=== PATIENT | female | born 1930 | race Caucasian/White ===

== ENCOUNTER 2017-06-11 12:28 | Outpatient (CLI) | payer MEDICARE, BC ==
--- NOTE | 2017-06-11 15:27 | ULT ---
ULTRSOUND THYROID: Date: 06-11-17 History: Follow up thyroid nodule in 86-year-old female. Comparison: 04-06-14 FINDINGS: Isthmus: 0.5 cm anteroposterior. Right lobe: 3.6 x 1.2 x 1.7 cm. Left lobe: 3.8 x 1.8 x 2.0 cm. The thyroid parenchyma is difficult to visualized for technical reasons. Previously, there was a round mixed solid and cystic well circumscribed non-lobulated lesion in the l eft lower pole. It was previously given a measurement of 1.1 x 0.9 x 1.2 cm. Current measurements are 1.5 x 1.6 x 1.4 cm, slightly larger, very slow growing. The left upper pole is difficult to visualize. The echogenicity is very heterogenous. The previously demonstrated slightly elongated, approximately 1 x 0.9 x 1.4 cm smoothly well circumscribed, cigar-sh aped solid nodule in the left mid pole with fairly homogeneous intermittent/low internal echogenicity , has not significantly changed. It displaces the left upper pole parenchyma. There is diffusely, sli ghtly heterogeneous parenchymal echogenicity bilaterally. No discrete nodule identified in the isthmu s or right lobe. IMPRESSION: 1. Very slow growing mixed solid and cystic benign nodule in left lower pole. 2. Stable solid nodule in left mid pole, unchanged. 3. Difficult to visualize left upper pole. POS: [facility]
[2017-06-11] MEDS ORDERED: Iopamidol 370 76% 100 ML VIAL ONE (17:06)
--- NOTE | 2017-06-11 17:16 | CT ---
HEAD CT WITH AND WITHOUT CONTRAST: Date: 06-11-17 Comparison: None. History: Occlusion of left posterior cerebral artery, confusion. Technique: Serial axial CT imaging is obtained at 5 mm intervals from vertex through skull base with and without contrast. FINDINGS: Imaged paranasal sinuses/mastoid air cells are well aerated. There is no displaced calvarial fracture . Precontrast imaging demonstrates no intracranial hemorrhages, midline shift, or mass effect. There is extensive periventricular deep and subcortical white matter hypodensity, evidence of small vessel di sease. The post contrast imaging is not tailored to evaluate the arterial structures as this study was not p erformed as a CT angiogram. There is a rim enhancing frontal lesion on the right abutting the anterio r aspect of the frontal horn of the right lateral ventricle. This lesion measures 1.7 cm and is new w hen compared to a CT angiogram of the head performed 07-17-16. No discrete additional lesion is noted. IMPRESSION: 1. 1.7 cm rim enhancing lesion within the right frontal region, which may signify a metastatic lesion or primary brain neoplasm. 2. Small vessel disease. 3. No intracranial hemorrhage. Code T-Dr. Torre made aware via phone at the time of interpretation on 06/11/2017. POS: [facility]
== END 2017-06-11 12:29 | disposition home or self-care (01) ==
LOC: ULT 12:28
PROVIDERS: ATTEND Specialist
DX: I66.22 Occlusion and stenosis of left posterior cerebral artery (principal); E04.1 Nontoxic single thyroid nodule; I67.9 Cerebrovascular disease, unspecified; G93.9 Disorder of brain, unspecified
CPT/HCPCS: 70470; 76536

== ENCOUNTER 2017-07-12 07:26 | Day surgery (SDC) | payer MEDICARE, BC ==
[2017-07-11 10:23] VITALS: BMI 31.0
[~2017-07-12 07:26] MED LIST: FLU VACC TS2017-18 (>65YR) 0.5 ML SYRINGE IM ONE
--- NOTE | 2017-07-12 09:12 | CT ---
CT HEAD NONCONTRAST: Date: 07/12/17 INDICATION: Intracranial mass. Preprocedural CT head prior to diagnostic lumbar puncture. FINDINGS: Noncontrast head CT, compared to 06/11/17, reveals grossly stable sized hypodense mass of the right f rontal lobe. There is no midline shift. No evidence of intracranial hemorrhage. Parenchymal volume lo ss and moderate chronic microvascular ischemic disease are present. IMPRESSION: Grossly stable sized hypodense mass of the right frontal lobe. POS: [facility]
[2017-07-12 09:46] VITALS: BP 138/95; TEMP 98.1
--- NOTE | 2017-07-12 10:16 | RAD ---
FLUOROSCOPIC GUIDED LUMBAR PUNCTURE: Clinical history: Intracranial lesion of indeterminate etiology. PROCEDURE: Informed consent was obtained from the patient. Prior to the procedure CT head examination was perfor med to exclude significant intracranial mass effect as a contraindication to the procedure. Review of the head CT does reveal grossly stable sized intracranial lesion without significant mass effect. The patient was escorted to the procedural suite and placed in a prone position. The low back was the n prepped and draped in standard sterile fashion. Topical anesthesia was achieved with buffered 1% Li docaine. A right intralaminar approach at the L3 level was selected. Using a 20 gauge needle, unevent ful access into the thecal sac was performed under fluoroscopic guidance with [facility]. Clear colorless CSF was acquired at the needle hub and subsequently, approximately 10 cc o f CSF was acquired and placed into four separate sealed sterile containers and sent to the laboratory for further analysis. There were no procedural complications. All devices were removed from the patient. Radiation Exposure Data: Fluoroscopy time: 0.2 minutes intermittent fluoroscopy. Dose: 2.8 mGy*cm^2. IMPRESSION: 1. Technically successful fluoroscopic guided lumbar puncture yielding 10 cc clear colorless CSF. 2. Laboratory results are pending. POS: [facility]
[2017-07-12 10:18] LABS: CSF Source CSF; Clarity Clear (Clear); RBC Count - Manual 0 /cumm (None Seen); Tube # 4; WBC/NonHematics Count - Manual 2 /cumm (0-5)
[2017-07-12 10:19] LABS: Color Of CSF Supernatant COLORLESS (Colorless); Tube # CSF 2; Unspun CSF Color COLORLESS (Colorless)
[2017-07-12 10:37] LABS: CSF, Glucose 71 mg/dl (40-70); CSF, Protein 51 mg/dL (15-40)
== END 2017-07-12 10:35 | disposition home or self-care (01) ==
LOC: RAD 07:26
PROVIDERS: ATTEND Surgery
DX: G93.9 Disorder of brain, unspecified (principal); I10 Essential (primary) hypertension; I25.119 Atherosclerotic heart disease of native coronary artery with unspecified angina pectoris; E78.00 Pure hypercholesterolemia, unspecified; Z86.73 Personal history of transient ischemic attack (TIA), and cerebral infarction without residual deficits; Z88.0 Allergy status to penicillin; Z79.82 Long term (current) use of aspirin; Z79.01 Long term (current) use of anticoagulants; Z95.5 Presence of coronary angioplasty implant and graft; Z90.49 Acquired absence of other specified parts of digestive tract; Z98.890 Other specified postprocedural states
CPT/HCPCS: 62270; 70450; 82945; 84157; 87070; 87205; 88112; 89051

== ENCOUNTER 2017-07-25 12:30 | Inpatient (IN) | payer MEDICARE, BC ==
[2017-07-25 13:29] VITALS: BMI 31.6
[2017-08-02] MEDS ORDERED: Levofloxacin 500 mg/D5W 100 ml Premix Bag ONE (09:09)
[2017-08-02] MEDS ORDERED: Clindamycin/D5W 900 mg/50 ml Premix Bag ONE (09:09)
--- NOTE | 2017-08-02 09:40 | CT ---
PRE AND POSTCONTRAST HEAD CT: Date: 08/02/17 HISTORY: Brain Lab protocol. Preoperative exam for brain tumor. COMPARISON: 06/11/17. TECHNIQUE: Pre and postcontrast head CT is performed in the axial plane. FINDINGS: Redemonstration of a predominantly hypodense mass in the right frontal lobe white matter. Postcontras t images demonstrate peripheral enhancement. There is also evidence of vascularity within this lesion . Lesion measures 2.1 x 1.9 cm. There are white matter hypodensities due to chronic small vessel isch emic change. Cortical mcclendon-white matter differentiation is preserved. Adequate aeration of the sinuses and mastoid air cells. There is cavernous carotid atherosclerosis. I ntact calvarium. IMPRESSION: Peripherally enhancing mass in the right frontal lobe, similar in location to the previous examinatio n. When compared to the prior exam, there has been slight interval increase in size. Currently, the m ass measures 2.1 x 1.9 cm (previously measuring 1.6 x 1.6 cm). POS: [facility]
[2017-08-02] MEDS ORDERED: Sodium Chloride 0.9% 10 ML ONE ×2 (10:05→10:06)
[2017-08-02] MEDS ORDERED: Thrombin 5000 UNITS/5 ML VIAL ONE (10:06)
[2017-08-02] MEDS ORDERED: Bacitracin Zinc Ointment 30 gm TUBE ONE (10:06)
[2017-08-02] MEDS ORDERED: Fentanyl 100 MCG/2 ML VIAL ONE ×3 (10:27→15:21)
[2017-08-02] MEDS ORDERED: PHENYLEPHRINE-NS 100 MCG/ML 10 ML SYRINGE ONE ×2 (11:47→12:55)
[2017-08-02] MEDS ORDERED: Labetalol 100 MG/20 ML MDV ONE (11:47)
[2017-08-02] MEDS ORDERED: Ondansetron PF 4 MG/2 ML Vial ONE (11:47)
[2017-08-02] MEDS ORDERED: PROPOFOL 200 MG/20 ML VIAL ONE (11:47)
[2017-08-02] MEDS ORDERED: Dexamethasone 20 MG/5 ML VIAL ONE (11:47)
[2017-08-02] MEDS ORDERED: Lidocaine 1% PF 5 ML VIAL ONE (11:47)
[2017-08-02] MEDS ORDERED: Glycopyrrolate 0.2 MG/ML 5 ML SYRINGE ONE (11:47)
[2017-08-02] MEDS ORDERED: Phenylephrine HCL 10 MG/ML VIAL ONE (12:59)
[2017-08-02] MEDS ORDERED: Iopamidol 370 76% 100 ML VIAL ONE (13:24)
[2017-08-02] MEDS ORDERED: Promethazine HCl 25 MG/ML VIAL IM PRN ×2 (14:34→14:45)
[2017-08-02] MEDS ORDERED: Mag-Al 1200 mg/1200 mg/30 ML UDCUP PO PRN (14:34)
[2017-08-02] MEDS ORDERED: Docusate 100 MG CAP PO PRN (14:34)
[2017-08-02] MEDS ORDERED: Fleet Enema 133 ML BOT PR PRN (14:34)
[2017-08-02] MEDS ORDERED: Alendronate Sodium 70 mg Tablet PO SCH (14:45)
[2017-08-02] MEDS ORDERED: Ondansetron HCl/PF 4 MG/2 ML Vial IVP PRN (14:45)
[2017-08-02] MEDS ORDERED: Promethazine HCl 25 MG/ML VIAL SLOW IVP PRN (14:45)
[2017-08-02] MEDS ORDERED: Nitroglycerin 0.4 MG TAB (25 Tab Bottle) SL PRN (15:24)
[2017-08-02] MEDS: Sodium Chloride 0.9% 1,000 ML IV SCH (16:30)
[2017-08-02] MEDS: hydrALAZINE 10 MG TAB PO SCH (16:30)
[2017-08-02] MEDS: Dofetilide 0.125 MG CAP PO SCH ×2 (16:30→20:49)
[2017-08-02] MEDS: Dexamethasone 4 mg/ml Vial SLOW IVP SCH (18:05)
[2017-08-02] MEDS: HYDROcodone/Acetaminophen 7.5/325 mg Tablet PO PRN ×2 (18:05→22:01)
[2017-08-02] MEDS: Clindamycin/D5W 900 MG in Premix Bag 1 BAG IVPB SCH (18:05)
[2017-08-02] MEDS: hydrALAZINE 20 MG/ML VIAL SLOW IVP PRN (18:09)
--- NOTE | 2017-08-02 20:03 | OP ---
SURGEON: Winston Marie M.D. TONG CARRIER: Servando Alegria PA-C OR: 12. WOUND: Type 1 wound. 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 PROCEDURES: 1. Stereotactic right frontal craniotomy for right frontal tumor resection using stereotactic CT rosie dance. 2. Use of operative microscope for microdissection. DESCRIPTION OF PROCEDURE: After informed consent was obtained from the patient, the patient was brou ght to OR 12. Proper patient pause and identification was carried out. She was placed under excelle nt general endotracheal anesthesia and positioned supine on the operating room table. Her head secur ed to the Donora edie, which was also secured to the Donora sulfide head operator. Hair was clipped in t he right frontal region near Shelbie's point and a linear palmira drawn out following stereotactic regist ration and assessment of anatomic landmarks. This area was sterilely cleansed, prepared, and draped, and proper patient pause and identification was carried out. The wound was then opened with a combi nation of sharp, monopolar, and blunt dissection and retraction occurred. A circular craniotomy was fashioned and craniotomy flap lifted. The dura was opened exposing the underlying brain. Using ster eotactic and anatomic guidance, we then proceeded with excellent accuracy down to the right frontal m ass. It was quite obvious that both on preoperative imaging and intraoperatively it was hemorrhagic, receiving blood supply from the surrounding brain and deeper and medially from ependymal vessels. I felt like we had an excellent resection. Hemostasis was maximized. We did enter the ventricle as t his was the apex of the lesion inferiorly and medially and the hemostasis was again maximized. We th en brought the microscope in for microdissection and further assessed our resection. Again, I was pl eased taken the resection back to edematous white matter that surrounded the bulk of the lesion. Pre liminary pathology was consistent with hypercellular mass. Again, I suspect this is high grade gliom a. More tissue had been sent in bulk following the frozen assessment for permanent analysis. Copiou s irrigation occurred. Hemostasis again was maximized throughout. The wound was then closed in karlene omic layers including affixing the bone flap with titanium plates and screws and closing the scalp in anatomic layers. The patient then emerged from anesthesia.
[2017-08-02] MEDS: Acetaminophen 325 MG TAB PO PRN (20:47)
[2017-08-02] MEDS: Famotidine/PF 20 mg/2ml Vial SLOW IVP SCH (20:49)
[2017-08-02] MEDS: levETIRAcetam In NaCl (Iso-Os) 250 MG in Premix Bag 1 BAG IVPB SCH (20:50)
[2017-08-03] MEDS: Clindamycin/D5W 900 MG in Premix Bag 1 BAG IVPB SCH ×2 (00:03→05:01)
[2017-08-03] MEDS: Losartan 25 MG TAB PO SCH ×3 (00:03→21:14)
[2017-08-03] MEDS: Dexamethasone 4 mg/ml Vial SLOW IVP SCH ×5 (00:03→23:56)
[2017-08-03] MEDS: hydrALAZINE 10 MG TAB PO SCH ×4 (00:03→21:14)
[2017-08-03] MEDS: diphenhydrAMINE 25 MG CAP PO SCH ×2 (00:04→21:17)
[2017-08-03] MEDS: Sodium Chloride 0.9% 1,000 ML IV SCH ×3 (05:01→21:23)
[2017-08-03 07:58] LABS: Mean Corpuscular HGB CONC 31.8 g/dL (32.0-36.0); Mean Corpuscular Hemoglobin 31.8 pg (27.0-31.0); Mean Corpuscular Volume 99.9 fl (81.0-99.0); Mean Platelet Volume 10.5 fL (7.4-10.4); Platelet Count 110 thou/uL (130-400); RBC Distribution Width 12.2 % (11.5-14.5); Red Blood Cell (RBC) Count 3.76 mill/uL (4.20-5.40); White Blood Cell (WBC) Count 20.3 thou/uL (4.8-10.8)
[2017-08-03 08:39] LABS: Band 15 % (5-11); Lymphocytes 10 % (21-51); MDiff Complete? YES; Monocytes 4 % (0-10); Neutrophil 71 % (42-75); RBC Morphology Normal
[2017-08-03] MEDS ORDERED: MAGNESIUM GLUCONATE 500 MG PO SCH (09:00)
[2017-08-03] MEDS: Calcium Carbonate 600 MG TAB PO SCH (09:10)
[2017-08-03] MEDS: Ezetimibe 10 MG TAB PO SCH (09:10)
[2017-08-03] MEDS: Famotidine/PF 20 mg/2ml Vial SLOW IVP SCH ×2 (09:11→21:16)
[2017-08-03] MEDS: Dofetilide 0.125 MG CAP PO SCH ×3 (09:12→21:17)
--- NOTE | 2017-08-03 09:56 | RAD ---
PORTABLE CHEST 1 VIEW: DATE: 08/03/17. TIME: 8:45 a.m. HISTORY: Fever. FINDINGS/IMPRESSION: The heart is enlarged. There is elevation of the right hemidiaphragm. The aorta is tortuous. A lef t-sided pacing device is present. No lobar consolidation, pneumothoraces, dannie pulmonary edema, or large effusions are seen. POS: [facility]
--- NOTE | 2017-08-03 10:06 | PRG ---
DATE OF SERVICE: 08/03/2017 Ms. Borges is postoperative day 1 from right frontal stereotactic craniotomy for tumor resection. I suspect preoperatively this is a high grade glioma and remains so. We had a satisfactory resection a nd the patient is doing well this morning. She is alert, appropriate. There may be very subtle left facial droop and the patient while she is alert does have some confusion and tells me repeatedly abo ut her family. She is in no apparent distress and moves all extremities to command. I think it best to pursue transfer to the floor to start to mobilize her and allow her to be in the company of her f amily to help with reorientation. We will also consult physiatry and continue her on Decadron. We w ill await final pathology.
--- NOTE | 2017-08-03 10:46 | CON ---
DATE OF CONSULTATION: 08/03/2017 HISTORY: This is an 86-year-old female. REASON FOR CONSULTATION: Ongoing ICU stay for 24 hours. She underwent a craniotomy by Dr. Marie for enlarging right frontal mass. I reviewed Dr. Marie's n otes and past medical history. the patient is awake, alert, responsive, but clearly lethargic. It was a 90 mm growing enhancing mass. She is apparently having some memory dysfunction. The patien t presently denies any chest pain or difficulty breathing, coughing or wheezing. She apparently has been seeing a local remediation bioanalytics consultant here. 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 Prior to that, she apparently underwent a spinal tap from what I am told. PAST MEDICAL HISTORY: Otherwise pertinent for a thyroid lesion, history of coronary artery disease, diabetes, history of previous CVA. PAST SURGICAL HISTORY: Include a previous stenting, previous carotid surgery. MEDICATIONS: Her medicine from home prior to this surgery included aspirin, Plavix, calcium, Tikosyn , Estrace, Zetia, fish oil. Losartan 50, glucosamine, Naproxen, nitroglycerin. ALLERGIES: She has allergies to PENICILLIN, HYDROCODONE, . SOCIAL/FAMILY HISTORY: Otherwise unremarkable. FAMILY HISTORY: Family history otherwise unremarkable. REVIEW OF SYSTEMS: Negative. PHYSICAL EXAMINATION: GENERAL: In the ICU, awake, responsive, in no distress. VITAL SIGNS: Sats are 96% on room air, pulse 80, blood pressure 183/86, respirations 14. NEURO: Awake, alert, responsive. CHEST: No wheezing or crackles. CARDIAC: Normal S1, S2. No gallops. ABDOMEN: Soft, no masses. Please note I reviewed all the old medical records, x-rays, imaging studies. IMPRESSION: 1. Status post craniotomy right frontal tumor for a glioblastoma. 2. History of coronary disease with multiple stents. PLAN: I have ordered a chest x-ray because she has got leukocytosis. It does not appear she has any obvious infection. White count 20,000, H&H 12 and 37. Her labs were reviewed all extensively, white count 8000 yesterda y. Chemistry profile otherwise shows normal BUN and creatinine. PTH 117. TSH is normal. The plan is to observe her in the ICU for another 24 hours. She is on Decadron, blood pressure medic ation metoprolol 50 twice a day, Cozaar 50, Keppra 250 twice a day. I will talk with the family as they arrive. Continue supportive care and PT. This is a 70 minute consultation note, 50% of the time was spent in direct patient care at the [facility]
[2017-08-03] MEDS: levETIRAcetam In NaCl (Iso-Os) 250 MG in Premix Bag 1 BAG IVPB SCH (20:01)
[2017-08-03] MEDS: levETIRAcetam 500 MG TAB PO SCH (21:17)
[2017-08-04] MEDS: Dexamethasone 4 mg/ml Vial SLOW IVP SCH ×3 (06:38→18:33)
[2017-08-04 09:08] LABS: Anion Gap 13 mmol/L (10-20); BUN (Urea Nitrogen) 23 mg/dL (9.8-20.1); Calc. Creatinine Clearance 60 mL/min (70-130); Carbon Dioxide 18 mmol/L (23-31); Chloride 115 mmol/L (98-107); Estimated GFR-MDRD 63; Glucose 142 mg/dL (83-110); Potassium 4.4 mmol/L (3.5-5.1); Sodium 142 mmol/L (136-145)
[2017-08-04] MEDS: Losartan 25 MG TAB PO SCH ×2 (09:17→20:56)
[2017-08-04] MEDS: hydrALAZINE 10 MG TAB PO SCH ×3 (09:17→20:57)
[2017-08-04] MEDS: Ezetimibe 10 MG TAB PO SCH (09:17)
[2017-08-04] MEDS: levETIRAcetam 500 MG TAB PO SCH ×2 (09:17→20:55)
[2017-08-04] MEDS: Dofetilide 0.125 MG CAP PO SCH ×3 (09:18→20:56)
[2017-08-04] MEDS: Calcium Carbonate 600 MG TAB PO SCH (09:18)
[2017-08-04] MEDS: Famotidine/PF 20 mg/2ml Vial SLOW IVP SCH (09:18)
[2017-08-04] MEDS: Sodium Chloride 0.9% 1,000 ML IV SCH (09:18)
--- NOTE | 2017-08-04 10:47 | PRG ---
DATE OF SERVICE: 08/04/2017 Ms. Borges is postoperative day 2 from right frontal stereotactic craniotomy for high grade glioma re section. Pathology has been sent to [facility] for further delineation, certainly appeared to be a high grade glioma notably a glioblastoma in my opinion during surgery. Specimen was sent and has bee n consistent with hypercellularity and of high vascular nature. We will await final pathology, but amber lim will treat it as a high grade glioma. She is doing very well. She is alert and oriented to person , year, and tells me she is at "med" and let her know she is at [place]. She moves all extremitie s to command. Her wound is healing well. I would be fine with transfer to rehabilitation. She is a lready up ambulating and voiding on her own and tolerating oral.
[2017-08-04] MEDS: hydrALAZINE 20 MG/ML VIAL SLOW IVP PRN (18:50)
[2017-08-04] MEDS: Acetaminophen 325 MG TAB PO PRN (18:55)
[2017-08-04] MEDS: Famotidine 20 MG TAB PO SCH (20:56)
[2017-08-04] MEDS: diphenhydrAMINE 25 MG CAP PO SCH (20:56)
[2017-08-05] MEDS: Sodium Chloride 0.9% 1,000 ML IV SCH ×2 (00:51→15:05)
[2017-08-05] MEDS: Dexamethasone 4 mg/ml Vial SLOW IVP SCH ×2 (00:53→06:48)
[2017-08-05] MEDS: Dexamethasone 4 MG TAB PO SCH ×2 (06:59→12:06)
[2017-08-05] MEDS: Dofetilide 0.125 MG CAP PO SCH ×3 (08:41→21:51)
[2017-08-05] MEDS: Ezetimibe 10 MG TAB PO SCH (08:41)
[2017-08-05] MEDS: Losartan 25 MG TAB PO SCH ×2 (08:41→21:50)
[2017-08-05] MEDS: Famotidine 20 MG TAB PO SCH ×2 (08:42→21:52)
[2017-08-05] MEDS: Calcium Carbonate 600 MG TAB PO SCH (08:42)
[2017-08-05] MEDS: levETIRAcetam 500 MG TAB PO SCH ×2 (08:42→21:51)
[2017-08-05] MEDS ORDERED: Estradiol 1 MG TAB PO SCH (09:00)
[2017-08-05] MEDS: hydrALAZINE 10 MG TAB PO SCH ×3 (09:48→21:51)
--- NOTE | 2017-08-05 15:16 | PRG ---
DATE OF SERVICE: 08/05/2017 SUBJECTIVE: Ms. Borges is postoperative day 3 following right frontal stereotactic craniotomy for tu mor resection. She is doing well, alert, appropriate with a well healing wound. She has had periods of hallucinations and delirium. No doubt related to her age and her steroids. Undoubtedly, her del irium is related to her age, recent surgery, but also steroid therapy as well. We are tapering this down. She is already mobilizing and I have let the family to know that we will await the pathology, she has been sent to [facility] for further evaluation. My suspicion again is high-grade glioma. T his is my suspicion both preoperatively, intraoperatively, and still postoperatively. My anticipatio n is with rehab.
[2017-08-05] MEDS ORDERED: Dexamethasone 4 mg/ml Vial SLOW IVP SCH (18:00)
[2017-08-05] MEDS: diphenhydrAMINE 25 MG CAP PO SCH (21:50)
[2017-08-06] MEDS: Sodium Chloride 0.9% 1,000 ML IV SCH (07:27)
[2017-08-06 08:03] VITALS: BP 166/94; TEMP 97.8
[2017-08-06] MEDS: Calcium Carbonate 600 MG TAB PO SCH (08:18)
[2017-08-06] MEDS: Ezetimibe 10 MG TAB PO SCH (08:18)
[2017-08-06] MEDS: Losartan 25 MG TAB PO SCH (08:18)
[2017-08-06] MEDS: levETIRAcetam 500 MG TAB PO SCH (08:18)
[2017-08-06] MEDS: hydrALAZINE 10 MG TAB PO SCH (08:19)
[2017-08-06] MEDS: Dofetilide 0.125 MG CAP PO SCH (08:19)
[2017-08-06] MEDS: Famotidine 20 MG TAB PO SCH (08:19)
--- NOTE | 2017-08-06 09:56 | PRG ---
DATE OF SERVICE: 08/06/2017 Ms. Borges is now postoperative day #4, having undergone tumor resection. She continues to improve. She is tolerating a solid diet and ambulating as well as voiding and her pain is under good control with oral medications. She has a good at neurologic baseline, is oriented to person, place and time. She is stable for discharge and she will finish up her Decadron and Protonix prescriptions. I woul d like her to remain on Keppra for the next 5 days. This prescription has been written. She will di scharge to inpatient rehab later today. There was no family at bedside to update this morning. Plea se call with any questions in patient's neurologic status. Otherwise, we will follow up on an outpat ient basis.
== END 2017-08-06 10:44 | DRG 26 ==
LOC: SURG A 08-02 07:21 → CCU 08-02 15:05 → SURG A 08-03 12:09
PROVIDERS: ADMIT Surgery; ATTEND Surgery
PROC: 00B70ZX Excision of Cerebral Hemisphere, Open Approach, Diagnostic (ICD-10-PCS; principal; 2017-08-02)
PROC: 2W30XYZ Immobilization of Head using Other Device (ICD-10-PCS; 2017-08-02)
DX: D49.6 Neoplasm of unspecified behavior of brain (principal); F05 Delirium due to known physiological condition; R44.3 Hallucinations, unspecified; T38.0X5A Adverse effect of glucocorticoids and synthetic analogues, initial encounter; Z79.02 Long term (current) use of antithrombotics/antiplatelets; I25.10 Atherosclerotic heart disease of native coronary artery without angina pectoris; Z95.5 Presence of coronary angioplasty implant and graft; Z86.73 Personal history of transient ischemic attack (TIA), and cerebral infarction without residual deficits; D72.829 Elevated white blood cell count, unspecified
CPT/HCPCS: 36416; 70470; 71045; 80048; 85025; 88307; 88325; 88331; 88334; C1713; G8978-GP-CL; G8979-GP-CJ; G8987-GO-CJ; G8988-GO-CI; J0360; J1100; J1953; J1956; J2001; J2370; J2405; J2550; J2704; J3010; J3490; J7050; J8499; J8540; S0028

== ENCOUNTER 2017-07-25 12:53 | Outpatient (CLI) | payer MEDICARE, BC ==
[2017-07-25 14:37] LABS: Hemoglobin 13.5 g/dL (12.0-16.0); Mean Corpuscular HGB CONC 33.4 g/dL (32.0-36.0); Mean Corpuscular Hemoglobin 32.8 pg (27.0-31.0); Mean Corpuscular Volume 98.3 fl (81.0-99.0); Mean Platelet Volume 9.2 fL (7.4-10.4); Platelet Count 163 thou/uL (130-400); Red Blood Cell (RBC) Count 4.12 mill/uL (4.20-5.40); White Blood Cell (WBC) Count 8.5 thou/uL (4.8-10.8)
[2017-07-25 14:43] LABS: INR-International Normal Ratio 0.9; PTT 24.1 SEC (22.9-36.1); Prothrombin Time 12.5 SEC (12.0-14.7)
[2017-07-25 15:03] LABS: Anion Gap 12 mmol/L (10-20); BUN (Urea Nitrogen) 22 mg/dL (9.8-20.1); Calc. Creatinine Clearance 0 mL/min (70-130); Calcium 10.3 mg/dL (7.8-10.44); Carbon Dioxide 25 mmol/L (23-31); Chloride 106 mmol/L (98-107); Estimated GFR-MDRD 54; Glucose 87 mg/dL (83-110); Potassium 4.3 mmol/L (3.5-5.1); Sodium 139 mmol/L (136-145)
== END 2017-07-25 12:54 | disposition home or self-care (01) ==
LOC: LABBT 12:53
PROVIDERS: ATTEND Surgery
DX: Z01.810 Encounter for preprocedural cardiovascular examination (principal); Z01.812 Encounter for preprocedural laboratory examination; C71.9 Malignant neoplasm of brain, unspecified
CPT/HCPCS: 80048; 85027; 85610; 85730; 93005; 93010

== ENCOUNTER 2017-08-22 11:41 | Inpatient (IN) | payer MEDICARE, BC ==
[2017-08-22] MEDS ORDERED: Heparin 1,000 UNITS/ML VIAL ONE (12:00)
[2017-08-22 12:06] LABS: #Basophils 0.1 thou/uL (0.0-0.2); #Eosinphils 0.1 thou/uL (0.0-0.7); #Lymphocytes 1.5 thou/uL (1.20-3.40); #Neutrophils 11.7 thou/uL (1.40-6.50); %Basophils 0.4 % (0.0-1.0); %Eosinophils 0.4 % (0.0-10.0); %Lymphocytes 10.5 % (21.0-51.0); %Monocytes 7.3 % (0.0-10.0); %Neutrophils 81.4 % (42.0-75.0); Hemoglobin 13.3 g/dL (12.0-16.0); Mean Corpuscular HGB CONC 33.3 g/dL (32.0-36.0); Mean Corpuscular Hemoglobin 32.5 pg (27.0-31.0); Mean Corpuscular Volume 97.5 fl (81.0-99.0); Mean Platelet Volume 8.6 fL (7.4-10.4); Platelet Count 154 thou/uL (130-400); RBC Distribution Width 12.5 % (11.5-14.5); White Blood Cell (WBC) Count 14.3 thou/uL (4.8-10.8)
--- NOTE | 2017-08-22 12:15 | RAD ---
CHEST ONE VIEW: History: Fall. Comparison: 08-03-17 FINDINGS: Dual-lead pacer is similar. Cardiac silhouette and mediastinal contours are similar. No new acute airspace consolidation, pneumothorax, or effusion. No displaced rib fracture is apprecia zaheer. IMPRESSION: No acute intrathoracic abnormality. No significant change. POS: [facility]
[2017-08-22 12:26] LABS: ALT (SGPT) 21 U/L (8-55); AST (SGOT) 19 U/L (5-34); Albumin 4.2 g/dL (3.4-4.8); Alkaline Phosphatase 83 U/L (40-150); Anion Gap 17 mmol/L (10-20); BUN (Urea Nitrogen) 21 mg/dL (9.8-20.1); Bilirubin, Total 0.8 mg/dL (0.2-1.2); CK (CPK) 45 U/L (29-168); Calc. Creatinine Clearance 0 mL/min (70-130); Calcium 9.9 mg/dL (7.8-10.44); Carbon Dioxide 21 mmol/L (23-31); Chloride 102 mmol/L (98-107); Estimated GFR-MDRD 49; Globulin 2.9 g/dL (2.4-3.5); Glucose 161 mg/dL (83-110); Potassium 4.9 mmol/L (3.5-5.1); Protein, Total 7.1 g/dL (6.0-8.3); Sodium 135 mmol/L (136-145)
[2017-08-22 12:28] LABS: CKMB 1.4 ng/mL (0-6.6); Troponin I 0.019 ng/mL (< 0.028)
--- NOTE | 2017-08-22 12:40 | CT ---
CT BRAIN WITHOUT CONTRAST: 08/22/2017 HISTORY: Fall on Plavix. COMPARISON: 07/12/2017 FINDINGS: The patient is status post right frontal craniotomy, new when compared to prior imaging. The visuali zed paranasal sinuses/mastoid air cells are well aerated. There is no displaced calvarial fracture. There is periventricular hypodensity, and there is cerebral volume loss. Deep to the calvarial defect, there is a nonspecific, heterogeneous lesion within the right frontal l obe, measuring in the 3.3 x 3.1 cm range. It demonstrates components that are hypodense, isodense, a nd hyperdense, when compared to the adjacent brain parenchyma. This area of abnormal density is larg er than on the 07/12/2017 examination, but the patient has undergone interval surgery. No midline shift or mass effect. Mild soft tissue swelling is seen lateral to the right orbit. IMPRESSION: 1. A 3.3 x 3.1 cm heterogeneous intraaxial lesion in the right frontal region. This may simply repr esent a postoperative cavity. There is a component of linear hyperdensity, which suggests a degree o f hemorrhage associated with this, which may be posttraumatic and/or postoperative. A brain MRI woul d be required to evaluate the postoperative cavity for a potential underlying residual lesion. 2. Soft tissue swelling in the periorbital region, laterally, on the right. Dr. Jacobs was made aware at 12:25 p.m. on 08/22/2017. CODE CR CODE T POS: [facility]
[2017-08-22 12:59] LABS: Prothrombin Time 13.7 SEC (12.0-14.7)
[2017-08-22 13:00] LABS: PTT 34.9 SEC (22.9-36.1)
--- NOTE | 2017-08-22 13:27 | CT ---
CERVICAL SPINE CT WITHOUT CONTRAST: Date: 08-22-17 Comparison: None. History: Pain, fall. Technique: Serial axial CT imaging at 2.5 mm intervals from skull base through lung apices without co ntrast. Coronal and sagittal reformatted imaging obtained. FINDINGS: Imaged lung apices are unremarkable. Incompletely imaged transvenous pacing device noted. Scattered atherosclerotic calcification of the carotid system noted bilaterally. The thyroid gland is lobulated and heterogenous with numerous associate nodules, incompletely assessed on this exam, miguel uring up to 1.2 cm on the left. The thyroid gland was better assessed on 06-11-17 thyroid ultrasound. The C1 ring is intact. Occipital condyles, dens, and C1-2 articulation appear within normal limits. T here is moderate degenerative changes at the atlantoaxial interspace. The craniocervical and cervicot horacic junction are intact. There is no significant anterolisthesis or retrolisthesis. No prevertebral soft tissue swelling. Disc space narrowing and degenerative endplate changes are noted at C3-4, C4-5, and C5-6. There is multil evel facet hypertrophic change, most prominent on the left at C2-3, C3-4 and C5-6. No displaced fracture or evidence of dislocation is seen. IMPRESSION: 1. Multilevel degenerative change with no displaced fracture or evidence of dislocation. 2. Results called to Dr. Jacobs at approximately 12:40 p.m. 08-22-17. Code CR. POS: [facility]
--- NOTE | 2017-08-22 13:28 | CT ---
CT THORACIC SPINE: 08/22/2017 HISTORY: Fall. Trauma. Pain. COMPARISON: None. TECHNIQUE: Serial axial CT imaging at 3.75 mm intervals through the thoracic spine without contrast. Coronal an d sagittal reformatted imaging obtained. FINDINGS: The imaged lung parenchyma appears grossly unremarkable. A transvenous pacing device is present. Coronary arterial calcification and stent material are parti ally imaged. There is scattered atherosclerotic calcification of the visualized aorta. Evaluation for central canal and/or neural foraminal stenosis is limited on routine CT. There is no evidence for an acute fracture within the thoracic spine. No evidence for thoracic spine dislocation. No anterolisthesis or retrolisthesis is evident. IMPRESSION: No acute fracture or evidence of dislocation seen. The results were called to Dr. Jacobs at approximately 12:35 p.m. on 08/22/2017. CODE CR POS: [facility]
--- NOTE | 2017-08-22 13:31 | CT ---
CT LUMBAR SPINE: 08/22/2017 HISTORY: Fall. Trauma. Pain. COMPARISON: None. TECHNIQUE: Serial axial CT imaging at 2.5 mm intervals through the lumbar spine without contrast. Coronal and s agittal reformatted imaging obtained. FINDINGS: There is scattered atherosclerotic calcification of the abdominal aorta and its branches. There is a tiny, exophytic lesion emanating from the posterior aspect of the upper pole right kidney, too small to characterize. Punctate, nonobstructing stone noted in the mid pole of the right kidney . There is a posterior right renal cyst noted. There is a prominent exophytic cyst emanating from t he left kidney, measuring in the 5 cm range. Evaluation for central canal and/or neural foraminal stenosis is limited on routine CT. There is deg enerative change involving the sacroiliac joints, right greater than left. There is no displaced fracture or evidence of dislocation noted. Lumbar vertebral body height and al ignment appear within normal limits. There is disk space narrowing and degenerative endplate change with a vacuum disk present at the L5-S1 level. There is prominent bilateral facet hypertrophy at L3- L4, L4-L5, and L5-S1. IMPRESSION: No acute fracture or evidence of dislocation seen. Incidental findings as described above. Results called to Dr. Jacobs at 12:35 p.m. on 08/22/2017. CODE CR POS: [facility]
[2017-08-22] MEDS ORDERED: Acetaminophen 500 MG TAB ONE (14:15)
[2017-08-22] MEDS ORDERED: Clindamycin 150 MG CAP ONE (14:15)
[2017-08-22 15:21] LABS: Bilirubin Negative (Negative); Blood, Urine Negative (Negative); Clarity CLEAR (Clear); Glucose, Urine (Dipstick) Negative (Negative); Leukocyte Negative (Negative); Nitrite Negative (Negative); Protein, Urine (Dipstick) Negative (Neg-Trace); Urobilinogen 0.2 mg/dL (0.2-1.0); pH, Urine 6.5 (5.0-9.0)
[2017-08-22 17:53] LABS: PTT 33.7 SEC (22.9-36.1); Prothrombin Time 13.5 SEC (12.0-14.7)
--- NOTE | 2017-08-22 18:01 | HP ---
PRIMARY CARE PROVIDER: Lukas Yates M.D. Referred to [facility] by [facility]. HISTORY OF PRESENT ILLNESS: The patient was found down on the floor this morning by her daughter. S he was noted to have redness about her right cheek yesterday and today. It covers her entire right f ankur including her nose. Her temperature was 101 in the ER, she was noted not to have any chills or s weats by the family. She had brain surgery this month on the here for craniotomy for glioblastom a. She has been lucid at times, not lucid at times. 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 CURRENT MEDICATIONS: Alendronate 70 mg once a week, aspirin 81 mg a day, hydralazine 10 mg 3 times a day, losartan 50 mg twice a day, metoprolol 25 mg twice a day, Zetia 10 mg a day, Ranexa 500 mg twic e a day, vitamin D3 daily, Tikosyn 125 mcg 3 times a day. ALLERGIES: HYDROCODONE, PENICILLIN. PAST SURGICAL HISTORY: Right carotid endarterectomy, pacemaker, cardiac ablation craniotomy on 08/02. FAMILY HISTORY: Daughter here thinks the father of cancer and the mother had mini strokes and d ementia. SOCIAL HISTORY: The patient is . No tobacco, no alcohol. CODE STATUS: FULL per daughter who is at bedside. REVIEW OF SYSTEMS: Unobtainable. The patient will smile and respond, but gives no lucid answers at the present time. VITAL SIGNS: Done in the emergency room. Most recent blood pressure 124/68, pulse 80, respirations 17, temperature 99.9, O2 sat 94. Maximum temperature was 101 orally at 1329 hours. HEENT: Revealed pupils equal, round. Extraocular movements are grossly intact. Tympanic membranes are clear. Nose is clear. Oral mucous membranes are wet. NECK: No jugular venous distention, adenopathy or thyromegaly. CHEST: Clear to auscultation and percussion. HEART: Regular rate and rhythm. First and second heart sounds are clear. No murmurs or gallops see n. ABDOMEN: Soft, bowel sounds are normal. No hepatosplenomegaly, no mass, no rebound, no bruits. EXTREMITIES: Reveal no cyanosis, clubbing or edema. PULSES: Carotid, radial, femoral, and dorsalis pedis pulses intact. SKIN: She has an incision on her right temporal area with some surrounding erythema, but no fluctuan ce or drainage. She has an erythema from the left side of her nose, her right cheek down to the jawl ine to the ear, to the lateral side of the right orbit. NEUROLOGIC: Difficult to exam. Cranial nerves II-XII are intact. Deep tendon reflexes are grossly symmetric. Toes were downgoing. Strength was grossly symmetric. LABORATORY AND X-RAY FINDINGS: Chest x-ray: Pacemaker, left upper chest. Tortuous aorta. Lung fie lds clear, no cardiomegaly, reviewed by me. Brain CT, postoperative changes in the right frontal are a with a void and perhaps some hemorrhagic transformation. EKG paced rhythm, AV sequential dual rebekah carlos pacemaker reviewed by me. C-spine is reported as no change, thoracic and lumbar spine, there is no fracture. LABORATORY DATA: White count 14.3, hemoglobin 13.3, platelet count 154,000. INR 1.0. Comp metaboli c profile, creatinine 1.06, BUN is 21, CO2 is 21, sodium 135, potassium 4.9, chloride 102. Liver fun ction tests normal. Cardiac enzymes normal. Urinalysis clear. ASSESSMENT: 1. Cellulitis of the face. 2. Postop glioblastoma of the right frontal lobe. 3. Paced rhythm with history of atrial arrhythmias. 4. Hypertension. 5. Dyslipidemia. PLAN: 1. IV antibiotics because of recent surgery. We will give both Rocephin and vancomycin transiently. Blood cultures have been ordered. 2. Postop changes on CT scan. I have discussed it with Dr. Marie's PA or expected and required no further investigation. 3. Continue Tikosyn, losartan, metoprolol. 4. Continue Levitra.
[2017-08-22] MEDS: Acetaminophen 325 MG TAB PO PRN ×2 (18:38→23:31)
[2017-08-22] MEDS: Sodium Chloride 0.9% 1,000 ML IV SCH (18:38)
[2017-08-22] MEDS ORDERED: cefTRIAXone\\ROCEPHIN 2 GM in Sodium Chloride 0.9% 100 ML IVPB SCH (20:00)
[2017-08-22] MEDS: Ondansetron HCl/PF 4 MG/2 ML Vial IVP PRN (20:38)
[2017-08-22] MEDS ORDERED: Vancomycin HCl 1 GM in Premix Bag 1 BAG IVPB SCH (21:00)
[2017-08-22] MEDS: levETIRAcetam 500 MG TAB PO SCH (21:19)
[2017-08-22] MEDS: Dofetilide 0.125 MG CAP PO SCH (21:20)
[2017-08-22] MEDS: Losartan 25 MG TAB PO SCH (21:20)
[2017-08-23] MEDS ORDERED: Lorazepam 2 MG/ML VIAL SLOW IVP PRN (03:49)
[2017-08-23 05:35] LABS: #Lymphocytes 1.3 thou/uL (1.20-3.40); #Monocytes 1.1 thou/uL (0.11-0.59); %Basophils 0.1 % (0.0-1.0); %Eosinophils 0.1 % (0.0-10.0); %Lymphocytes 7.8 % (21.0-51.0); %Monocytes 6.5 % (0.0-10.0); %Neutrophils 85.5 % (42.0-75.0); Hemoglobin 11.7 g/dL (12.0-16.0); Mean Corpuscular HGB CONC 33.5 g/dL (32.0-36.0); Mean Corpuscular Hemoglobin 32.3 pg (27.0-31.0); Mean Corpuscular Volume 96.4 fl (81.0-99.0); Mean Platelet Volume 8.9 fL (7.4-10.4); Platelet Count 149 thou/uL (130-400); RBC Distribution Width 12.3 % (11.5-14.5); Red Blood Cell (RBC) Count 3.61 mill/uL (4.20-5.40); White Blood Cell (WBC) Count 16.4 thou/uL (4.8-10.8)
[2017-08-23 06:06] LABS: Anion Gap 13 mmol/L (10-20); BUN (Urea Nitrogen) 14 mg/dL (9.8-20.1); Calc. Creatinine Clearance 62 mL/min (70-130); Calcium 9.4 mg/dL (7.8-10.44); Carbon Dioxide 21 mmol/L (23-31); Chloride 105 mmol/L (98-107); Estimated GFR-MDRD 66; Glucose 153 mg/dL (83-110); Potassium 3.7 mmol/L (3.5-5.1); Sodium 135 mmol/L (136-145)
[2017-08-23] MEDS ORDERED: Prevnar 13-Val Conj/PF 0.5 ML SYRINGE IM ONE (09:00)
[2017-08-23] MEDS: Dofetilide 0.125 MG CAP PO SCH ×3 (09:12→21:03)
[2017-08-23] MEDS: Losartan 25 MG TAB PO SCH ×2 (09:12→20:50)
[2017-08-23] MEDS: levETIRAcetam 500 MG TAB PO SCH ×2 (09:12→20:49)
[2017-08-23] MEDS: Sodium Chloride 0.9% 1,000 ML IV SCH (09:19)
--- NOTE | 2017-08-23 13:37 | PRG ---
DATE OF SERVICE: 08/23/2017 I was contacted to see Ms. Borges and talking with the patient's son. I was asked to see Ms. Borges, she is well known to me. 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 I just saw her in clinic on Sunday. Her wound is healing well. Neurologicall y, she was at her baseline, alert, appropriate with some mild confusion, but following commands and f rankly looked quite good. We set her up to see Oncology on Sunday and according to her son, ike owusu Sunday and Sunday, she began to have some swelling in the right side of her face. This though subsequently improved on its own. She then was found down yesterday and full cranial spinal imaging is negative frankly and looking at her head CT, she has resection cavity consistent with where I took her tumor out there is some Surgicel in the resection cavity that is dissolvable and for hemostasis . There is no pneumocephalus or nothing convincing for intracranial abscess. There is also nothing convincing for extraaxial fluid or purulent material nor is there any evidence of subgaleal collectio n. I see no pneumocephalus and it is too early for any type of osteomyelitis; however, the nurse con tacted me that the patient's white count was 14 yesterday and 16 today. She has been afebrile and parisi d been on Decadron. Urine is clear of infection. However, there was some purulent material coming o ut of the bottom portion of the patient's wound. I went to see the wound and I was able to extrude a bit more purulent material and then there was no more, the Vicryl suture then came out and I suspect ed suture abscess. The patient's exam is consistent with vacillation between somnolence to awake and interactive with the examiner. However, she does appear to be encephalopathic. I am concerned abou t intracranial infection here, but I am not convinced of it. I have discussed with her son taking he r back to the OR today and he has asked if it is possible for us to just see how she does today and i nto the evening with antibiotics. I have let him know that is certainly reasonable. I would like to move her to the ICU and I will tentatively list her for surgical washout tomorrow. We will also ask Dr. Camacho to weigh in and will broaden her spectrum to vancomycin, cefepime and Flagyl. Looking at her wound now, there is no evidence of purulent material. There is no fluctuance underneath the woun d. The patient denies any evidence of headache, but again, I am not convinced by her exam necessaril y. We will plan to reevaluate her in the morning. This may have just been a superficial abscess rel ated to the suture that will improve with antibiotics, coupled with encephalopathy, made worse by the Ativan that she received this morning and the restless night she had, although again it could be caryn p intracranial infection. We will know more over the course of the next 12-24 hours.
--- NOTE | 2017-08-23 14:41 | PDOC.PN ---
- Subjective Encounter Start Date: 08/23/17 Encounter Start Time: 09:35 Subjective: awake, not in distress -: responds well to verbal stimuli -: right facial erythema has resolved this am - Objective MAR Reviewed: Yes Vital Signs & Weight: Vital Signs (12 hours) Temp Pulse Resp BP Pulse Ox 08/23/17 11:42 99.5 F 87 20 181/81 H 96 08/23/17 08:00 97.6 F 80 18 08/23/17 07:30 97.5 F L 87 16 146/94 H 94 L 08/23/17 05:02 97.6 F 80 18 174/75 H 94 L Weight Weight 178 lb 12.8 oz I&O: 08/22/17 08/23/17 08/24/17 06:59 06:59 06:59 Intake Total 1090 450 Balance 1090 450 Result Diagrams: 08/23/17 04:17 08/23/17 04:17 Phys Exam - Physical Examination HEENT: PERRLA, moist MMs Neck: no JVD, supple Respiratory: no wheezing, no rales Cardiovascular: RRR, no significant murmur Gastrointestinal: soft, non-tender, positive bowel sounds Musculoskeletal: no edema, pulses present Neurological: non-focal, moves all 4 limbs Dx/Plan (1) Facial cellulitis Code(s): L03.211 - CELLULITIS OF FACE Status: Acute (2) Glioblastoma Code(s): C71.9 - MALIGNANT NEOPLASM OF BRAIN, UNSPECIFIED Status: Chronic Comment: h/o recent resection of mass (3) DM type 2 (diabetes mellitus, type 2) Status: Chronic Qualifiers: Diabetes mellitus complication status: with unspecified complications Diabetes mellitus ferry terminal supervisor insulin use: without retirement use Qualified Code( s): E11.8 - Type 2 diabetes mellitus with unspecified complications (4) HTN (hypertension) Code(s): I10 - ESSENTIAL (PRIMARY) HYPERTENSION Status: Chronic Qualifiers: Hypertension type: essential hypertension Qualified Code(s): I10 - Essential (primary) hypertension (5) Dyslipidemia Code(s): E78.5 - HYPERLIPIDEMIA, UNSPECIFIED Status: Chronic - Plan is on vanc, ceftriaxone and flagyl -: empiric keppra for sz prophylaxis -: had a small area of suture abscess at the surgical site -: tx to icu for close monitoring, d/w Dr.Marie -: mobilize as tolerated in the room * . Review of Systems - Medications/Allergies Allergies/Adverse Reactions: Allergies Allergy/AdvReac Type Severity Reaction Status Date / Time adhesive Allergy BURNING Verified 07/25/17 13:31 RASH hydrocodone Allergy Verified 07/25/17 13:31 Penicillins Allergy ORAL Verified 07/25/17 13:31 SWELLING Medications: Current Medications Acetaminophen (Tylenol) 650 mg PO Q4H PRN PRN Reason: Headache/Fever or Pain Last Admin: 08/22/17 23:31 Dose: 650 mg Dofetilide (Tikosyn) 0.125 mg PO TID [facility] Last Admin: 08/23/17 09:12 Dose: 0.125 mg Sodium Chloride (Normal Saline 0.9%) 1,000 mls @ 70 mls/hr IV .[id number] [facility] Last Admin: 08/23/17 09:19 Dose: 1,000 mls Vancomycin HCl 1 gm/ Device 200 mls @ 200 mls/hr IVPB 1600 SOHAN Metronidazole 500 mg/ Device 100 mls @ 100 mls/hr IVPB Q8HR [facility] Cefepime HCl 2 gm/ Syringe 2.5 (ml/ Sterile Water) 12.5 mls @ 150 mls/hr SLOW IVP 0200,1400 [facility] Levetiracetam (Keppra) 250 mg PO BID [facility] Last Admin: 08/23/17 09:12 Dose: 250 mg Losartan Potassium (Cozaar) 50 mg PO BID [facility] Last Admin: 08/23/17 09:12 Dose: 50 mg Metoprolol Succinate (Toprol Xl) 50 mg PO BID [facility] Last Admin: 08/23/17 09:12 Dose: 50 mg Miscellaneous Medication (Pharmacy To Dose) 1 each IVPB PRN PRN PRN Reason: . Ondansetron HCl (Zofran) 4 mg IVP Q6H PRN PRN Reason: Nausea/Vomiting Last Admin: 08/22/17 20:38 Dose: 4 mg
[2017-08-23] MEDS: Cefepime 2 GM, Syringe 2.5 ML in Sterile Water 10 ML SLOW IVP SCH (14:52)
[2017-08-23] MEDS: metroNIDAZOLE 500 MG in Premix Bag 1 BAG IVPB SCH ×2 (15:04→22:39)
[2017-08-23] MEDS: Ondansetron HCl/PF 4 MG/2 ML Vial IVP PRN (15:36)
[2017-08-23] MEDS: Vancomycin HCl 1 GM in Premix Bag 1 BAG IVPB SCH (16:57)
--- NOTE | 2017-08-23 17:58 | CON ---
DATE OF CONSULTATION: 08/23/2017 REASON FOR CONSULTATION: CCU management. Consult encompasses 50 minutes of time, greater than 50% of the time was spent with the patient and a round the patient's floor. HISTORY OF PRESENT ILLNESS: The patient is an 86-year-old female who was recently hospitalized for a craniotomy for resection of a glioblastoma. She was found down this morning at home by her daughter . She had redness to her right cheek. She has some drainage out of her previous surgical wound. Sh carina had temperature of 101. She has been placed in the CCU for close observation and being considered for possible opening of the wound tomorrow. Her son is at the bedside. The patient has improved sin ce her time in the ER. Face is no longer red and she is more lucid. PAST MEDICAL HISTORY: 1. Craniotomy for glioblastoma resection. 2. Pacemaker placement. 3. Atrial tachycardia. 4. Hypertension. 5. Hyperlipidemia. 6. Osteoporosis. 7. Right carotid endarterectomy. 8. Cardiac ablation. ALLERGIES: HYDROCODONE, PENICILLIN. MEDICATIONS: 1. Alendronate 70 mg weekly. 2. Aspirin 81 mg daily. 3. Hydralazine 10 mg 3 times a day. 4. Losartan 50 mg twice daily. 5. Metoprolol 25 mg twice daily. 6. Zetia 10 mg daily. 7. Ranexa 500 mg twice daily. 8. Vitamin D3 daily. 9. Tikosyn 125 mcg 3 times a day. FAMILY MEDICAL HISTORY: Remarkable for cancer, strokes, and dementia. SOCIAL HISTORY: Nonsmoker, does not consume alcohol. . REVIEW OF SYSTEMS: Unobtainable secondary to the patient's altered mental status. PHYSICAL EXAMINATION: VITAL SIGNS: Temperature 99.5, pulse 87, respirations 20, O2 sat 96% on room air, blood pressure 181 /81. GENERAL: She is awake and alert and in no acute distress. HEENT: The surgical wound in the right frontal area is noted and appears to be healing okay except f or the very lateral portion where there is a scab. I cannot express any drainage. Pupils are reacti ve. Sclerae are anicteric. Oropharynx is clear. NECK: Without adenopathy, JVD, or bruits. LUNGS: Clear. CARDIAC: S1, S2 regular. ABDOMEN: Soft, nontender. EXTREMITIES: No clubbing, cyanosis, or edema. LABORATORY DATA: White blood cell count 16.4, hematocrit 34.9, platelet count 149. Sodium 135, pota ssium 3.7, chloride 105, CO2 21, BUN 14, creatinine 0.8, glucose 153. ASSESSMENT: 1. Possible cellulitis at previous surgical site. 2. Recent resection of glioblastoma. 3. Medical problems as listed above. PLAN: She is being watched closely overnight. I have reviewed the orders in the chart. She is rece iving broad spectrum IV antibiotic therapy. Dr. Camacho has been asked for his opinion, there is libby e to add from my standpoint, I will be happy to follow with you.
--- NOTE | 2017-08-23 19:47 | CON ---
DATE OF CONSULTATION: 08/23/2017 REASON FOR CONSULTATION: Possible postop wound infection following craniectomy. HISTORY OF PRESENT ILLNESS: 86-year-old patient who had a recent diagnosis of glioblastoma after a surgical procedure carried out earlier in July 2017. This was a stereotactic right frontal craniotomy with right frontal tumor resection. The operative report was reviewed. Dura was opened exposing the underlying brain and this was proceeded to a right frontal mass resection. This was hemorrhagic receiving blood supply from surrounding brain and deeper from ependymal vessels. The patient did well immediately after the procedure, went home, and was quite functional, but over the past 48 hours has developed progressively worsening sedation associated with swelling around his right periorbital region with erythema, some drainage from the lower end of the incision for the craniotomy. The patient has been admitted and started on broad -spectrum antimicrobial coverage with Flagyl, cefepime, and vancomycin. There has been marked improvement of the area of swelling and erythema. She opens her eyes. She is able to interact with examiner, recognize family members. A bit sluggish in her speech. She has a little bit of pain in the right side of her head. No sore throat, odynophagia, or dysphagia. No cough or dyspnea. No chest pain. No abdominal pain. She is voiding spontaneously. PAST MEDICAL HISTORY: Cardiomyopathy, ischemic with AICD in place; atrial fibrillation with ablation; hypertension; hyperlipidemia; and recently diagnosed glioblastoma, status post resection. MEDICATIONS AT HOME: Alendronate, aspirin, hydralazine, losartan, metoprolol, Zetia, Ranexa, vitamin D, and Tikosyn. ALLERGIES: HYDROCODONE AND PENICILLIN WITH RASH. PAST SURGICAL HISTORY: 1. Right carotid endarterectomy. 2. AICD placement. 3. Cardiac ablation. 4. Stents. FAMILY HISTORY: Noncontributory. SOCIAL HISTORY: . Never a smoker. No alcoholic beverage use. PHYSICAL EXAMINATION: VITAL SIGNS: T-max 98.6, blood pressure 180/80, pulse 87, respirations 18-20, O2 sat 96%. GENERAL: She is awake. She is a bit drowsy, arousable. She knows where she was and recognized relatives. SKIN: With the area in the periorbital region with marked improvement in the swelling noted and documented by photos by family members. At the very lower end of the craniotomy incision, there is an area of very small opening or dehiscence. I could not produce any drainage from that site. No erythema is noticeable at this time around the site. HEENT: Ocular movements appear conjugate. Oral cavity is moist, no lesions. NECK: Supple. No jugular vein distention. LUNGS: Symmetric clear breath sounds. HEART: S1, S2 regular rate. No S3, S4. ABDOMEN: Soft, not distended. No ascites. No tenderness. No organomegaly. No bladder distention. EXTREMITIES: No joint inflammatory activity. Pulses 1+ in dorsalis pedis. Cap refill is normal. She has diffuse stiffness. NEUROLOGIC: She is awake, but drowsy. Oriented times self and place. LABORATORY DATA: White cell count 14,000 and 16,000, hemoglobin 11, platelets 149. INR is 1.0. Sodium 135, creatinine 0.82. Liver profile is normal. Albumin is 4.2. Urinalysis is normal. Influenza test was negative. Blood cultures x2 are negative thus far. The patient had lumbar, thoracic, and cervical spine CT with no fractures or dislocation. CT of brain without contrast from yesterday with a 3.3 x 3.1 cm heterogeneous intraaxial lesion in right frontal region, which is probably a postop cavity. Some soft tissue swelling in periorbital region. ASSESSMENT: 1. Ischemic cardiomyopathy with automated implantable cardioverter defibrillator in place. 2. Glioblastoma, status post resection. 3. Periorbital inflammatory changes with edema, which has improved markedly after admission. 4. Concern with postoperative infection. The patient to undergo a limited I&D of the site, I believe tomorrow. In the meantime, continue current antimicrobials. Anaerobes are less likely in this circumstance. We will look in basically MRSA and gram-negative rods as the main concern. The other possibility will be an allergic reaction with angioedema in view of quick improvement. There is the possibility of a more complicated process but this is not apparent from the CT scan. MTDD
[2017-08-23] MEDS ORDERED: hydrALAZINE 20 MG/ML VIAL SLOW IVP SCH (22:45)
[2017-08-23] MEDS ORDERED: Furosemide 20 MG/2 ML VIAL SLOW IVP SCH (23:59)
[2017-08-24] MEDS: Cefepime 2 GM, Syringe 2.5 ML in Sterile Water 10 ML SLOW IVP SCH ×3 (02:17→22:09)
[2017-08-24 04:41] LABS: Band 5 % (5-11); Hemoglobin 13.2 g/dL (12.0-16.0); Lymphocytes 25 % (21-51); MDiff Complete? YES; Mean Corpuscular Hemoglobin 31.8 pg (27.0-31.0); Mean Corpuscular Volume 96.4 fl (81.0-99.0); Mean Platelet Volume 8.7 fL (7.4-10.4); Monocytes 3 % (0-10); Neutrophil 67 % (42-75); Platelet Count 164 thou/uL (130-400); RBC Distribution Width 12.2 % (11.5-14.5); Red Blood Cell (RBC) Count 4.15 mill/uL (4.20-5.40); White Blood Cell (WBC) Count 20.4 thou/uL (4.8-10.8)
[2017-08-24 04:46] LABS: Anion Gap 17 mmol/L (10-20); CRP (Inflammatory) 11.89 mg/dL (= or < 0.5); Carbon Dioxide 23 mmol/L (23-31); Chloride 97 mmol/L (98-107); Potassium 3.1 mmol/L (3.5-5.1); Sodium 134 mmol/L (136-145)
[2017-08-24] MEDS: metroNIDAZOLE 500 MG in Premix Bag 1 BAG IVPB SCH ×3 (06:19→22:09)
[2017-08-24] MEDS ORDERED: Potassium Chloride 40 MEQ in Sodium Chloride 0.9% 250 ML 250 ML IVPB SCH (07:45)
--- NOTE | 2017-08-24 07:53 | PRG ---
DATE OF SERVICE: 08/24/2017 The patient developed some rhonchi and evidence of pulmonary edema last night which responded to Lasi x. She is scheduled to go down to the OR for I&D of her wound today. PHYSICAL EXAMINATION: VITAL SIGNS: Her temperature is 98.9, pulse 92, blood pressure 130/54, 24 intake 1612, output 1665. HEENT: There is a scab on the lateral aspect of the wound, not expressing any pus at this time. Pup ils react. Sclerae icteric. Oropharynx clear. NECK: No JVD. CHEST: Fairly clear without wheezing. CARDIAC: S1 and S2 regular. ABDOMEN: Soft. EXTREMITIES: No edema. LABORATORY DATA: Sodium 134, potassium 3.1, chloride 97, CO2 23. C-reactive protein 11.8, white blo od cell count 20, hematocrit 40, platelet count 164. ASSESSMENT: 1. Possible pulmonary edema last night. 2. Wound infection. PLAN: She was gently diuresed last night with some improvement. I will go ahead and check x-ray. S he is on broad spectrum IV antibiotics. She may need supplemental oxygen. Her potassium will be rep laced.
--- NOTE | 2017-08-24 08:12 | PRG ---
DATE OF SERVICE: 08/24/2017 Ms. Borges is hospital day 2 for admission for a change in level of alertness and concern of wound dr newman. I am seeing her this morning, she continues to vacillate between alert and confused and somn olent. She has been afebrile, but her white blood cell count has gone up from 14 to 16 to 20 today. Her sed rate is mildly elevated, but her CRP is more significantly elevated. She has a small 2-3 mm area opening in the bottom of her wound. There has been some drainage. It is not frankly purulent this morning. My concern is obviously infection, I will recommend return to the OR for reopening of her wound, culture and removal of the bone to evaluate intracranially and essentially wash the wound out with the plan for placement of the bone. I am awaiting her son's arrival, so we can further disc uss this, but my recommendation is surgical debridement.
[2017-08-24] MEDS ORDERED: Lidocaine 1% PF 5 ML VIAL ONE (08:21)
[2017-08-24] MEDS ORDERED: PHENYLEPHRINE-NS 100 MCG/ML 10 ML SYRINGE ONE (08:21)
[2017-08-24] MEDS ORDERED: PROPOFOL 200 MG/20 ML VIAL ONE (08:21)
[2017-08-24] MEDS ORDERED: Ondansetron HCl/PF 4 MG/2 ML Vial ONE (08:21)
[2017-08-24] MEDS ORDERED: Glycopyrrolate 0.2 MG/ML 5 ML SYRINGE ONE (08:21)
--- NOTE | 2017-08-24 08:26 | RAD ---
FRONTAL RADIOGRAPH CHEST: DATE: 08/24/17. COMPARISON: 08/22/17. HISTORY: Hypoxemia. FINDINGS: Mild pulmonary vascular prominence. Stable dual-lead transvenous pacing device. No pneumothorax, pl eural fluid, lobar consolidation, or alveolar edema. IMPRESSION: No acute findings. POS: CINDY
[2017-08-24] MEDS: Sodium Chloride 0.9% 1,000 ML IV SCH (08:30)
[2017-08-24] MEDS ORDERED: Bacitracin Zinc Ointment 30 gm TUBE ONE (08:37)
[2017-08-24] MEDS ORDERED: Sodium Chloride 0.9% 10 ML ONE (08:37)
[2017-08-24] MEDS ORDERED: Thrombin 5000 UNITS/5 ML VIAL ONE (08:37)
[2017-08-24] MEDS ORDERED: Bupivacaine HCl 0.5%/Epinephrine 1:200,000/PF 30 ml Vial ONE (08:37)
[2017-08-24] MEDS ORDERED: Fentanyl 250 MCG/5 ML VIAL ONE (09:29)
--- NOTE | 2017-08-24 09:36 | PRG ---
DATE OF SERVICE: 08/24/2017 I spoke with Ms. Borges's a son and daughter. I let them know I am concerned that the patient has an intracranial infection and as such, I recommended a return to the operating room for opening of her right frontal craniotomy wound with cultures and irrigation and debridement. Goals indications, risk s, alternatives, complications were discussed with the family. They understand the risks and they wi sh that we proceed with surgery. DIAGNOSES: History of right frontal glioblastoma resection with concern of intracranial infection.
[2017-08-24] MEDS: Losartan 25 MG TAB PO SCH ×2 (14:15→21:00)
[2017-08-24] MEDS: Dofetilide 0.125 MG CAP PO SCH ×3 (14:16→21:00)
--- NOTE | 2017-08-24 14:21 | PDOC.PN ---
- Subjective Encounter Start Date: 08/24/17 Encounter Start Time: 07:45 Subjective: awake, not in distress -: is getting ready to go to OR - Objective MAR Reviewed: Yes Vital Signs & Weight: Vital Signs (12 hours) Temp Pulse Resp Pulse Ox 08/24/17 13:47 98 08/24/17 11:05 97.6 F 08/24/17 08:00 98.3 F 80 20 92 L Weight Weight 178 lb 12.8 oz Most Recent Monitor Data Heart Rate from ECG 80 NIBP 125/72 NIBP BP-Mean 84 Respiration from ECG 16 SpO2 99 I&O: 08/23/17 08/24/17 08/25/17 06:59 06:59 06:59 Intake Total 1090 1612 Output Total 1661 355 Balance 1090 -53 -355 Result Diagrams: 08/24/17 04:03 08/24/17 04:03 Phys Exam - Physical Examination HEENT: PERRLA, sclera anicteric Neck: no JVD, supple Respiratory: no wheezing, no rales Cardiovascular: RRR, no significant murmur Gastrointestinal: soft, non-tender, positive bowel sounds Musculoskeletal: pulses present Neurological: non-focal, moves all 4 limbs Dx/Plan (1) Facial cellulitis Code(s): L03.211 - CELLULITIS OF FACE Status: Acute (2) Glioblastoma Code(s): C71.9 - MALIGNANT NEOPLASM OF BRAIN, UNSPECIFIED Status: Chronic Comment: h/o recent resection of mass (3) DM type 2 (diabetes mellitus, type 2) Status: Chronic Qualifiers: Diabetes mellitus complication status: with unspecified complications Diabetes mellitus terminal gauger supervisor insulin use: without snf use Qualified Code( s): E11.8 - Type 2 diabetes mellitus with unspecified complications (4) HTN (hypertension) Code(s): I10 - ESSENTIAL (PRIMARY) HYPERTENSION Status: Chronic Qualifiers: Hypertension type: essential hypertension Qualified Code(s): I10 - Essential (primary) hypertension (5) Dyslipidemia Code(s): E78.5 - HYPERLIPIDEMIA, UNSPECIFIED Status: Chronic - Plan hemostable -: wbc is 20k likely due to margination -: got a dose of lasix overnight for congestion? -: is going to OR for debridement -: is on cefepime, vanc, flagyl. * . Is also on Tikosyn, toprol, cozaar and keppra for seizure prophylaxis. Review of Systems - Medications/Allergies Allergies/Adverse Reactions: Allergies Allergy/AdvReac Type Severity Reaction Status Date / Time adhesive Allergy BURNING Verified 07/25/17 13:31 RASH hydrocodone Allergy Verified 07/25/17 13:31 Penicillins Allergy ORAL Verified 07/25/17 13:31 SWELLING Medications: Current Medications Acetaminophen (Tylenol) 650 mg PO Q4H PRN PRN Reason: Headache/Fever or Pain Last Admin: 08/22/17 23:31 Dose: 650 mg Dofetilide (Tikosyn) 0.125 mg PO TID [facility] Last Admin: 08/24/17 14:16 Dose: Not Given Vancomycin HCl 1 gm/ Device 200 mls @ 200 mls/hr IVPB 1600 SOHAN Last Admin: 08/23/17 16:57 Dose: 200 mls Metronidazole 500 mg/ Device 100 mls @ 100 mls/hr IVPB Q8HR [facility] Last Admin: 08/24/17 14:18 Dose: 100 mls Cefepime HCl 2 gm/ Syringe 2.5 (ml/ Sterile Water) 12.5 mls @ 150 mls/hr SLOW IVP 0200,1400 [facility] Last Admin: 08/24/17 14:18 Dose: 12.5 mls Levetiracetam 250 mg/ Sodium (Chloride) 102.5 mls @ 205 mls/hr IVPB BID [facility] Losartan Potassium (Cozaar) 50 mg PO BID [facility] Last Admin: 08/24/17 14:15 Dose: Not Given Metoprolol Succinate (Toprol Xl) 50 mg PO BID [facility] Last Admin: 08/24/17 14:15 Dose: Not Given Miscellaneous Medication (Pharmacy To Dose) 1 each IVPB PRN PRN PRN Reason: . Ondansetron HCl (Zofran) 4 mg IVP Q6H PRN PRN Reason: Nausea/Vomiting Last Admin: 08/23/17 15:36 Dose: 4 mg
[2017-08-24] MEDS: levETIRAcetam 500 MG TAB PO SCH (14:46)
[2017-08-24] MEDS: Vancomycin HCl 1 GM in Premix Bag 1 BAG IVPB SCH (16:15)
--- NOTE | 2017-08-24 17:52 | OP ---
SURGEON: Winston Marie M.D. KITCHEN HELPER: None. PREPROCEDURE DIAGNOSIS: Concern of right frontal craniotomy infection following glioblastoma resecti on. POSTPROCEDURE DIAGNOSIS: Concern of right frontal craniotomy infection following glioblastoma resect ion. PROCEDURES: Reopening of right frontal craniotomy wound with intraoperative cultures, irrigation and debridement of infection. PROCEDURE: After informed consent was obtained from the patient's family, the patient was brought to OR 503. Proper patient pause and identification was carried out and the patient was placed in excel lent general endotracheal anesthesia. All appropriate points were padded. The right frontal region was identified. The wound is healed well except for a 3 mm region in the inferior portion of the wou nd that was red and had purulent drainage. As such, hair was clipped in this region and the area suzie rilely cleansed, prepared, and draped. Proper patient pause and identification was again carried out . The wound was then opened with a combination of sharp, monopolar and blunt dissection, and purulen t material was identified in the inferior limb of the wound. This was cultured. We then evaluated t he bone flap. The titanium plates and screws remained well fixated into the bone. They were removed and a small amount of purulent material was identified underneath the bone flap just deep to where i t was superficially. There was some CSF egress end of the wound and I suspect infection. It began t o spread into the CSF space with some appearance of early cerebritis of the right frontal region. I explored into the resection cavity and found no evidence of purulent material in the resection cavity . Copious irrigation occurred throughout with bacitracin and normal saline irrigation. The bone was brought to the back table along with the titanium plates and screws and scrubbed and placed in Betad ine and scrubbed in Betadine and then irrigated in bacitracin. I then affixed back on to the skull a nd there was no evidence of any further purulent material. The wound was then closed in anatomic lay ers. The patient then emerged from anesthesia.
[2017-08-24] MEDS ORDERED: Cefepime 2 GM in Sodium Chloride 0.9% 100 ML IVPB SCH (22:00)
--- NOTE | 2017-08-25 00:54 | PRG ---
DATE OF SERVICE: 08/24/2017 SUBJECTIVE: Ms. Borges had the surgical procedure with Dr. Marie. Dr. Marie found some evidence o f inflammatory changes close to the cortical areas under the bone flap and cultures were submitted. She is back in the unit. She is awake and shivering. No ocular movements are conjugate. She has no periorbital edema any longer. OBJECTIVE: VITAL SIGNS: Have been normal. O2 sats are good. HEENT: Pupils are equal and reactive. LUNGS: Clear. HEART: S1, S2, regular rate. ABDOMEN: No abdominal tenderness, no distention. She has a Ruiz catheter at this time. LABORATORY DATA: White cell count is at 20.4, hemoglobin 13, platelets 164. Creatinine 0.82. Micr obiology with pending cultures from the site. ASSESSMENT AND DISCUSSION: Ischemic cardiomyopathy, glioblastoma, status post resection, and c oncern for postop infection. It looks like there is now the evidence of a deeper infectious process. We will increase the dose of cefepime to 2 grams q.8 hours and continue vancomycin. Wait on cultur e results. PICC line placement and eventual discharge and treat for protracted period of time.
[2017-08-25 04:34] LABS: #Lymphocytes 1.4 thou/uL (1.20-3.40); #Monocytes 1.7 thou/uL (0.11-0.59); #Neutrophils 13.8 thou/uL (1.40-6.50); %Basophils 0.1 % (0.0-1.0); %Eosinophils 0.2 % (0.0-10.0); %Lymphocytes 8.4 % (21.0-51.0); %Monocytes 10.1 % (0.0-10.0); %Neutrophils 81.2 % (42.0-75.0); Hemoglobin 11.5 g/dL (12.0-16.0); Mean Corpuscular HGB CONC 34.1 g/dL (32.0-36.0); Mean Corpuscular Hemoglobin 33.3 pg (27.0-31.0); Mean Corpuscular Volume 97.5 fl (81.0-99.0); Mean Platelet Volume 9.1 fL (7.4-10.4); Platelet Count 184 thou/uL (130-400); RBC Distribution Width 12.1 % (11.5-14.5); Red Blood Cell (RBC) Count 3.44 mill/uL (4.20-5.40)
[2017-08-25 05:08] LABS: Anion Gap 17 mmol/L (10-20); BUN (Urea Nitrogen) 15 mg/dL (9.8-20.1); Calc. Creatinine Clearance 64 mL/min (70-130); Calcium 8.9 mg/dL (7.8-10.44); Carbon Dioxide 20 mmol/L (23-31); Chloride 104 mmol/L (98-107); Estimated GFR-MDRD 69; Glucose 157 mg/dL (83-110); Sodium 138 mmol/L (136-145)
[2017-08-25] MEDS ORDERED: Acetaminophen 1,000 MG in Premix Bag 1 BAG IVPB SCH (05:45)
[2017-08-25] MEDS: metroNIDAZOLE 500 MG in Premix Bag 1 BAG IVPB SCH ×3 (05:59→21:14)
[2017-08-25] MEDS: Cefepime 2 GM, Syringe 2.5 ML in Sterile Water 10 ML SLOW IVP SCH ×3 (05:59→21:14)
--- NOTE | 2017-08-25 09:38 | PRG ---
DATE OF SERVICE: 08/25/2017 SERVICE: Pulmonary Medicine. INTERVAL HISTORY: The patient is doing a little better today based on what nursing is telling me. This is my first day to visit with her. However, apparently her mentation is much better. She is able to communicate a little easier. She is able to indicate yes and no appropriately. She is following some simple commands, but still remains a little bit somnolent. She denies any current fevers, chills, nausea, vomiting or chest discomfort. There were no significant overnight events. PHYSICAL EXAMINATION: VITAL SIGNS: Afebrile, pulse 80, blood pressure 143/63, respirations 21, saturation 93% on room air. GENERAL: The patient is somnolent, but appropriate. She is CAM negative. She is in no apparent distress. HEENT: Normocephalic, atraumatic. Sclerae are white, conjunctivae pink. Oral mucosa is moist without lesions. Head is wrapped. LUNGS: Decent air entry. No rhonchi, wheezing or crackles are present. There is no prolonged expiratory phase. HEART: Normal rate, regular. ABDOMEN: Soft, nontender, and nondistended. Bowel sounds are positive. MUSCULOSKELETAL: No cyanosis or clubbing. There is no pitting in the bilateral lower extremities. LABORATORY DATA: WBC 17.0 and down trending. Hemoglobin 11.5, platelets 184, 000. INR 1.0. Sodium 138, potassium 3.0. Basic metabolic profile is otherwise unremarkable. CRP is elevated at 11.89. Urinalysis is unremarkable. Influenza A and B is negative. Blood cultures x2 are unremarkable. Cranium wound was subjected to bacterial and anaerobic cultures, but are currently negative. ASSESSMENT: 1. Encephalitis. 2. Recent craniotomy for resection of glioblastoma multiforme with a repeat craniotomy and washout. 3. Type 2 diabetes mellitus. DISCUSSION AND PLAN: The patient is doing just fine from a neurologic standpoint. She is moving in the right direction. We will continue to give her time to improve. Nutrition and hydration are issues. The patient has a very poor p.o. and cannot tolerate anything at this point. We are going to work on mobilizing her and getting her into a chair twice daily. In that position, we will subject her to a swallow evaluation. If she can swallow, we will feed her. If not, we will repeat tomorrow morning and if she fails swallow , a Dobbhoff tube will be placed for initiation of nutrition and hydration. In the meantime, we will start up some half normal saline at a maintenance rate. Potassium will be replaced today and we will check magnesium and phosphorus tomorrow morning. Pulmonary Critical Care will continue to follow while the patient remains in this location. If she can swallow and is easy to mobilize, we will consider getting her out, but she would probably require a sitter at this point on the floor. ANGEL
[2017-08-25] MEDS: Dofetilide 0.125 MG CAP PO SCH ×3 (10:19→21:13)
[2017-08-25] MEDS: Losartan 25 MG TAB PO SCH ×2 (10:19→21:13)
[2017-08-25] MEDS: Potassium Chloride 40 MEQ in Sodium Chloride 0.9% 250 ML 250 ML IVPB SCH ×2 (10:26→15:24)
--- NOTE | 2017-08-25 13:25 | EKG ---
Test Reason : Blood Pressure : / mmHG Vent. Rate : 080 BPM Atrial Rate : 080 BPM P-R Int : 136 ms QRS Dur : 184 ms QT Int : 470 ms P-R-T Axes : -03 -69 083 degrees QTc Int : 542 ms AV sequential or dual chamber electronic pacemaker Confirmed by ARACELI SINGH, MARYANN ([id number]), editor map JAY GONZALEZ ([id number]) on 08/25/2017 1:25:09 PM Referred By: Confirmed By:MARYANN CHARLES MD
[2017-08-25] MEDS: Vancomycin HCl 1 GM in Premix Bag 1 BAG IVPB SCH (15:24)
--- NOTE | 2017-08-25 15:39 | PDOC.PN ---
- Subjective Encounter Start Date: 08/25/17 Encounter Start Time: 15:37 Subjective: sitting up in chair.daughter at bedisde -: pt somnolent & non conversational largely -: responds w yes/no to most Q but not follows simple commands - Objective MAR Reviewed: Yes Vital Signs & Weight: Vital Signs (12 hours) Temp Pulse Resp Pulse Ox 08/25/17 12:00 98.8 F 08/25/17 08:00 98.2 F 84 22 H 100 08/25/17 06:56 93 L 08/25/17 04:00 98.9 F Weight Weight 178 lb 12.8 oz Most Recent Monitor Data Heart Rate from ECG 100 NIBP 167/79 NIBP BP-Mean 105 Respiration from ECG 19 SpO2 99 I&O: 08/24/17 08/25/17 08/26/17 06:59 06:59 06:59 Intake Total 1612 652 300 Output Total 1665 1268 795 Balance -53 -616 -495 Result Diagrams: 08/25/17 03:27 08/25/17 03:27 Additional Labs: Microbiology 08/22/17 14:19 Nasopharyngeal swab Influenza Types A,B Direct EIA - Final 08/24/17 10:05 Cranium - Wound Bacterial Culture - Preliminary 08/24/17 10:05 Cranium - Wound Staphylococcus aureus 08/24/17 10:05 Cranium - Wound Bacterial Culture - Preliminary 08/22/17 16:22 Venous blood - Right Arm Blood Culture - Preliminary NO GROWTH AT 48 HOURS 08/22/17 16:13 Venous blood - Right Hand Blood Culture - Preliminary NO GROWTH AT 48 HOURS Phys Exam - Physical Examination Constitutional: NAD opens eyes & responds w yes/no.shaking all over episodically HEENT: PERRLA, moist MMs, sclera anicteric, oral pharynx no lesions Neck: no nodes, no JVD, supple, full ROM Respiratory: no wheezing, no rales, no rhonchi, clear to auscultation bilateral Cardiovascular: RRR, no significant murmur Gastrointestinal: soft, non-tender, no distention, positive bowel sounds Musculoskeletal: no edema, pulses present Neurological: non-focal, normal sensation, moves all 4 limbs Deviation from normal: oriented to self Skin: no rash Dx/Plan (1) Post Surgical Infection Status: Acute Comment: s/p washout 08/24/17 (2) Facial cellulitis Code(s): L03.211 - CELLULITIS OF FACE Status: Acute (3) DM type 2 (diabetes mellitus, type 2) Status: Chronic Qualifiers: Diabetes mellitus complication status: with unspecified complications Diabetes mellitus skilled nursing insulin use: without skilled nursing use Qualified Code( s): E11.8 - Type 2 diabetes mellitus with unspecified complications (4) Dyslipidemia Code(s): E78.5 - HYPERLIPIDEMIA, UNSPECIFIED Status: Chronic (5) Glioblastoma Code(s): C71.9 - MALIGNANT NEOPLASM OF BRAIN, UNSPECIFIED Status: Chronic Comment: h/o recent resection of mass (6) HTN (hypertension) Code(s): I10 - ESSENTIAL (PRIMARY) HYPERTENSION Status: Chronic Qualifiers: Hypertension type: essential hypertension Qualified Code(s): I10 - Essential (primary) hypertension (7) Brain mass Code(s): G93.9 - DISORDER OF BRAIN, UNSPECIFIED Status: Acute - Plan continue antibiotics, PT/OT, out of bed/ambulate, DVT proph w/SCDs cont empiric ABx.NS & ID following.hemodynamically stable -: family reports slight improvement in metation.increased activity. -: repalce & recheck potassium.WBC treanding down.monitor. -: cont IV keppra till able to take PO or Dobhoff placed.high risk of aspirati -: will need PICC placed for long term care pharmacist IV ABx per ID * .cont supportive care. * am labs * home meds as tolerated ,as below Review of Systems - Review of Systems Other: unable to obtain due to aphasia,confusion - Medications/Allergies Allergies/Adverse Reactions: Allergies Allergy/AdvReac Type Severity Reaction Status Date / Time adhesive Allergy BURNING Verified 07/25/17 13:31 RASH hydrocodone Allergy Verified 07/25/17 13:31 Penicillins Allergy ORAL Verified 07/25/17 13:31 SWELLING Medications: Current Medications Acetaminophen (Tylenol) 650 mg PO Q4H PRN PRN Reason: Headache/Fever or Pain Last Admin: 08/22/17 23:31 Dose: 650 mg Dofetilide (Tikosyn) 0.125 mg PO TID SOHAN Last Admin: 08/25/17 10:19 Dose: 0.125 mg Vancomycin HCl 1 gm/ Device 200 mls @ 200 mls/hr IVPB 1600 SOHAN Last Admin: 08/25/17 15:24 Dose: 200 mls Metronidazole 500 mg/ Device 100 mls @ 100 mls/hr IVPB Q8HR [facility] Last Admin: 08/25/17 14:40 Dose: 100 mls Levetiracetam 250 mg/ Sodium (Chloride) 102.5 mls @ 205 mls/hr IVPB BID [facility] Last Admin: 08/25/17 10:25 Dose: 102.5 mls Cefepime HCl 2 gm/ Syringe 2.5 (ml/ Sterile Water) 12.5 mls @ 150 mls/hr SLOW IVP Q8HR [facility] Last Admin: 08/25/17 14:40 Dose: 12.5 mls Potassium Chloride 40 meq/ (Sodium Chloride) 270 mls @ 67.5 mls/hr IVPB Q4H [facility] Stop: 08/25/17 17:59 Last Admin: 08/25/17 15:24 Dose: 270 mls Losartan Potassium (Cozaar) 50 mg PO BID [facility] Last Admin: 08/25/17 10:19 Dose: 50 mg Metoprolol Succinate (Toprol Xl) 50 mg PO BID [facility] Last Admin: 08/25/17 10:19 Dose: 50 mg Miscellaneous Medication (Pharmacy To Dose) 1 each IVPB PRN PRN PRN Reason: . Ondansetron HCl (Zofran) 4 mg IVP Q6H PRN PRN Reason: Nausea/Vomiting Last Admin: 08/23/17 15:36 Dose: 4 mg
[2017-08-25 16:49] LABS: Vancomycin, Trough 6.7 ug/mL
[2017-08-26 03:31] LABS: #Lymphocytes 1.6 thou/uL (1.20-3.40); #Monocytes 1.6 thou/uL (0.11-0.59); #Neutrophils 13.2 thou/uL (1.40-6.50); %Eosinophils 0.3 % (0.0-10.0); %Lymphocytes 9.6 % (21.0-51.0); %Monocytes 9.6 % (0.0-10.0); %Neutrophils 80.5 % (42.0-75.0); Hemoglobin 12.3 g/dL (12.0-16.0); Mean Corpuscular HGB CONC 32.5 g/dL (32.0-36.0); Mean Corpuscular Hemoglobin 31.5 pg (27.0-31.0); Mean Corpuscular Volume 97.2 fl (81.0-99.0); Mean Platelet Volume 8.9 fL (7.4-10.4); Platelet Count 139 thou/uL (130-400); RBC Distribution Width 12.5 % (11.5-14.5); White Blood Cell (WBC) Count 16.4 thou/uL (4.8-10.8)
[2017-08-26 03:41] LABS: Anion Gap 17 mmol/L (10-20); BUN (Urea Nitrogen) 13 mg/dL (9.8-20.1); Calc. Creatinine Clearance 72 mL/min (70-130); Calcium 8.9 mg/dL (7.8-10.44); Carbon Dioxide 18 mmol/L (23-31); Chloride 105 mmol/L (98-107); Estimated GFR-MDRD 79; Glucose 162 mg/dL (83-110); Potassium 3.3 mmol/L (3.5-5.1); Sodium 137 mmol/L (136-145)
[2017-08-26 03:51] LABS: Phosphorus Less than 1.0 mg/dL (2.3-4.7)
[2017-08-26] MEDS ORDERED: Vancomycin HCl 1 GM in Premix Bag 1 BAG IVPB SCH (04:00)
[2017-08-26] MEDS ORDERED: CCU ELECTROLYTE REPLACEMENT PROTOCOL FS PRN (04:19)
[2017-08-26] MEDS ORDERED: Magnesium Oxide 400 MG TAB PO PRN ×2 (04:19)
[2017-08-26] MEDS ORDERED: Potassium Chloride 20 MEQ TAB PO PRN (04:19)
[2017-08-26] MEDS ORDERED: Potassium Chloride 40 MEQ in Sodium Chloride 0.9% 250 ML 250 ML IVPB PRN (04:19)
[2017-08-26] MEDS ORDERED: Magnesium 2 GM/NS 0.9% 100 ML 2 GM in Premix Bag 1 BAG IVPB PRN (04:19)
[2017-08-26] MEDS ORDERED: Potassium Chloride 40 MEQ in Premix Bag 1 BAG IVPB PRN (04:19)
[2017-08-26] MEDS ORDERED: Potassium Phosphate 9 MMOL in Sodium Chloride 0.9% 100 ML IVPB PRN (04:19)
[2017-08-26] MEDS ORDERED: Potassium Phosphate 15 MMOL in Sodium Chloride 0.9% 250 ML 250 ML IV PRN (04:19)
[2017-08-26] MEDS ORDERED: Potassium Phosphate 12 MMOL in Sodium Chloride 0.9% 250 ML 250 ML IV PRN (04:19)
[2017-08-26] MEDS: hydrALAZINE 20 MG/ML VIAL SLOW IVP PRN ×3 (04:39→21:32)
[2017-08-26] MEDS: metroNIDAZOLE 500 MG in Premix Bag 1 BAG IVPB SCH ×3 (06:05→21:32)
[2017-08-26] MEDS: Cefepime 2 GM, Syringe 2.5 ML in Sterile Water 10 ML SLOW IVP SCH ×3 (06:06→21:32)
[2017-08-26] MEDS: Losartan 25 MG TAB PO SCH ×2 (10:40→21:33)
[2017-08-26] MEDS: Dofetilide 0.125 MG CAP PO SCH ×3 (10:40→21:33)
[2017-08-26] MEDS ORDERED: Potassium Chloride 40 MEQ in Sodium Chloride 0.9% 250 ML 250 ML IVPB SCH (11:30)
[2017-08-26] MEDS ORDERED: Potassium Phosphate 30 MMOL in Sodium Chloride 0.9% 500 ML IVPB SCH (11:30)
--- NOTE | 2017-08-26 12:02 | CT ---
CT BRAIN NONCONTRAST: DATE: 08/26/17. TIME: 10:17 a.m. HISTORY: An 86-year-old female with interval change in mental status. COMPARISON: 08/22/17. FINDINGS: Again noted are the recent right upper frontal craniotomy changes. There is a new finding of a 3.5 x 1.5 x 2.5 cm collection of gas and other material, just deep to the craniotomy flap, which mildly in dents the right upper frontal lobe parenchyma. Deep to that, again noted is the intraaxial lesion in the right frontal lobe measuring approximately 2.5 x 2.5 cm, consisting of low, fluid attenuation ce nter, surrounded by a rim of hyperdensity consistent with hemorrhage, surrounded by vasogenic edema. There is another new finding of a new 1 x 0.6 cm pocket of intraaxial gas at the anterior edge of th is brain parenchymal lesion. Again noted are the somewhat severe chronic ischemic white matter nieto es diffusely. No obstructive hydrocephalus. No midline shift. IMPRESSION: 1. Deep to the craniotomy, there is a new pocket of extraaxial gas. Furthermore, there is another n ew pocket of intraaxial gas in the right frontal lobe abutting the postsurgical cavity in the right f rontal lobe. Telephone conversation with neurosurgery VISHNU Ford revealed that the patient had a washout deep to the craniotomy after the 08/22/17 CT, which would explain the new intracrania l gas. CODE CR JN R POS: [facility]
[2017-08-26] MEDS: Linezolid 600 MG in Premix Bag 1 BAG IVPB SCH (13:40)
--- NOTE | 2017-08-26 14:10 | PDOC.PN ---
- Subjective Encounter Start Date: 08/26/17 Encounter Start Time: 14:07 Subjective: nursing report mentation status changes.pt awake but not responding/ talking - Objective MAR Reviewed: Yes Vital Signs & Weight: Vital Signs (12 hours) Temp Pulse Resp BP Pulse Ox 08/26/17 10:01 80 162/83 H 08/26/17 08:00 98.8 F 80 22 H 96 08/26/17 07:00 98.8 F 08/26/17 04:39 80 172/85 H 08/26/17 04:00 98.8 F Weight Weight 178 lb 12.8 oz Most Recent Monitor Data Heart Rate from ECG 80 NIBP 161/82 NIBP BP-Mean 98 Respiration from ECG 26 SpO2 97 I&O: 08/25/17 08/26/17 08/27/17 06:59 06:59 06:59 Intake Total 652 600 0 Output Total 1268 2585 405 [facility] -616 -1985 -405 Result Diagrams: 08/26/17 03:21 08/26/17 03:21 Additional Labs: Microbiology 08/22/17 14:19 Nasopharyngeal swab Influenza Types A,B Direct EIA - Final 08/24/17 10:05 Cranium - Wound Bacterial Culture - Preliminary 08/24/17 10:05 Cranium - Wound Methicillin resistant S.aureus 08/22/17 16:22 Venous blood - Right Arm Blood Culture - Preliminary NO GROWTH AT 48 HOURS 08/22/17 16:13 Venous blood - Right Hand Blood Culture - Preliminary NO GROWTH AT 48 HOURS Phys Exam - Physical Examination Constitutional: NAD awake ,does not respond to commands HEENT: PERRLA, moist MMs, sclera anicteric, oral pharynx no lesions cranial surgical site looks clean Neck: no nodes, no JVD, supple, full ROM Respiratory: no wheezing, no rales, no rhonchi, clear to auscultation bilateral Cardiovascular: RRR, no significant murmur Gastrointestinal: soft, non-tender, no distention, positive bowel sounds Musculoskeletal: no edema, pulses present Neurological: moves all 4 limbs eyes open & breifly will look at name calling Skin: no rash Dx/Plan (1) Encephalopathy Code(s): G93.40 - ENCEPHALOPATHY, UNSPECIFIED Status: Acute (2) Post Surgical Infection Status: Acute Comment: s/p washout 08/24/17 (3) Facial cellulitis Code(s): L03.211 - CELLULITIS OF FACE Status: Acute (4) DM type 2 (diabetes mellitus, type 2) Status: Chronic Qualifiers: Diabetes mellitus complication status: with unspecified complications Diabetes mellitus keno terminal operator insulin use: without snf use Qualified Code( s): E11.8 - Type 2 diabetes mellitus with unspecified complications (5) Dyslipidemia Code(s): E78.5 - HYPERLIPIDEMIA, UNSPECIFIED Status: Chronic (6) Glioblastoma Code(s): C71.9 - MALIGNANT NEOPLASM OF BRAIN, UNSPECIFIED Status: Chronic Comment: h/o recent resection of mass (7) HTN (hypertension) Code(s): I10 - ESSENTIAL (PRIMARY) HYPERTENSION Status: Chronic Qualifiers: Hypertension type: essential hypertension Qualified Code(s): I10 - Essential (primary) hypertension (8) Brain mass Code(s): G93.9 - DISORDER OF BRAIN, UNSPECIFIED Status: Acute - Plan continue antibiotics, PT/OT, rn social work, out of bed/ambulate, DVT proph w/ SCDs CT scan repeted per NS-follow recs.supportiv ecare -: empiric ABx.CCU care -: replace & recheck lytes.appreciate Pulm input -: guarded prognosis w post-op craianl site infection.MRSA -: ASA,plavix on hold.cont IV keppra for seizure prophylaxis. * .cont faridaBB.restart Ranexa. may need Dobhoff and /or TPN if remains confused w poor po intake capacity * am labs Review of Systems - Review of Systems Other: can't be obtained d/t encephalopathy - Medications/Allergies Allergies/Adverse Reactions: Allergies Allergy/AdvReac Type Severity Reaction Status Date / Time adhesive Allergy BURNING Verified 07/25/17 13:31 RASH hydrocodone Allergy Verified 07/25/17 13:31 Penicillins Allergy ORAL Verified 07/25/17 13:31 SWELLING Medications: Current Medications Acetaminophen (Tylenol) 650 mg PO Q4H PRN PRN Reason: Headache/Fever or Pain Last Admin: 08/22/17 23:31 Dose: 650 mg Dofetilide (Tikosyn) 0.125 mg PO TID SOHAN Last Admin: 08/26/17 10:40 Dose: Not Given Hydralazine HCl (Apresoline) 5 mg SLOW IVP Q30MIN PRN PRN Reason: SBP GREATER THAN 160 Last Admin: 08/26/17 10:01 Dose: 5 mg Metronidazole 500 mg/ Device 100 mls @ 100 mls/hr IVPB Q8HR [facility] Last Admin: 08/26/17 13:40 Dose: 100 mls Levetiracetam 250 mg/ Sodium (Chloride) 102.5 mls @ 205 mls/hr IVPB BID [facility] Last Admin: 08/26/17 09:59 Dose: 102.5 mls Cefepime HCl 2 gm/ Syringe 2.5 (ml/ Sterile Water) 12.5 mls @ 150 mls/hr SLOW IVP Q8HR [facility] Last Admin: 08/26/17 06:06 Dose: 12.5 mls Potassium Chloride 40 meq/ (Sodium Chloride) 270 mls @ 67.5 mls/hr IVPB 1130 [facility] Stop: 08/26/17 15:29 Last Admin: 08/26/17 11:56 Dose: 270 mls Potassium Phosphate 30 mmol/ (Sodium Chloride) 510 mls @ 83.3 mls/hr IVPB 1130 [facility] Stop: 08/26/17 17:38 Last Admin: 08/26/17 11:55 Dose: 510 mls Linezolid 600 mg/ Device 300 mls @ 150 mls/hr IVPB 0100,1300 [facility] Last Admin: 08/26/17 13:40 Dose: 300 mls Losartan Potassium (Cozaar) 50 mg PO BID [facility] Last Admin: 08/26/17 10:40 Dose: Not Given Metoprolol Succinate (Toprol Xl) 50 mg PO BID [facility] Last Admin: 08/26/17 10:41 Dose: Not Given Miscellaneous Medication (Pharmacy To Dose) 1 each IVPB PRN PRN PRN Reason: . Ccu Electrolyte (Replacement Protocol) 0 each FS PRN PRN PRN Reason: FOR ELECTROLYTE REPLACEMENT Ondansetron HCl (Zofran) 4 mg IVP Q6H PRN PRN Reason: Nausea/Vomiting Last Admin: 08/23/17 15:36 Dose: 4 mg Ranolazine (Ranexa) 500 mg PO BID [facility] Last Admin: 08/26/17 10:41 Dose: Not Given
--- NOTE | 2017-08-26 14:15 | PRG ---
DATE OF SERVICE: 08/26/2017 SERVICE: Pulmonary Medicine. INTERVAL HISTORY: The patient is doing fine from a respiratory standpoint. She remains on room air. She is awake and tense. Outside of that, she does not follow any commands. She is seen to move al l 4 extremities. She withdraws from noxious stimuli in all 4 extremities and spontaneously moves her right upper and lower extremities. Her left upper and lower extremity she can move, but she does no t do it without stimulation. PHYSICAL EXAMINATION: VITAL SIGNS: Afebrile, pulse 80, blood pressure 163/82, respirations 22 and saturation 96% on room a ir. GENERAL: The patient is awake and alert. She is in no apparent distress, but not following any comm ands. HEENT: Normocephalic and atraumatic. Sclerae are white, conjunctivae pink. Oral and nasal mucosa i s moist without lesions. LUNGS: Decent air entry. There is no prolonged expiratory phase, wheezing, rhonchi or crackles. HEART: Normal rate and regular. ABDOMEN: Soft, nontender and nondistended. Bowel sounds are positive. MUSCULOSKELETAL: No cyanosis or clubbing. There is no pitting in the bilateral lower extremities. NEUROLOGIC: See above. LABORATORY DATA: WBC 16.4 and down trending, hemoglobin 12.3 and platelets 139. Basic metabolic pro file is essentially unremarkable except for potassium of 3.3. Bicarbonate 18, anion gap remains stab le at 17. Blood sugar 162. Phosphorus less than the assay limit of 1.0. Magnesium 2.0. Cranium wo und is growing MRSA, which is sensitive to vancomycin. Blood cultures x2 and urine cultures are othe rwise negative. IMAGING DATA: CT of the brain demonstrates a flap that has been replaced. There is pneumocephalus p resent. There is a little bit of blood in the brain, but I certainly do not see any significant midl ine shift or hydrocephalus present. Official read is currently pending. ASSESSMENT: 1. Encephalitis secondary to methicillin-resistant Staphylococcus aureus. 2. Recent craniotomy for resection of glioblastoma multiforme with repeat craniotomy and washout. 3. Type 2 diabetes mellitus. DISCUSSION AND PLAN: We will replace the potassium and phosphorus today. Accu-Cheks will be obtaine d. If she does not eat by tomorrow, tube feeds may need to be considered. The patient is much more awake and alert today, though she is not following any commands. Yesterday, she was more somnolent, but was following some simple commands with appropriate stimulation. I do not see anything on the CT scan that is too terribly alarming, though official read from Radiology, and reviewed by Neurosurger y is still pending. Pulmonary Critical Care will continue to follow as she will certainly remain in this location.
[2017-08-27] MEDS: hydrALAZINE 20 MG/ML VIAL SLOW IVP PRN ×3 (00:23→14:11)
[2017-08-27] MEDS: Linezolid 600 MG in Premix Bag 1 BAG IVPB SCH ×2 (00:24→13:56)
[2017-08-27 04:59] LABS: #Eosinphils 0.1 thou/uL (0.0-0.7); #Lymphocytes 1.9 thou/uL (1.20-3.40); #Monocytes 1.4 thou/uL (0.11-0.59); #Neutrophils 11.6 thou/uL (1.40-6.50); %Basophils 0.1 % (0.0-1.0); %Eosinophils 0.7 % (0.0-10.0); %Lymphocytes 12.8 % (21.0-51.0); %Monocytes 9.3 % (0.0-10.0); %Neutrophils 77.1 % (42.0-75.0); Hemoglobin 12.3 g/dL (12.0-16.0); Mean Corpuscular HGB CONC 34.1 g/dL (32.0-36.0); Mean Corpuscular Hemoglobin 32.4 pg (27.0-31.0); Mean Corpuscular Volume 94.8 fl (81.0-99.0); Mean Platelet Volume 8.1 fL (7.4-10.4); Platelet Count 220 thou/uL (130-400); RBC Distribution Width 12.7 % (11.5-14.5); Red Blood Cell (RBC) Count 3.81 mill/uL (4.20-5.40)
[2017-08-27] MEDS: Cefepime 2 GM, Syringe 2.5 ML in Sterile Water 10 ML SLOW IVP SCH ×3 (05:23→21:48)
[2017-08-27] MEDS: metroNIDAZOLE 500 MG in Premix Bag 1 BAG IVPB SCH ×3 (05:23→21:49)
[2017-08-27 05:30] LABS: Anion Gap 14 mmol/L (10-20); BUN (Urea Nitrogen) 17 mg/dL (9.8-20.1); Calc. Creatinine Clearance 67 mL/min (70-130); Calcium 8.5 mg/dL (7.8-10.44); Carbon Dioxide 19 mmol/L (23-31); Chloride 106 mmol/L (98-107); Estimated GFR-MDRD 72; Glucose 165 mg/dL (83-110); Magnesium 1.9 mg/dL (1.6-2.6); Phosphorus 1.4 mg/dL (2.3-4.7); Sodium 136 mmol/L (136-145)
[2017-08-27] MEDS ORDERED: Potassium Phosphate 30 MMOL in Sodium Chloride 0.9% 500 ML IVPB SCH (05:45)
--- NOTE | 2017-08-27 06:28 | PRG ---
DATE OF SERVICE: 08/26/2017 Ms. Borges has developed some worsening of her confusional state. She is able to establish eye conta ct, but does not answer questions or follow commands. PHYSICAL EXAMINATION: VITAL SIGNS; The temperature has been within normal limits.: T-max 99.1, blood pressure 120/40, pul se 80, respirations 15. HEENT: Ocular movements are conjugate. The craniotomy site appears dry without inflammatory changes or drainage. Oral cavity is moist. LUNGS: With symmetric clear breath sounds. CARDIOVASCULAR: S1, S2, regular rate. ABDOMEN: Soft and not distended. NEURO: She is able to move extremities, but has a hard time following commands. LABORATORY: White cell count is at 15,000, hemoglobin 12, platelets 220. Sodium 136, creatinine 0.7 6. Microbiology demonstrated methicillin-resistant Staphylococcus aureus from the cranium wound. Th e patient had a repeat CT scan which showed postoperative changes. ASSESSMENT AND DISCUSSION: Ischemic cardiomyopathy and recently diagnosed glioblastoma, status post resection with evidence now of postop infection secondary to MRSA including the possibility of cerebr itis. 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 Continue cefepime until final results of cultures. Will require treatment for a protracted period of time.
--- NOTE | 2017-08-27 08:00 | PRG ---
DATE OF SERVICE: 08/27/2017 The patient remains in the CCU. She is nonverbal, but does open her eyes. She will not follow any c ommands specifically. PHYSICAL EXAMINATION: VITAL SIGNS: Temperature 97.8, pulse 80, respirations 17, O2 sat 97%, blood pressure 110/54, 24 hour intake 1660, output 1075. HEENT: She has a stitched up wound over her right frontal area which appears to be healing well. Pu pils are reactive. Oropharynx clear. NECK: No JVD. LUNGS: Clear. CARDIAC: S1 and S2 regular. ABDOMEN: Soft, nontender. EXTREMITIES: No clubbing, cyanosis or edema. LABORATORY DATA: White blood cell count 15, hematocrit 36.1, platelet count 220. Sodium 136, potass ium 3.0, chloride 106, CO2 19, BUN 72, creatinine 0.8, glucose 165. Phosphorus 1.4. ASSESSMENT: 1. Methicillin-resistant Staphylococcus aureus wound infection. 2. Status post craniotomy for glioblastoma. 3. Diabetes mellitus type 2. 4. Encephalopathy. PLAN: The patient really does not require ICU care at this point. I would advise moving her either to IMCU or the surgical floor. I think her nutrition needs to be addressed either by NG tube or some other means. PICC line may need to be placed for administration of long-term IV antibiotics. Her p otassium and phosphorus are being replaced this morning.
--- NOTE | 2017-08-27 09:34 | PRG ---
DATE OF SERVICE: 08/27/2017 Ms. Borges is now postoperative day 3 following reopening of the right frontal craniotomy wound with infection. She is now on triple antibiotic therapy. Her wound culture demonstrates MRSA. Neurologi antoinette, she had a good day Sunday, was able to sit up in a bedside chair for 2-1/2 hours and even at e. Yesterday she was not as responsive. Head CT demonstrates postoperative changes with no evidence of structural abnormality. Today she is a bit more interactive. She is lying in bed and opens her eyes and attends to the examiner, will weakly follow commands, but simply appears to be encephalopath ic. She has been afebrile and her white blood cell count is trending down. I think she simply needs time. I have discussed this with the family.
[2017-08-27] MEDS: D5 1/2 NS w/20 mEq KCL 1,000 ML IV SCH (10:02)
[2017-08-27] MEDS: Dofetilide 0.125 MG CAP PO SCH ×3 (10:02→20:00)
[2017-08-27] MEDS: Losartan 25 MG TAB PO SCH (10:09)
--- NOTE | 2017-08-27 14:14 | PDOC.PN ---
- Subjective Encounter Start Date: 08/27/17 Encounter Start Time: 14:13 Subjective: remains encephalopathic.not following commands or oepning eyes -: moves around in bed by herself - Objective MAR Reviewed: Yes Vital Signs & Weight: Vital Signs (12 hours) Temp Pulse Resp BP Pulse Ox 08/27/17 14:11 85 165/73 H 08/27/17 10:00 85 163/73 H 08/27/17 08:00 98.2 F 85 15 98 08/27/17 07:00 98.2 F 08/27/17 06:45 100 08/27/17 04:00 97.8 F Weight Weight 178 lb 12.8 oz Most Recent Monitor Data Heart Rate from ECG 83 NIBP 141/63 NIBP BP-Mean 79 Respiration from ECG 16 SpO2 97 I&O: 08/26/17 08/27/17 08/28/17 06:59 06:59 06:59 Intake Total 600 1660 Output Total 2585 1075 150 Balance -1985 585 -150 Result Diagrams: 08/27/17 04:26 08/27/17 04:26 Additional Labs: Microbiology 08/22/17 14:19 Nasopharyngeal swab Influenza Types A,B Direct EIA - Final 08/22/17 16:22 Venous blood - Right Arm Blood Culture - Preliminary NO GROWTH AT 48 HOURS 08/22/17 16:13 Venous blood - Right Hand Blood Culture - Preliminary NO GROWTH AT 48 HOURS Phys Exam - Physical Examination Constitutional: NAD lying on her side.moves around when woken up HEENT: PERRLA, moist MMs, sclera anicteric, oral pharynx no lesions surgical site w clean sutures w/o discharge Neck: no nodes, no JVD, supple, full ROM Respiratory: no wheezing, no rales, no rhonchi, clear to auscultation bilateral Cardiovascular: RRR, no significant murmur Gastrointestinal: soft, non-tender, no distention, positive bowel sounds Musculoskeletal: no edema, pulses present Neurological: non-focal, normal sensation, moves all 4 limbs Deviation from normal: not responding to verbal stimuli.withdraws to pain Skin: no rash Dx/Plan (1) Encephalopathy Code(s): G93.40 - ENCEPHALOPATHY, UNSPECIFIED Status: Acute (2) Post Surgical Infection Status: Acute Comment: s/p washout 08/24/17 (3) Facial cellulitis Code(s): L03.211 - CELLULITIS OF FACE Status: Acute (4) DM type 2 (diabetes mellitus, type 2) Status: Chronic Qualifiers: Diabetes mellitus complication status: with unspecified complications Diabetes mellitus intermodal truck driver insulin use: without halfway use Qualified Code( s): E11.8 - Type 2 diabetes mellitus with unspecified complications (5) Dyslipidemia Code(s): E78.5 - HYPERLIPIDEMIA, UNSPECIFIED Status: Chronic (6) Glioblastoma Code(s): C71.9 - MALIGNANT NEOPLASM OF BRAIN, UNSPECIFIED Status: Chronic Comment: h/o recent resection of mass (7) HTN (hypertension) Code(s): I10 - ESSENTIAL (PRIMARY) HYPERTENSION Status: Chronic Qualifiers: Hypertension type: essential hypertension Qualified Code(s): I10 - Essential (primary) hypertension (8) Brain mass Code(s): G93.9 - DISORDER OF BRAIN, UNSPECIFIED Status: Acute - Plan [place] catheter, continue antibiotics, PT/OT, DVT proph w/SCDs hemodynamically stable despite encephalopathy.PO meds on hold -: cont IVF.changed to D5,1/2 NS w Kcl. -: replace and rechekck Potassium & Phos. -: PICC to be placed for intermodal truck driver IV ABx. -: prognosis guarded-PCT following. * . Review of Systems - Review of Systems Other: can not be obtained due to encephalopathy - Medications/Allergies Allergies/Adverse Reactions: Allergies Allergy/AdvReac Type Severity Reaction Status Date / Time adhesive Allergy BURNING Verified 07/25/17 13:31 RASH hydrocodone Allergy Verified 07/25/17 13:31 Penicillins Allergy ORAL Verified 07/25/17 13:31 SWELLING Medications: Current Medications Acetaminophen (Tylenol) 650 mg PO Q4H PRN PRN Reason: Headache/Fever or Pain Last Admin: 08/22/17 23:31 Dose: 650 mg Dofetilide (Tikosyn) 0.125 mg PO TID SOHAN Last Admin: 08/27/17 13:58 Dose: Not Given Enalaprilat (Vasotec) 1.25 mg SLOW IVP Q6HR [facility] Hydralazine HCl (Apresoline) 5 mg SLOW IVP Q30MIN PRN PRN Reason: SBP GREATER THAN 160 Last Admin: 08/27/17 14:11 Dose: 5 mg Metronidazole 500 mg/ Device 100 mls @ 100 mls/hr IVPB Q8HR [facility] Last Admin: 08/27/17 13:57 Dose: 100 mls Levetiracetam 250 mg/ Sodium (Chloride) 102.5 mls @ 205 mls/hr IVPB BID [facility] Last Admin: 08/27/17 10:00 Dose: 102.5 mls Cefepime HCl 2 gm/ Syringe 2.5 (ml/ Sterile Water) 12.5 mls @ 150 mls/hr SLOW IVP Q8HR [facility] Last Admin: 08/27/17 13:57 Dose: 12.5 mls Linezolid 600 mg/ Device 300 mls @ 150 mls/hr IVPB 0100,1300 [facility] Last Admin: 08/27/17 13:56 Dose: 300 mls Potassium Chloride/Dextrose/Sod Cl (D5 1/2 Ns W/20 Meq Kcl) 1,000 mls @ 75 mls/ hr IV .[id number] [facility] Last Admin: 08/27/17 10:02 Dose: 1,000 mls Losartan Potassium (Cozaar) 50 mg PO BID [facility] Last Admin: 08/27/17 10:09 Dose: Not Given Metoprolol Succinate (Toprol Xl) 50 mg PO BID [facility] Last Admin: 08/27/17 10:08 Dose: Not Given Ccu Electrolyte (Replacement Protocol) 0 each FS PRN PRN PRN Reason: FOR ELECTROLYTE REPLACEMENT Ondansetron HCl (Zofran) 4 mg IVP Q6H PRN PRN Reason: Nausea/Vomiting Last Admin: 08/23/17 15:36 Dose: 4 mg Ranolazine (Ranexa) 500 mg PO BID [facility] Last Admin: 08/27/17 10:08 Dose: Not Given
[2017-08-27] MEDS: Enalaprilat Dihydrate 1.25 MG/ML VIAL SLOW IVP SCH (18:15)
--- NOTE | 2017-08-27 22:05 | PRG ---
DATE OF SERVICE: 08/27/2017 SUBJECTIVE: Ms. Borges is awake, but delirious, does not establish eye contact and mumbles unintelli gible sounds. OBJECTIVE: VITAL SIGNS: T-max 98.9, blood pressure 148/77, pulse 80, respirations 15, O2 sat 98%. HEENT: The craniotomy incision is dry: The ocular movements appear conjugate. Sclerae are white. Pupils are e qual and reactive. LUNGS: Symmetric air entry. HEART: S1, S2, regular rate. ABDOMEN: Soft, not distended, no guarding. She seems to be able to move extremities, but does not f ollow commands. LABORATORY DATA: White cell count down to 15, hemoglobin 12, platelets 220. Sodium 136, creatinine 0.76, glucose 165. Phosphorus 1.4. CRP 11.89. Microbiology with MRSA as the only organism retrieve d from culture. 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 The patient is cu rrently on Zyvox. We will discontinue cefepime, which sometimes can be associated with delirium. Th e patient will need to continue on anti-MRSA therapy for a protracted period of time. End date of erapy is calculated around October 08, 2017 approximately, PICC line placement.
[2017-08-28] MEDS: Enalaprilat Dihydrate 1.25 MG/ML VIAL SLOW IVP SCH ×4 (00:46→18:14)
[2017-08-28] MEDS: Linezolid 600 MG in Premix Bag 1 BAG IVPB SCH ×2 (00:49→13:40)
[2017-08-28 04:10] LABS: #Eosinphils 0.4 thou/uL (0.0-0.7); #Lymphocytes 1.9 thou/uL (1.20-3.40); #Monocytes 1.2 thou/uL (0.11-0.59); #Neutrophils 8.1 thou/uL (1.40-6.50); %Basophils 0.3 % (0.0-1.0); %Eosinophils 3.3 % (0.0-10.0); %Lymphocytes 16.1 % (21.0-51.0); %Monocytes 10.7 % (0.0-10.0); %Neutrophils 69.6 % (42.0-75.0); Hemoglobin 12.8 g/dL (12.0-16.0); Mean Corpuscular HGB CONC 33.4 g/dL (32.0-36.0); Mean Corpuscular Hemoglobin 32.5 pg (27.0-31.0); Mean Corpuscular Volume 97.4 fl (81.0-99.0); Mean Platelet Volume 8.2 fL (7.4-10.4); Platelet Count 170 thou/uL (130-400); Red Blood Cell (RBC) Count 3.92 mill/uL (4.20-5.40); White Blood Cell (WBC) Count 11.6 thou/uL (4.8-10.8)
[2017-08-28 04:49] LABS: Anion Gap 14 mmol/L (10-20); BUN (Urea Nitrogen) 14 mg/dL (9.8-20.1); Calc. Creatinine Clearance 70 mL/min (70-130); Calcium 8.2 mg/dL (7.8-10.44); Carbon Dioxide 17 mmol/L (23-31); Chloride 109 mmol/L (98-107); Estimated GFR-MDRD 77; Glucose 164 mg/dL (83-110); Magnesium 2.1 mg/dL (1.6-2.6); Phosphorus 1.6 mg/dL (2.3-4.7); Potassium 3.8 mmol/L (3.5-5.1); Sodium 136 mmol/L (136-145)
[2017-08-28] MEDS ORDERED: Potassium Phosphate 30 MMOL in Sodium Chloride 0.9% 500 ML IVPB SCH (05:30)
[2017-08-28] MEDS: metroNIDAZOLE 500 MG in Premix Bag 1 BAG IVPB SCH ×3 (05:59→22:09)
[2017-08-28] MEDS: D5 1/2 NS w/20 mEq KCL 1,000 ML IV SCH ×3 (06:00→22:10)
--- NOTE | 2017-08-28 08:48 | PRG ---
DATE OF SERVICE: 08/28/2017 SUBJECTIVE: The patient remains in ICU. There has not been much in the way of change overnight. Arturo lim did not eat yesterday. OBJECTIVE: VITAL SIGNS: On exam, temperature is 98.6, pulse 80, blood pressure 149/88, O2 sat 98%, 24-hour inta ke 2770 and output 1180. HEENT: Unremarkable. NECK: No JVD. CHEST: Clear. CARDIAC: S1 and S2, regular. ABDOMEN: Soft. EXTREMITIES: Trace edema. LABORATORY DATA: White cell count 11.6, hematocrit 38.2, platelet count 170. Sodium 136, potassium 3.8, chloride 108, CO2 of 17, BUN 14, creatinine 0.7, glucose 164. ASSESSMENT: 1. Status post debridement of the wound infection from glioblastoma surgery. 2. Continue encephalopathy. 3. Overall failure to thrive. PLAN: Not much else to offer from the CCU standpoint. We would suggest Dobbhoff tube enteral feedin g if she cannot eat. She could be transferred out of the ICU at any time from my standpoint.
[2017-08-28] MEDS: Dofetilide 0.125 MG CAP PO SCH ×3 (08:49→19:27)
--- NOTE | 2017-08-28 09:44 | PRG ---
DATE OF SERVICE: 08/28/2017 Ms. Borges is hospital day 5 and postoperative day 4 following a left-sided opening of a craniotomy and a wound washout. She is showing slow progress and is verbal this morning and tells me enrrique cardona her speech is garbled. She moves her extremities in a purposeful manner and her eyes are open. We will continue antibiotics. I suspect she needs time. We will consider placement of a temporary feeding tube.
[2017-08-28 11:43] VITALS: BMI 28.0
--- NOTE | 2017-08-28 13:04 | PDOC.PN ---
- Subjective Encounter Start Date: 08/28/17 Encounter Start Time: 13:02 -: non-verbal Subjective: remains about the same.not eating,largley unresponsive -: wakes up & follows son's voice but not following any commands - Objective MAR Reviewed: Yes Vital Signs & Weight: Vital Signs (12 hours) Temp BP Pulse Ox 08/28/17 07:00 97.8 F 08/28/17 05:57 165/86 H 08/28/17 04:00 98.6 F 08/28/17 02:40 97 Weight Admit Weight 178 lb Weight 178 lb 12.8 oz Most Recent Monitor Data Heart Rate from ECG 80 NIBP 160/90 NIBP BP-Mean 109 Respiration from ECG 13 SpO2 98 I&O: 08/27/17 08/28/17 08/29/17 06:59 06:59 06:59 Intake Total 1660 2778 0 Output Total 1075 1180 279 Balance 585 1598 -279 Result Diagrams: 08/28/17 04:03 08/28/17 04:03 Additional Labs: Microbiology 08/24/17 10:05 Cranium - Wound Bacterial Culture - Final 08/24/17 10:05 Cranium - Wound Anaerobic Culture - Final Methicillin resistant S.aureus 08/22/17 16:22 Venous blood - Right Arm Blood Culture - Final NO GROWTH IN 5 DAYS 08/22/17 16:13 Venous blood - Right Hand Blood Culture - Final NO GROWTH IN 5 DAYS 08/22/17 14:19 Nasopharyngeal swab Influenza Types A,B Direct EIA - Final Phys Exam - Physical Examination Constitutional: NAD opens eyes on verbal stimulation HEENT: PERRLA, moist MMs, sclera anicteric, TM's clear, oral pharynx no lesions , 2+ tonsils Neck: no nodes, no JVD, supple, full ROM Respiratory: no wheezing, no rales, no rhonchi, clear to auscultation bilateral Cardiovascular: RRR, no significant murmur Gastrointestinal: soft, non-tender, no distention, positive bowel sounds Musculoskeletal: no edema, pulses present Neurological: moves all 4 limbs Deviation from normal: not oriented at all Skin: no rash Dx/Plan (1) Encephalopathy Code(s): G93.40 - ENCEPHALOPATHY, UNSPECIFIED Status: Acute (2) Post Surgical Infection Status: Acute Comment: s/p washout 08/24/17.Cx +ve for MRSA (3) Facial cellulitis Code(s): L03.211 - CELLULITIS OF FACE Status: Acute (4) DM type 2 (diabetes mellitus, type 2) Status: Chronic Qualifiers: Diabetes mellitus complication status: with unspecified complications Diabetes mellitus nursing home insulin use: without nursing home use Qualified Code( s): E11.8 - Type 2 diabetes mellitus with unspecified complications (5) Dyslipidemia Code(s): E78.5 - HYPERLIPIDEMIA, UNSPECIFIED Status: Chronic (6) Glioblastoma Code(s): C71.9 - MALIGNANT NEOPLASM OF BRAIN, UNSPECIFIED Status: Chronic Comment: h/o recent resection of mass (7) HTN (hypertension) Code(s): I10 - ESSENTIAL (PRIMARY) HYPERTENSION Status: Chronic Qualifiers: Hypertension type: essential hypertension Qualified Code(s): I10 - Essential (primary) hypertension (8) Brain mass Code(s): G93.9 - DISORDER OF BRAIN, UNSPECIFIED Status: Acute - Plan plan discussed w/ family, continue antibiotics, PT/OT, respiratory therapy, incentive spirometry, out of bed/ambulate, DVT proph w/SCDs initiate Tube feeds today.cont IVF for now -: replace & recheck Potassium & Phos prn. -: cont Zyvox IV.PICC placed. ID following -: can move out of CCU.appreciate PCCM help. -: NS following as well.frequent neuro checks. * .Most PO meds on hold for now. Will retsrat once Dobhoff placed. * IV vasotec for now for BP control * daily labs. * guarded prognosis.PCT following Review of Systems - Review of Systems Other: unobtainable due to encephalopathy - Medications/Allergies Allergies/Adverse Reactions: Allergies Allergy/AdvReac Type Severity Reaction Status Date / Time adhesive Allergy BURNING Verified 07/25/17 13:31 RASH hydrocodone Allergy Verified 07/25/17 13:31 Penicillins Allergy ORAL Verified 07/25/17 13:31 SWELLING Medications: Current Medications Acetaminophen (Tylenol) 650 mg PO Q4H PRN PRN Reason: Headache/Fever or Pain Last Admin: 08/22/17 23:31 Dose: 650 mg Dofetilide (Tikosyn) 0.125 mg PO TID [facility]OHAN Last Admin: 08/28/17 08:49 Dose: Not Given Enalaprilat (Vasotec) 1.25 mg SLOW IVP Q6HR [facility] Last Admin: 08/28/17 05:57 Dose: 1.25 mg Hydralazine HCl (Apresoline) 5 mg SLOW IVP Q30MIN PRN PRN Reason: SBP GREATER THAN 160 Last Admin: 08/27/17 14:11 Dose: 5 mg Metronidazole 500 mg/ Device 100 mls @ 100 mls/hr IVPB Q8HR [facility] Last Admin: 08/28/17 05:59 Dose: 100 mls Levetiracetam 250 mg/ Sodium (Chloride) 102.5 mls @ 205 mls/hr IVPB BID [facility] Last Admin: 08/28/17 08:38 Dose: 102.5 mls Linezolid 600 mg/ Device 300 mls @ 150 mls/hr IVPB 0100,1300 [facility] Last Admin: 08/28/17 00:49 Dose: 300 mls Potassium Chloride/Dextrose/Sod Cl (D5 1/2 Ns W/20 Meq Kcl) 1,000 mls @ 75 mls/ hr IV .[id number] [facility] Last Admin: 08/28/17 06:00 Dose: 1,000 mls Losartan Potassium (Cozaar) 50 mg PO BID [facility] Last Admin: 08/27/17 10:09 Dose: Not Given Metoprolol Succinate (Toprol Xl) 50 mg PO BID [facility] Last Admin: 08/28/17 08:49 Dose: Not Given Ccu Electrolyte (Replacement Protocol) 0 each FS PRN PRN PRN Reason: FOR ELECTROLYTE REPLACEMENT Ondansetron HCl (Zofran) 4 mg IVP Q6H PRN PRN Reason: Nausea/Vomiting Last Admin: 08/23/17 15:36 Dose: 4 mg Ranolazine (Ranexa) 500 mg PO BID [facility] Last Admin: 08/28/17 08:49 Dose: Not Given
--- NOTE | 2017-08-28 13:22 | SPC ---
ULTRASOUND GUIDED RIGHT UPPER EXTREMITY PICC LINE PLACEMENT: Date: 08/28/17 HISTORY: MRSA. COMPARISON: None. FINDINGS: Technically successful right upper extremity PICC line placement. Distal tip projects over the superi or vena cava. Trim length is 31 cm. Both lumen flush and aspirate without difficulty. TECHNIQUE: Consent obtained to perform a right upper extremity PICC line placement. Right arm was prepped and dr aped in the sterile fashion. 1% lidocaine, buffered with sodium bicarbonate, was used for local anest hesia. Under ultrasound guidance, a micropuncture needle was used to cannulate the brachial vein. A 0 .018 guidewire was advanced through the needle to the level of the superior vena cava. Tract was dila zaheer. Dual lumen 5 Iranian catheter was advanced through the wire. Wire was removed. Both lumen were fl ushed and aspirated without difficulty. Distal tip is in the superior vena cava. Trim length is 31 cm . IMPRESSION: Technically successful right upper extremity PICC line placement with ultrasound guidance. POS: [facility]
[2017-08-28] MEDS: hydrALAZINE 20 MG/ML VIAL SLOW IVP PRN (15:23)
--- NOTE | 2017-08-28 15:31 | PRG ---
DATE OF SERVICE: 08/28/2017 SUBJECTIVE: The patient is awake, but again intermittently will make eye contact with most of the ti me just looking up and down almost in stereotypical automatic fashion without intent. Being a parent , does not interact with examiner. PHYSICAL EXAMINATION: HEENT: Ocular movements are conjugate. Pupils are 3 mm and reactive. Oral cavity is somewhat dry. LUNGS: Clear. S1 and S2, regular rate. HEAD: Craniotomy incision is dry. NEUROLOGIC: She seems to move extremities, but does not follow commands. LABORATORY DATA: White cell count is 11.6, hemoglobin 12, platelets 170. Sodium 136, creatinine 0.7 2. Microbiology again with MRSA as the only isolate obtained. 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 The patient to continue o n Zyvox alone for a protracted period of time, PICC line in place. May have to be transitioned to va ncomycin if she develops a hematologic toxicity or gastrointestinal toxicity associated with Zyvox.
--- NOTE | 2017-08-28 16:26 | RAD ---
PORTABLE CHEST: History: Assess Dobbhoff placement. FINDINGS: Dobbhoff tube has been placed. The tip is not visualized on this image. It passes throughout the EG j unction and overlies the region of the mid stomach. Heart is mildly enlarged and there is mild vascular engorgement. No acute change in the appearance of the lungs when compared to the exam of 08-24-17. POS: [facility]
[2017-08-29] MEDS: Linezolid 600 MG in Premix Bag 1 BAG IVPB SCH ×2 (01:12→13:14)
[2017-08-29] MEDS: Enalaprilat Dihydrate 1.25 MG/ML VIAL SLOW IVP SCH ×4 (01:12→18:22)
[2017-08-29 04:54] LABS: #Basophils 0.1 thou/uL (0.0-0.2); #Eosinphils 0.5 thou/uL (0.0-0.7); #Lymphocytes 2.6 thou/uL (1.20-3.40); #Monocytes 1.4 thou/uL (0.11-0.59); #Neutrophils 8.8 thou/uL (1.40-6.50); %Basophils 0.4 % (0.0-1.0); %Eosinophils 3.7 % (0.0-10.0); %Lymphocytes 19.5 % (21.0-51.0); %Monocytes 10.1 % (0.0-10.0); %Neutrophils 66.3 % (42.0-75.0); Hemoglobin 12.4 g/dL (12.0-16.0); Mean Corpuscular Hemoglobin 31.6 pg (27.0-31.0); Mean Corpuscular Volume 95.9 fl (81.0-99.0); Mean Platelet Volume 7.7 fL (7.4-10.4); Platelet Count 212 thou/uL (130-400); RBC Distribution Width 13.2 % (11.5-14.5); Red Blood Cell (RBC) Count 3.94 mill/uL (4.20-5.40); White Blood Cell (WBC) Count 13.3 thou/uL (4.8-10.8)
[2017-08-29 05:11] LABS: Anion Gap 11 mmol/L (10-20); BUN (Urea Nitrogen) 16 mg/dL (9.8-20.1); Calc. Creatinine Clearance 61 mL/min (70-130); Calcium 8.9 mg/dL (7.8-10.44); Carbon Dioxide 23 mmol/L (23-31); Chloride 106 mmol/L (98-107); Estimated GFR-MDRD 65; Glucose 201 mg/dL (83-110); Magnesium 1.7 mg/dL (1.6-2.6); Phosphorus 2.2 mg/dL (2.3-4.7); Potassium 3.7 mmol/L (3.5-5.1); Sodium 136 mmol/L (136-145)
[2017-08-29] MEDS: metroNIDAZOLE 500 MG in Premix Bag 1 BAG IVPB SCH ×3 (06:30→22:36)
--- NOTE | 2017-08-29 07:45 | PRG ---
DATE OF SERVICE: 08/29/2017 The patient is about the same. She continues to be noncommunicative, although she will open her eyes to voice. PHYSICAL EXAMINATION: VITAL SIGNS: Temperature 98.0, pulse 82, blood pressure 107/45. 24 hour intake 3506, output 1416. HEENT: Unremarkable except for the scalp wound which is healing well. NECK: No JVD. CHEST: Clear. CARDIAC: S1 and S2 regular. ABDOMEN: Soft, nontender. EXTREMITIES: No edema. LABORATORY DATA: White blood cell count 13, hematocrit 37.8, platelet count 212. Sodium 136, potass ium 3.7, chloride 106, CO2 23, BUN 16, creatinine 0.8, glucose 201. ASSESSMENT: 1. Scalp wound with methicillin-resistant Staphylococcus aureus. 2. Encephalopathy. PLAN: She will be transferred out to the floor. There is no indication for continued ICU care. She is receiving enteral tube feeds. If her mental status does not improve then she will likely need a feeding tube placed. She will continue antibiotic therapy under the direction of Dr. Camacho. Shannan covarrubias is available for further care as needed.
[2017-08-29] MEDS: Sodium Chloride 0.9% 1,000 ML IV SCH ×2 (08:35→22:39)
[2017-08-29] MEDS: Dofetilide 0.125 MG CAP PO SCH ×3 (08:40→22:37)
--- NOTE | 2017-08-29 11:15 | PRG ---
DATE OF SERVICE: 08/29/2017 CONTINUATION OF [id number] The patient had a Dobbhoff tube placed yesterday for minimal oral intake as well as a PICC line place ment as per Infectious Disease. The patient remains at her current neurologic baseline. She minimal ly follows commands in all 4 extremities, although does track to the voice of the examiner. She will open her eyes spontaneously. Her incision is covered to avoid her manipulating it. The patient rig ht now is stable for transition to the surgical floor. We will reduce her neuro checks to q.4h., rat her than q.2h. I have updated her son at bedside and he is pleased that the patient truly is moving in the right direction neurologically, it is just a matter of getting the correct antibiotics as per Infectious Disease and to let the brain itself reset. We will continue to follow the patient, but earlene lim is moving in the right direction. Consideration will need to be given for inpatient rehab at [facility]. Please call with any questions or changes in the patient's neurologic status. Otherwise, we will tra nsfer her to the floor and continue to follow her. We appreciate the medical management with our [facility] team.
--- NOTE | 2017-08-29 12:29 | PRG ---
DATE OF SERVICE: 08/29/2017 Ms. Borges is now postoperative day #5, having undergone cranial wound exploration for superficial wo und infection. Patient had a Dobhoff tube placed. She has had minimal oral intake .
--- NOTE | 2017-08-29 15:31 | PDOC.PN ---
- Subjective Encounter Start Date: 08/29/17 Encounter Start Time: 09:00 Pt seen for followup re: acute encephalopathy. Answering some questions by nodding or shaking head, but not on a consistent basis. Unable to complete ROS. - Objective MAR Reviewed: Yes Vital Signs & Weight: Vital Signs (12 hours) Temp Pulse Resp BP BP Pulse Ox 08/29/17 13:13 107/45 L 08/29/17 11:05 98.0 F 80 20 145/77 H 98 08/29/17 08:00 98.7 F 83 15 98 08/29/17 07:00 98.7 F 08/29/17 06:31 107/45 L 08/29/17 04:33 98 08/29/17 04:00 98.0 F Weight Admit Weight 178 lb Weight 178 lb 12.8 oz Most Recent Monitor Data Heart Rate from ECG 86 NIBP 125/61 NIBP BP-Mean 84 Respiration from ECG 24 SpO2 97 I&O: 08/28/17 08/29/17 08/30/17 06:59 06:59 06:59 Intake Total 2778 3506 Output Total 1180 1460 130 Balance 1598 2046 -130 Result Diagrams: 08/29/17 04:48 08/29/17 04:48 Phys Exam - Physical Examination Constitutional: NAD HEENT: moist MMs Scalp sutures; NG tube Neck: supple Respiratory: clear to auscultation bilateral Cardiovascular: RRR Gastrointestinal: soft Neurological: moves all 4 limbs Psychiatric: normal affect Skin: no rash Dx/Plan (1) Encephalopathy Code(s): G93.40 - ENCEPHALOPATHY, UNSPECIFIED Status: Acute (2) DM type 2 (diabetes mellitus, type 2) Status: Chronic Qualifiers: Diabetes mellitus complication status: with unspecified complications Diabetes mellitus fdc insulin use: without wireworker use Qualified Code( s): E11.8 - Type 2 diabetes mellitus with unspecified complications (3) Dyslipidemia Code(s): E78.5 - HYPERLIPIDEMIA, UNSPECIFIED Status: Chronic (4) HTN (hypertension) Code(s): I10 - ESSENTIAL (PRIMARY) HYPERTENSION Status: Chronic Qualifiers: Hypertension type: essential hypertension Qualified Code(s): I10 - Essential (primary) hypertension - Plan plan discussed w/ family, continue antibiotics * . Pt has PICC line. To be transfered out of CCU. Continue accuchecks, insulin sliding scale. Review of Systems - Medications/Allergies Allergies/Adverse Reactions: Allergies Allergy/AdvReac Type Severity Reaction Status Date / Time adhesive Allergy BURNING Verified 07/25/17 13:31 RASH hydrocodone Allergy Verified 07/25/17 13:31 Penicillins Allergy ORAL Verified 07/25/17 13:31 SWELLING Medications: Current Medications Acetaminophen (Tylenol) 650 mg PO Q4H PRN PRN Reason: Headache/Fever or Pain Last Admin: 08/22/17 23:31 Dose: 650 mg Dofetilide (Tikosyn) 0.125 mg PO TID [facility] Last Admin: 08/29/17 08:40 Dose: 0.125 mg Enalaprilat (Vasotec) 1.25 mg SLOW IVP Q6HR [facility] Last Admin: 08/29/17 13:13 Dose: 1.25 mg Hydralazine HCl (Apresoline) 5 mg SLOW IVP Q30MIN PRN PRN Reason: SBP GREATER THAN 160 Last Admin: 08/28/17 15:23 Dose: 5 mg Metronidazole 500 mg/ Device 100 mls @ 100 mls/hr IVPB Q8HR [facility] Last Admin: 08/29/17 06:30 Dose: 100 mls Levetiracetam 250 mg/ Sodium (Chloride) 102.5 mls @ 205 mls/hr IVPB BID [facility] Last Admin: 08/29/17 08:35 Dose: 102.5 mls Linezolid 600 mg/ Device 300 mls @ 150 mls/hr IVPB 0100,1300 [facility] Last Admin: 08/29/17 13:14 Dose: 300 mls Sodium Chloride (Normal Saline 0.9%) 1,000 mls @ 75 mls/hr IV .[id number] [facility] Last Admin: 08/29/17 08:35 Dose: 1,000 mls Losartan Potassium (Cozaar) 50 mg PO BID [facility] Last Admin: 08/27/17 10:09 Dose: Not Given Metoprolol Succinate (Toprol Xl) 50 mg PO BID [facility] Last Admin: 08/29/17 08:40 Dose: 50 mg Miscellaneous Medication (Phos-Nak) 1 pkt PO 1100,2100 [facility] Stop: 08/29/17 23:59 Last Admin: 08/29/17 13:13 Dose: 1 pkt Ondansetron HCl (Zofran) 4 mg IVP Q6H PRN PRN Reason: Nausea/Vomiting Last Admin: 08/23/17 15:36 Dose: 4 mg Ranolazine (Ranexa) 500 mg PO BID [facility] Last Admin: 08/29/17 08:40 Dose: Not Given
--- NOTE | 2017-08-29 16:20 | PQF ---
CLINICAL DOCUMENTATION IMPROVEMENT CLARIFICATION FORM: ICD-10 Updated PLEASE DO AN ADDENDUM TO THE PROGRESS NOTE WITH ANY DOCUMENTATION UPDATES OR ADDITIONS AND CARRY THROUGH TO DC SUMMARY. THANK YOU. Date: 08/29/17 ATTN: DR. FULLER Please exercise your independent, professional judgment in responding to the clarification form. Clinical indicators are provided on the bottom of this form for your review Please check appropriate box(s): [ ] Protein Calorie Malnutrition: [ ] Mild [ ] Moderate [ ] Severe [ ] Other Malnutrition (please specify) __ [ ] Underweight without malnutrition [ ] Cachexia [ ] Other diagnosis [ X ] Unable to determine In addition, please specify: Present on Admission (POA): [ ] Yes [ ] No [ ] Unable to determine CLINICAL INDICATORS - SIGNS / SYMPTOMS / LABS DIETARY NOTE 08/28: "RN REPORTS DURING ROUNDS THAT THE PATIENT IS NOT EATING. SHE STATED THE PATIENT IS NOT AWAKE ENOUGH TO ATTEMPT TO SWALLOW WATER." BMI 28 RISKS: ADVANCED AGE ALTERED MENTAL STATUS / ENCEPHALOPATHY POOR WOUND HEALING / WOUND INFECTION TREATMENT: DIETARY CONSULT DOBHOFF PLACEMENT WITH TUBE FEEDS ELECTROLYTE REPLACEMENT PROTOCOL Moderate Malnutrition (in acute illness) Energy Intake: <75% of estimated energy requirement for > 7 days Weight Loss: 1-2%/1 week; 5%/ 1 month; 7.5%/3 months Other: mild body fat loss; mild muscle mass loss; mild fluid accumulation; Severe Malnutrition (in acute illness) Energy Intake: < 50% of estimated energy requirement for > 5 days Weight Loss: >1-2%/1 week; >5%/1 month; >7.5%/3 months Other: moderate body fat loss; moderate muscle mass loss; moderate- severe fluid accumulation; measurably reduced project developer strength Moderate Malnutrition (in chronic illness) Energy Intake: <75% of estimated energy requirement for >1 month Weight Loss: 5%/1 month; 7.5%/3 months; 10%/6 months; 20%/1 year Other: mild body fat loss; mild muscle mass loss; mild fluid accumulation Severe Malnutrition (in chronic illness) Energy Intake: <75% of estimated energy requirement for >1 month Weight Loss: >5%/1 month; >7.5%/3 months; >10%/6 months; >20%/1 year Other: severe body fat loss; severe muscle mass loss; severe fluid accumulation ; measurably reduced project developer strength (This form is maintained as a part of the permanent medical record) 2014 [employer], [employer]. All Rights Reserved GENARO [email or web address] Office: [phone] [facility]
--- NOTE | 2017-08-29 16:43 | ULT ---
BILATERAL LOWER EXTREMITY VENOUS ULTRASOUND 08/29/17 HISTORY: Impaired mobility due to recent surgery. COMPARISON: None. TECHNIQUE: Dan scale, color flow, doppler imaging with spectral waveform analysis performed in the left and rig ht lower extremity deep venous system. FINDINGS: Bilaterally, there is compressibility, presence of flow and augmentation of the common femoral veins, femoral veins, and popliteal veins. There is flow in the bilateral saphenous veins, profunda veins a nd posterior tibial veins. IMPRESSION: No evidence of thrombus in the right or left lower extremity deep venous system. POS: [facility]
[2017-08-29] MEDS: Losartan 25 MG TAB PO SCH (22:36)
[2017-08-30] MEDS: Linezolid 600 MG in Premix Bag 1 BAG IVPB SCH ×2 (01:36→13:10)
[2017-08-30] MEDS: hydrALAZINE 20 MG/ML VIAL SLOW IVP PRN ×2 (01:37→22:15)
[2017-08-30] MEDS: Enalaprilat Dihydrate 1.25 MG/ML VIAL SLOW IVP SCH ×4 (01:58→17:29)
[2017-08-30 04:51] LABS: #Basophils 0.1 thou/uL (0.0-0.2); #Eosinphils 0.3 thou/uL (0.0-0.7); #Lymphocytes 2.8 thou/uL (1.20-3.40); #Monocytes 1.7 thou/uL (0.11-0.59); #Neutrophils 10.1 thou/uL (1.40-6.50); %Basophils 0.3 % (0.0-1.0); %Eosinophils 1.8 % (0.0-10.0); %Lymphocytes 19.1 % (21.0-51.0); %Monocytes 11.3 % (0.0-10.0); %Neutrophils 67.5 % (42.0-75.0); Hemoglobin 13.1 g/dL (12.0-16.0); Mean Corpuscular HGB CONC 33.3 g/dL (32.0-36.0); Mean Corpuscular Volume 96.2 fl (81.0-99.0); Platelet Count 190 thou/uL (130-400); RBC Distribution Width 13.4 % (11.5-14.5); Red Blood Cell (RBC) Count 4.08 mill/uL (4.20-5.40); White Blood Cell (WBC) Count 14.9 thou/uL (4.8-10.8)
[2017-08-30 05:03] LABS: Anion Gap 15 mmol/L (10-20); BUN (Urea Nitrogen) 14 mg/dL (9.8-20.1); Calc. Creatinine Clearance 70 mL/min (70-130); Calcium 8.8 mg/dL (7.8-10.44); Carbon Dioxide 20 mmol/L (23-31); Chloride 103 mmol/L (98-107); Estimated GFR-MDRD 77; Glucose 194 mg/dL (83-110); Magnesium 1.7 mg/dL (1.6-2.6); Potassium 3.9 mmol/L (3.5-5.1); Sodium 134 mmol/L (136-145)
[2017-08-30 05:16] LABS: Phosphorus 1.9 mg/dL (2.3-4.7)
[2017-08-30] MEDS: metroNIDAZOLE 500 MG in Premix Bag 1 BAG IVPB SCH (06:08)
[2017-08-30] MEDS ORDERED: Potassium Phosphate 12 MMOL in Sodium Chloride 0.9% 250 ML 250 ML IVPB SCH (06:30)
[2017-08-30] MEDS: Dofetilide 0.125 MG CAP PO SCH ×3 (09:13→22:14)
[2017-08-30] MEDS: Losartan 25 MG TAB PO SCH ×2 (09:14→22:49)
--- NOTE | 2017-08-30 13:43 | PDOC.PN ---
- Subjective Encounter Start Date: 08/30/17 Encounter Start Time: 08:20 Pt seen for followup re; acute encephalopathy. Not answering questions, unable to complete ROS. Opening eyes to voice. - Objective MAR Reviewed: Yes Vital Signs & Weight: Vital Signs (12 hours) Temp Pulse Resp BP BP Pulse Ox 08/30/17 13:09 152/82 H 08/30/17 11:02 97.6 F 84 14 172/89 H 97 08/30/17 08:00 99.4 F 87 20 08/30/17 07:50 99.4 F 87 20 155/79 H 98 08/30/17 07:17 152/82 H 08/30/17 06:04 98.0 F 76 16 176/68 H 95 08/30/17 01:58 189/83 H Weight Admit Weight 178 lb Weight 178 lb 12.8 oz Most Recent Monitor Data Heart Rate from ECG 86 NIBP 125/61 NIBP BP-Mean 84 Respiration from ECG 24 SpO2 97 I&O: 08/29/17 08/30/17 08/31/17 06:59 06:59 06:59 Intake Total 3506 385 1300 Output Total 8424 178 9556 Balance 2046 -545 -350 Result Diagrams: 08/30/17 04:30 08/30/17 04:30 Phys Exam - Physical Examination Constitutional: NAD HEENT: moist MMs Neck: supple Respiratory: clear to auscultation bilateral Cardiovascular: RRR Gastrointestinal: soft Neurological: moves all 4 limbs Psychiatric: normal affect Deviation from normal: Scalp surgical site clean Dx/Plan (1) Encephalopathy Code(s): G93.40 - ENCEPHALOPATHY, UNSPECIFIED Status: Acute Comment: Fluctuating LOC (2) DM type 2 (diabetes mellitus, type 2) Status: Chronic Qualifiers: Diabetes mellitus complication status: with unspecified complications Diabetes mellitus mcc insulin use: without vermin exterminator use Qualified Code( s): E11.8 - Type 2 diabetes mellitus with unspecified complications Comment: Continue accuchecks, insulin sliding scale. (3) Dyslipidemia Code(s): E78.5 - HYPERLIPIDEMIA, UNSPECIFIED Status: Chronic (4) HTN (hypertension) Code(s): I10 - ESSENTIAL (PRIMARY) HYPERTENSION Status: Chronic Qualifiers: Hypertension type: essential hypertension Qualified Code(s): I10 - Essential (primary) hypertension Comment: Monitor vital signs, titrate antihypertensives as needed. - Plan continue antibiotics, PT/OT, out of bed/ambulate * . Continue linezolid. Review of Systems - Medications/Allergies Allergies/Adverse Reactions: Allergies Allergy/AdvReac Type Severity Reaction Status Date / Time adhesive Allergy BURNING Verified 07/25/17 13:31 RASH hydrocodone Allergy Verified 07/25/17 13:31 Penicillins Allergy ORAL Verified 07/25/17 13:31 SWELLING Medications: Current Medications Acetaminophen (Tylenol) 650 mg PO Q4H PRN PRN Reason: Headache/Fever or Pain Last Admin: 08/22/17 23:31 Dose: 650 mg Dofetilide (Tikosyn) 0.125 mg PO TID [facility] [place] Last Admin: 08/30/17 09:13 Dose: 0.125 mg Enalaprilat (Vasotec) 1.25 mg SLOW IVP Q6HR [facility] Last Admin: 08/30/17 13:09 Dose: 1.25 mg Hydralazine HCl (Apresoline) 5 mg SLOW IVP Q30MIN PRN PRN Reason: SBP GREATER THAN 160 Last Admin: 08/30/17 01:37 Dose: 5 mg Levetiracetam 250 mg/ Sodium (Chloride) 102.5 mls @ 205 mls/hr IVPB BID [facility] Last Admin: 08/30/17 09:10 Dose: 102.5 mls Linezolid 600 mg/ Device 300 mls @ 150 mls/hr IVPB 0100,1300 [facility] Last Admin: 08/30/17 13:10 Dose: 300 mls Sodium Chloride (Normal Saline 0.9%) 1,000 mls @ 75 mls/hr IV .[id number] [facility] [place] Last Admin: 08/29/17 22:39 Dose: 1,000 mls Losartan Potassium (Cozaar) 50 mg PO BID [facility] Last Admin: 08/30/17 09:14 Dose: 50 mg Metoprolol Succinate (Toprol Xl) 50 mg PO BID [facility] Last Admin: 08/30/17 09:14 Dose: 50 mg Ondansetron HCl (Zofran) 4 mg IVP Q6H PRN PRN Reason: Nausea/Vomiting Last Admin: 08/23/17 15:36 Dose: 4 mg Ranolazine (Ranexa) 500 mg PO BID [facility] Last Admin: 08/30/17 09:14 Dose: Not Given
--- NOTE | 2017-08-30 14:08 | PRG ---
DATE OF SERVICE: 08/30/2017 Ms. Borges is postoperative day 6 following reopening of a right frontal craniotomy wound and washout . She has mild elevation of a white blood cell count, but has remained afebrile. Her neurological e xam has waxed and waned. Today she appears to be less responsive, but does open her eyes to voice in termittently. She moves her extremities spontaneously, but is worse than she was yesterday. We alre suad have postoperative scans that demonstrate no structural pathology. It is not at all unusual for p atients as they age to have waxing and waning of their neurologic status in the postoperative state, in particular when glioblastoma infection is involved. We will continue to closely follow her. My h ope is that her neurological status will improve and stabilize in that regard. I should note her wou nd is dry with no evidence of drainage. She is on antibiotics.
[2017-08-30] MEDS: Sodium Chloride 0.9% 1,000 ML IV SCH (15:46)
[2017-08-31] MEDS: Enalaprilat Dihydrate 1.25 MG/ML VIAL SLOW IVP SCH ×4 (01:01→19:00)
[2017-08-31] MEDS: Linezolid 600 MG in Premix Bag 1 BAG IVPB SCH ×2 (01:02→13:13)
[2017-08-31] MEDS: Sodium Chloride 0.9% 1,000 ML IV SCH ×2 (01:03→06:16)
[2017-08-31 04:26] LABS: #Basophils 0.1 thou/uL (0.0-0.2); #Eosinphils 0.2 thou/uL (0.0-0.7); #Lymphocytes 3.6 thou/uL (1.20-3.40); #Monocytes 2.1 thou/uL (0.11-0.59); #Neutrophils 11.9 thou/uL (1.40-6.50); %Basophils 0.5 % (0.0-1.0); %Eosinophils 1.1 % (0.0-10.0); %Monocytes 11.5 % (0.0-10.0); %Neutrophils 66.9 % (42.0-75.0); Hemoglobin 13.6 g/dL (12.0-16.0); Mean Corpuscular HGB CONC 33.2 g/dL (32.0-36.0); Mean Corpuscular Hemoglobin 32.2 pg (27.0-31.0); Mean Corpuscular Volume 96.9 fl (81.0-99.0); Mean Platelet Volume 8.5 fL (7.4-10.4); Platelet Count 155 thou/uL (130-400); RBC Distribution Width 13.4 % (11.5-14.5); Red Blood Cell (RBC) Count 4.22 mill/uL (4.20-5.40); White Blood Cell (WBC) Count 17.7 thou/uL (4.8-10.8)
[2017-08-31 04:45] LABS: Anion Gap 14 mmol/L (10-20); BUN (Urea Nitrogen) 15 mg/dL (9.8-20.1); Calc. Creatinine Clearance 70 mL/min (70-130); Calcium 8.9 mg/dL (7.8-10.44); Carbon Dioxide 21 mmol/L (23-31); Chloride 98 mmol/L (98-107); Estimated GFR-MDRD 77; Glucose 162 mg/dL (83-110); Magnesium 1.7 mg/dL (1.6-2.6); Potassium 4.3 mmol/L (3.5-5.1); Sodium 129 mmol/L (136-145)
[2017-08-31 05:28] LABS: Phosphorus 2.6 mg/dL (2.3-4.7)
[2017-08-31] MEDS: Dofetilide 0.125 MG CAP PO SCH ×3 (08:48→22:00)
[2017-08-31] MEDS: Losartan 25 MG TAB PO SCH ×2 (08:48→22:00)
--- NOTE | 2017-08-31 13:22 | PRG ---
DATE OF SERVICE: 08/31/2017 Ms. Borges is hospital day 9 and postoperative day #7 following reopening of a right frontal cranioto my wound for GBM resection with the presence of infection. Unfortunately, Ms. Borges appears to have declined on my exam both yesterday and today. We have done postoperative imaging and I am concerned that she simply is having a failure to thrive at this point, with no clear active issue to treat. S he is on antibiotics for her intracranial infection. She has been afebrile. Her white blood cell co unt continues to climb. Her wound is dry with no evidence of drainage, but neurologically the patien t remains quite encephalopathic. She opens her eyes to voice, but does not keep them open. She does look at the examiner, but then closes her eyes. She is purposeful in her upper and lower extremitie s, but does not actively move her extremities to command. My concern is Ms. Borges is unfortunately declining and I think it prudent to get Palliative Care involved at this point. I have come by to e the family on 2 occasions, but I know that they are busy and I have called this morning. I will ca ll again to let them know my thoughts. The concern clearly at this point is should we continue to ag gressively treat Ms. Borges. It is not unusual in the postoperative period, particularly after 2 bra in operations for the patient's that are elderly to have encephalopathy postoperatively for various r easons that we are unable to truly diagnosed, but rather just an encephalopathy and they will subsequ ent to that improve over days to weeks. The problem for Ms. Borges that concerns me is she seems to have declined rapidly over the course of the last week with no evidence of improvement. Couple that with the increasing white blood cell count, my concern is she could develop a pneumonia or even a uri ne infection that could lead to further demise. One option is continue aggressive treatments with e antibiotics and the feedings through the weekend and then reassess on Sunday.
--- NOTE | 2017-08-31 14:25 | PDOC.PN ---
- Subjective Encounter Start Date: 08/31/17 Encounter Start Time: 08:00 Pt seen for followup re: acute encephalopathy. Not responding to tactile stimuli. Nonverbal, unable to complete ROS. - Objective MAR Reviewed: Yes Vital Signs & Weight: Vital Signs (12 hours) Temp Pulse Resp BP BP Pulse Ox 08/31/17 13:08 164/80 H 08/31/17 11:30 97.5 F L 82 14 159/89 H 96 08/31/17 11:15 97 08/31/17 07:55 97.6 F 93 16 168/97 H 97 08/31/17 05:53 164/80 H 08/31/17 04:51 99.0 F 84 19 170/80 H 97 Weight Admit Weight 180 lb 5 oz Weight 178 lb 12.8 oz Most Recent Monitor Data Heart Rate from ECG 86 NIBP 125/61 NIBP BP-Mean 84 Respiration from ECG 24 SpO2 97 I&O: 08/30/17 08/31/17 09/01/17 06:59 06:59 06:59 Intake Total 385 3960 Output Total 930 4200 Balance -545 -240 Result Diagrams: 08/31/17 03:56 08/31/17 03:56 Phys Exam - Physical Examination HEENT: moist MMs NG tube+; surgical site clean Respiratory: clear to auscultation bilateral Cardiovascular: RRR Gastrointestinal: soft Musculoskeletal: pulses present Deviation from normal: Unable to assess affect or orientation Deviation from normal: surgical site clean Dx/Plan (1) Encephalopathy Code(s): G93.40 - ENCEPHALOPATHY, UNSPECIFIED Status: Acute Comment: Worse today (2) DM type 2 (diabetes mellitus, type 2) Status: Chronic Qualifiers: Diabetes mellitus complication status: with unspecified complications Diabetes mellitus termite technician insulin use: without longterm use Qualified Code( s): E11.8 - Type 2 diabetes mellitus with unspecified complications Comment: On accuchecks and insulin sliding scale. (3) Dyslipidemia Code(s): E78.5 - HYPERLIPIDEMIA, UNSPECIFIED Status: Chronic (4) HTN (hypertension) Code(s): I10 - ESSENTIAL (PRIMARY) HYPERTENSION Status: Chronic Qualifiers: Hypertension type: essential hypertension Qualified Code(s): I10 - Essential (primary) hypertension Comment: titrate antihypertensives as needed. - Plan plan discussed w/ family, continue antibiotics * . d/w neurosurgery. Plan is to continue antibiotics. If pt does not improve, deescalate early next week. palliative care following. Review of Systems - Medications/Allergies Allergies/Adverse Reactions: Allergies Allergy/AdvReac Type Severity Reaction Status Date / Time adhesive Allergy BURNING Verified 07/25/17 13:31 RASH hydrocodone Allergy Verified 07/25/17 13:31 Penicillins Allergy ORAL Verified 07/25/17 13:31 SWELLING Medications: Current Medications Acetaminophen (Tylenol) 650 mg PO Q4H PRN PRN Reason: Headache/Fever or Pain Last Admin: 08/22/17 23:31 Dose: 650 mg Dofetilide (Tikosyn) 0.125 mg PO TID [facility] Last Admin: 08/31/17 08:48 Dose: 0.125 mg Enalaprilat (Vasotec) 1.25 mg SLOW IVP Q6HR [facility] Last Admin: 08/31/17 13:08 Dose: 1.25 mg Hydralazine HCl (Apresoline) 5 mg SLOW IVP Q2H PRN PRN Reason: SBP GREATER THAN 160 Last Admin: 08/30/17 22:15 Dose: 5 mg Levetiracetam 250 mg/ Sodium (Chloride) 102.5 mls @ 205 mls/hr IVPB BID [facility] Last Admin: 08/31/17 08:49 Dose: 102.5 mls Linezolid 600 mg/ Device 300 mls @ 150 mls/hr IVPB 0100,1300 [facility] Last Admin: 08/31/17 13:13 Dose: 300 mls Sodium Chloride (Normal Saline 0.9%) 1,000 mls @ 75 mls/hr IV .[id number] [facility] Last Admin: 08/31/17 06:16 Dose: 1,000 mls Losartan Potassium (Cozaar) 50 mg PO BID [facility] Last Admin: 08/31/17 08:48 Dose: 50 mg Metoprolol Succinate (Toprol Xl) 50 mg PO BID [facility] Last Admin: 08/31/17 09:11 Dose: Not Given Ondansetron HCl (Zofran) 4 mg IVP Q6H PRN PRN Reason: Nausea/Vomiting Last Admin: 08/23/17 15:36 Dose: 4 mg Ranolazine (Ranexa) 500 mg PO BID [facility] Last Admin: 08/31/17 09:11 Dose: Not Given
--- NOTE | 2017-08-31 16:08 | RAD ---
ONE VIEW CHEST: HISTORY: Elevated white blood cell count. Impaired mobility. COMPARISON: None. FINDINGS: There is evidence of a Dobbhoff feeding tube with distal tip likely in the distal stomach. A left-si ded transvenous pacemaker with leads in the right atrium and right ventricle. Right-sided PICC line with its tip projecting over the SVC/right atrial junction. There is atherosclerosis. Normal cardia c silhouette. Lungs volumes are slightly diminished. Patchy interstitial opacities, without consoli dation or mass. No pneumothorax or osseous abnormalities. IMPRESSION: No acute cardiopulmonary process. Additional findings as above. POS: [facility]
[2017-08-31] MEDS: Acetaminophen 325 MG TAB PO PRN (16:47)
--- NOTE | 2017-08-31 19:58 | PRG ---
DATE OF SERVICE: 08/31/2017 SUBJECTIVE: Ms. Borges is bit less responsive today. Had low grade temperature elevation. No diarr hea, no vomiting or evidence of aspiration. OBJECTIVE: VITAL SIGNS: T-max 100.4 just a while ago, blood pressure 150/70, pulse 93, respirations 14-20, O2 s aturation 97%. GENERAL: The patient kept her eyes closed for most of the exam. At the end, she starts opening, but did not establish eye contact, did not follow commands. HEENT: Pupils are about 1 mm and reactive. Eye movements appear to be conjugate. Sclerae is white. She has a Dobbhoff tube in place. LUNGS: Symmetric clear breath sounds. CARDIOVASCULAR: S1, S2, regular rate. No S3 or S4. ABDOMEN: Soft, not distended or tender. No bladder distention. Ruiz catheter in place. EXTREMITIES: There is a PICC line in the right upper extremity. Plantar responses are indifferent. Pulses 1+ in dorsalis pedis. I could not elicit any movements in upper or lower extremities. LABORATORY DATA: The white cell count is up to 17,000, hemoglobin 13, platelets 155. Differential s hows a decrease in neutrophil percentage to 66%, lymphocyte percentage is up to 20% and the chemistri es fairly unremarkable except for worsening hyponatremia at 129, glucose 162. Last urinalysis from a few days ago actually about 10 days ago, was not remarkable. The patient had a chest x-ray, which s howed some minor findings in interstitial areas. Two sets of blood cultures were collected today. T here is a urine culture submitted as well as urinalysis. 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 Currently on Zyvox alone. PICC line in place. Now, the patient with low grade temperature elevation. Workup has been submitted. We will add a duplex ultrasound of the lower extremities. Add second antimicrobial coverage for gram negative rashi coverag e.
[2017-08-31] MEDS: Meropenem 2 GM in Sodium Chloride 0.9% 100 ML IVPB SCH (22:00)
[2017-09-01] MEDS: Enalaprilat Dihydrate 1.25 MG/ML VIAL SLOW IVP SCH ×4 (01:00→18:49)
[2017-09-01] MEDS: Linezolid 600 MG in Premix Bag 1 BAG IVPB SCH ×2 (01:51→13:47)
[2017-09-01] MEDS: Sodium Chloride 0.9% 1,000 ML IV SCH ×2 (02:15→18:53)
[2017-09-01 05:23] LABS: #Basophils 0.1 thou/uL (0.0-0.2); #Eosinphils 0.2 thou/uL (0.0-0.7); #Monocytes 1.8 thou/uL (0.11-0.59); #Neutrophils 11.9 thou/uL (1.40-6.50); %Basophils 0.3 % (0.0-1.0); %Eosinophils 1.2 % (0.0-10.0); %Lymphocytes 17.5 % (21.0-51.0); %Monocytes 10.5 % (0.0-10.0); %Neutrophils 70.5 % (42.0-75.0); Mean Corpuscular HGB CONC 32.5 g/dL (32.0-36.0); Mean Corpuscular Hemoglobin 31.6 pg (27.0-31.0); Mean Corpuscular Volume 97.2 fl (81.0-99.0); Mean Platelet Volume 8.1 fL (7.4-10.4); Platelet Count 165 thou/uL (130-400); RBC Distribution Width 13.5 % (11.5-14.5); Red Blood Cell (RBC) Count 3.81 mill/uL (4.20-5.40); White Blood Cell (WBC) Count 16.9 thou/uL (4.8-10.8)
[2017-09-01 05:27] LABS: Anion Gap 15 mmol/L (10-20); BUN (Urea Nitrogen) 18 mg/dL (9.8-20.1); Calc. Creatinine Clearance 68 mL/min (70-130); Calcium 8.6 mg/dL (7.8-10.44); Carbon Dioxide 20 mmol/L (23-31); Chloride 98 mmol/L (98-107); Estimated GFR-MDRD 73; Glucose 182 mg/dL (83-110); Magnesium 2.1 mg/dL (1.6-2.6); Phosphorus 2.9 mg/dL (2.3-4.7); Sodium 127 mmol/L (136-145)
[2017-09-01] MEDS: Meropenem 2 GM in Sodium Chloride 0.9% 100 ML IVPB SCH ×3 (06:54→21:23)
--- NOTE | 2017-09-01 07:17 | PRG ---
DATE OF SERVICE: 09/01/2017 Ms. Borges is an 86-year-old female that had a right frontal GBM resected a couple weeks ago. Dr. Yanez is on her case, as she returned with a wound infection that resulted in a washout. This morning, she is able to open her eyes and localize in her extremities bilaterally in the upper and lower. Arturo lim does not follow my commands; however, she does look for me when I talk in the room. She has [employer] currently running. Overnight, there have been no acute events. Her vital signs have been stable. She is slightly hypertensive at 143/71. Sodium this morning is 127. She has a white blood cell co unt of 16.9 this morning. Palliative care has been ordered, and if there are no major improvements i n her mental status over the weekend, hospice may be an option. If there are any further questions, please feel free to contact Neurosurgery.
[2017-09-01 07:33] LABS: Bilirubin Negative (Negative); Blood, Urine Negative (Negative); Clarity CLEAR (Clear); Glucose, Urine (Dipstick) Negative (Negative); Leukocyte Small (Negative); Nitrite Negative (Negative); Protein, Urine (Dipstick) Negative (Neg-Trace); Specific Gravity, Urine 1.016 (1.002-1.036); Urobilinogen 0.2 mg/dL (0.2-1.0)
[2017-09-01 07:35] LABS: Bacteria/HPF None Seen HPF (None Seen); Hyaline Casts/LPF 7-10 HYALINE CAST LPF (0-3 Hyaline)
[2017-09-01 07:40] LABS: Pathc Cast-AUWi Flag 3.25 (0-2.49)
[2017-09-01 08:20] LABS: Manual Microscopic Reviewed? No Path Casts Seen; Renal Epithelial 0-3 HPF (0-3); Transitional Epithelial NONE SEEN HPF (0-3)
--- NOTE | 2017-09-01 09:15 | PRG ---
DATE OF SERVICE: 09/01/2017 I am seeing Mr. Borges in the absence of Dr. Marie. We are covering for his patients. Ms. Borges had a GBM resection a few weeks back, complicated by postop infection for which she has a PICC line and she is on IV antibiotics. I saw Ms. Borges this morning in her hospital room. Her family is not around in the hospital. Last recorded fever was 3:30 in the afternoon yesterday at 100.4. White blood cell count is 15.0. Her so dium is 136. When I entered the room, Ms. Borges opened her eyes. She follows me to some extent around the room. She does not verbalize. She does not follow commands. Incision is well approximated. There is no evidence of scalp infection that I can tell. At 86 years old, a glioblastoma resection is difficult to tolerate and postop infection complicated t he picture further. We will continue to support her care here. We will continue her antibiotic ther apy until the time when her family decides that they would like to move on to comfort measures. It i s possible to make a slow but steady recovery from this, but it would be a protracted one and she is certainly not ready for radiation or chemotherapy.
[2017-09-01] MEDS: Losartan 25 MG TAB PO SCH ×2 (10:26→21:28)
[2017-09-01] MEDS: Dofetilide 0.125 MG CAP PO SCH ×3 (10:27→21:28)
--- NOTE | 2017-09-01 13:53 | PDOC.PN ---
- Subjective Encounter Start Date: 09/01/17 Encounter Start Time: 08:20 Pt seen for followup re: acute encephalopathy. Opening eyes and looking around but not speaking, unable to complete ROS. - Objective MAR Reviewed: Yes Vital Signs & Weight: Vital Signs (12 hours) Temp Pulse Resp BP BP Pulse Ox 09/01/17 11:50 99.2 F 81 16 148/75 H 99 09/01/17 07:25 97.8 F 84 16 123/71 99 09/01/17 06:54 124/72 09/01/17 04:00 98.0 F 86 18 124/72 97 Weight Admit Weight 180 lb 5 oz Weight 178 lb 12.8 oz Most Recent Monitor Data Heart Rate from ECG 86 NIBP 125/61 NIBP BP-Mean 84 Respiration from ECG 24 SpO2 97 I&O: 08/31/17 09/01/17 09/02/17 06:59 06:59 07:59 Intake Total 3960 2372 2580 Output Total 4200 1450 1300 Balance -397 322 5808 Result Diagrams: 09/01/17 04:50 09/01/17 04:50 Phys Exam - Physical Examination Constitutional: NAD HEENT: moist MMs Neck: supple Respiratory: clear to auscultation bilateral Cardiovascular: RRR Gastrointestinal: soft, positive bowel sounds Neurological: moves all 4 limbs Psychiatric: normal affect Dx/Plan (1) Encephalopathy Code(s): G93.40 - ENCEPHALOPATHY, UNSPECIFIED Status: Acute Comment: Fluctuating level of consciousness (2) DM type 2 (diabetes mellitus, type 2) Status: Chronic Qualifiers: Diabetes mellitus complication status: with unspecified complications Diabetes mellitus prison insulin use: without prison use Qualified Code( s): E11.8 - Type 2 diabetes mellitus with unspecified complications Comment: Continue accuchecks and insulin sliding scale. (3) Dyslipidemia Code(s): E78.5 - HYPERLIPIDEMIA, UNSPECIFIED Status: Chronic (4) HTN (hypertension) Code(s): I10 - ESSENTIAL (PRIMARY) HYPERTENSION Status: Chronic Qualifiers: Hypertension type: essential hypertension Qualified Code(s): I10 - Essential (primary) hypertension Comment: Monitor vital signs, titrate antihypertensives as needed. - Plan continue antibiotics * . Palliative care team following. Possible deescalation if pt's family wishes to pursue comfort measures. Review of Systems - Medications/Allergies Allergies/Adverse Reactions: Allergies Allergy/AdvReac Type Severity Reaction Status Date / Time adhesive Allergy BURNING Verified 07/25/17 13:31 RASH hydrocodone Allergy Verified 07/25/17 13:31 Penicillins Allergy ORAL Verified 07/25/17 13:31 SWELLING Medications: Current Medications Acetaminophen (Tylenol) 650 mg PO Q4H PRN PRN Reason: Headache/Fever or Pain Last Admin: 08/31/17 16:47 Dose: 650 mg Dofetilide (Tikosyn) 0.125 mg PO TID [facility] Last Admin: 09/01/17 10:27 Dose: 0.125 mg Enalaprilat (Vasotec) 1.25 mg SLOW IVP Q6HR [facility] Last Admin: 09/01/17 06:54 Dose: 1.25 mg Hydralazine HCl (Apresoline) 5 mg SLOW IVP Q2H PRN PRN Reason: SBP GREATER THAN 160 Last Admin: 08/30/17 22:15 Dose: 5 mg Levetiracetam 250 mg/ Sodium (Chloride) 102.5 mls @ 205 mls/hr IVPB BID [facility] Last Admin: 09/01/17 10:26 Dose: 102.5 mls Linezolid 600 mg/ Device 300 mls @ 150 mls/hr IVPB 0100,1300 [facility] Last Admin: 09/01/17 01:51 Dose: 300 mls Sodium Chloride (Normal Saline 0.9%) 1,000 mls @ 75 mls/hr IV .[id number] [facility] Last Admin: 09/01/17 02:15 Dose: Not Given Meropenem 2 gm/ Sodium (Chloride) 100 mls @ 200 mls/hr IVPB Q8HR [facility] Last Admin: 09/01/17 06:54 Dose: 100 mls Losartan Potassium (Cozaar) 50 mg PO BID [facility] Last Admin: 09/01/17 10:26 Dose: 50 mg Metoprolol Succinate (Toprol Xl) 50 mg PO BID [facility] Last Admin: 09/01/17 10:29 Dose: Not Given Ondansetron HCl (Zofran) 4 mg IVP Q6H PRN PRN Reason: Nausea/Vomiting Last Admin: 08/23/17 15:36 Dose: 4 mg Ranolazine (Ranexa) 500 mg PO BID [facility] Last Admin: 09/01/17 10:29 Dose: Not Given Sodium Chloride (Flush - Normal Saline) 10 ml IVF Q12HR [facility] Last Admin: 09/01/17 10:27 Dose: 10 ml Sodium Chloride (Flush - Normal Saline) 10 ml IVF PRN PRN PRN Reason: Saline Flush
[2017-09-02] MEDS: Enalaprilat Dihydrate 1.25 MG/ML VIAL SLOW IVP SCH ×5 (00:42→23:34)
[2017-09-02] MEDS: Linezolid 600 MG in Premix Bag 1 BAG IVPB SCH ×2 (00:43→13:39)
[2017-09-02 04:27] LABS: Anion Gap 11 mmol/L (10-20); BUN (Urea Nitrogen) 15 mg/dL (9.8-20.1); Calc. Creatinine Clearance 71 mL/min (70-130); Calcium 8.6 mg/dL (7.8-10.44); Carbon Dioxide 22 mmol/L (23-31); Chloride 97 mmol/L (98-107); Estimated GFR-MDRD 78; Glucose 167 mg/dL (83-110); Phosphorus 2.4 mg/dL (2.3-4.7); Potassium 4.5 mmol/L (3.5-5.1); Sodium 125 mmol/L (136-145)
[2017-09-02 04:39] LABS: #Eosinphils 0.4 thou/uL (0.0-0.7); #Lymphocytes 2.8 thou/uL (1.20-3.40); #Neutrophils 11.7 thou/uL (1.40-6.50); %Basophils 0.2 % (0.0-1.0); %Eosinophils 2.6 % (0.0-10.0); %Lymphocytes 16.2 % (21.0-51.0); %Monocytes 11.8 % (0.0-10.0); %Neutrophils 69.1 % (42.0-75.0); Mean Corpuscular HGB CONC 33.7 g/dL (32.0-36.0); Mean Corpuscular Hemoglobin 32.2 pg (27.0-31.0); Mean Corpuscular Volume 95.7 fl (81.0-99.0); Mean Platelet Volume 8.5 fL (7.4-10.4); Platelet Count 136 thou/uL (130-400); RBC Distribution Width 13.7 % (11.5-14.5); Red Blood Cell (RBC) Count 3.73 mill/uL (4.20-5.40)
[2017-09-02] MEDS: Sodium Chloride 0.9% 1,000 ML IV SCH ×2 (06:19→11:33)
[2017-09-02] MEDS: Meropenem 2 GM in Sodium Chloride 0.9% 100 ML IVPB SCH ×3 (06:21→21:26)
--- NOTE | 2017-09-02 07:45 | PRG ---
DATE OF SERVICE: 09/02/2017 Ms. Borges is an 86-year-old female, status post GBM resection a few weeks ago, complicated by postop erative infection. She currently has a PICC line. She is on IV antibiotics and that is being contro lled with Dr. Camacho. I saw her in her hospital room this morning. Overnight, there were no acute ev ents. Her blood pressure this morning is 143/67, T-max is 99.4, respirations 16, O2 sat is 98% on ro om air. Ms. Borges can track me around the room with her eyes; however, she does not respond appropr iately to questions and she does not follow commands. Incision is clean, dry, and intact with suture s. We will continue to support her care with antibiotic therapy. The family will decide at some poi nt whether they would like to move her to comfort care measures. If that is the case, I will be supp ortive of their decision. If there are any further questions, please feel free to contact Neurosurge marci.
--- NOTE | 2017-09-02 09:36 | PRG ---
DATE OF SERVICE: 09/02/2017 I saw Ms. Borges in her room this morning. The family is not here and I could not find them. There have been no events to report in the last 24 hours. 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 There was a 99.4 yesterday afternoon. When I come into the room Ms. Borges opens h er eyes. She looks at me and seems to be following my gaze, but she is not following commands for me at all today. Right side moves a little bit faster than the left, but there is motion on both sides . This morning, sodium is 125. Her white blood cell count is 17,000. If they want to give Ms. 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 Dr. Camacho is helping with managing her antibiotics. Her white count is a bit up. Her neurological exam ination is stable from yesterday. I will hold off on any imaging of the brain until I speak directly with the family. I do not think she is recovering quite as fast as we had hoped. She is certainly not ready for radiation or chemotherapy.
[2017-09-02] MEDS: Losartan 25 MG TAB PO SCH ×2 (10:29→21:27)
--- NOTE | 2017-09-02 10:56 | PDOC.PN ---
- Subjective Encounter Start Date: 09/02/17 Encounter Start Time: 10:00 -: non-verbal - Objective MAR Reviewed: Yes Vital Signs & Weight: Vital Signs (12 hours) Temp Pulse Resp BP BP Pulse Ox 09/02/17 08:00 99.2 F 80 16 09/02/17 06:20 143/67 H 09/02/17 05:04 98 09/02/17 04:43 99.2 F 80 16 143/67 H 98 09/02/17 00:42 168/70 H 09/02/17 00:29 98.5 F 85 16 168/70 H 98 Weight Admit Weight 180 lb 5 oz Weight 178 lb 12.8 oz Most Recent Monitor Data Heart Rate from ECG 86 NIBP 125/61 NIBP BP-Mean 84 Respiration from ECG 24 SpO2 97 I&O: 09/01/17 09/02/17 09/03/17 05:59 06:59 06:59 Intake Total Output Total Balance Result Diagrams: 09/02/17 04:01 09/02/17 04:01 Phys Exam - Physical Examination non toxic, nonverbal HEENT: PERRLA, sclera anicteric Neck: supple, full ROM Respiratory: clear to auscultation bilateral Cardiovascular: RRR Gastrointestinal: soft, non-tender Musculoskeletal: no edema tracks, non verbal Skin: no rash Deviation from normal: idris to cranium Dx/Plan (1) Encephalopathy Code(s): G93.40 - ENCEPHALOPATHY, UNSPECIFIED Status: Acute Comment: Fluctuating level of consciousness (2) Facial cellulitis Code(s): L03.211 - CELLULITIS OF FACE Status: Acute (3) Post Surgical Infection Status: Acute Comment: s/p washout 08/24/17.Cx +ve for MRSA (4) DM type 2 (diabetes mellitus, type 2) Status: Chronic Qualifiers: Diabetes mellitus complication status: with unspecified complications Diabetes mellitus halfway insulin use: without manager intermediate use Qualified Code( s): E11.8 - Type 2 diabetes mellitus with unspecified complications Comment: Continue accuchecks and insulin sliding scale. (5) Dyslipidemia Code(s): E78.5 - HYPERLIPIDEMIA, UNSPECIFIED Status: Chronic (6) Glioblastoma Code(s): C71.9 - MALIGNANT NEOPLASM OF BRAIN, UNSPECIFIED Status: Chronic Comment: h/o recent resection of mass (7) HTN (hypertension) Code(s): I10 - ESSENTIAL (PRIMARY) HYPERTENSION Status: Chronic Qualifiers: Hypertension type: essential hypertension Qualified Code(s): I10 - Essential (primary) hypertension Comment: Monitor vital signs, titrate antihypertensives as needed. - Plan cont current plan of care, plan discussed w/ family, continue antibiotics current mgmt as above * .
[2017-09-02] MEDS: Dofetilide 0.125 MG CAP PO SCH ×3 (11:38→20:18)
--- NOTE | 2017-09-02 16:03 | PRG ---
DATE OF SERVICE: 09/02/2017 SUBJECTIVE: Much more alert today. She establishes eye contact. She said her name when I asked. S he was able to follow some commands and smiled. OBJECTIVE: VITAL SIGNS: Showed T-max 99.2, blood pressure 170/81, pulse 80. EYES: Ocular movements are conjugate. Sclerae are white. Pupils are equal and reactive. LUNGS: With symmetric air entry. HEART: S1 and S2, regular rate. ABDOMEN: Soft. LABORATORY DATA: White cell count 17,000, hemoglobin 12, platelets 136, 69% neutrophils. Chemistrie s not remarkable except for some hyponatremia and blood cultures and urine culture negative from 02/2018. 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 She is also on Zyvox for the MRSA infection. Marked improvement since last t angelica I saw her. Continue current regimen. Plan to discontinue meropenem in the next 2-3 days.
[2017-09-02] MEDS: hydrALAZINE 20 MG/ML VIAL SLOW IVP PRN (20:25)
[2017-09-03] MEDS: Linezolid 600 MG in Premix Bag 1 BAG IVPB SCH ×2 (01:17→13:40)
[2017-09-03] MEDS: Enalaprilat Dihydrate 1.25 MG/ML VIAL SLOW IVP SCH ×3 (05:24→18:49)
[2017-09-03] MEDS: Meropenem 2 GM in Sodium Chloride 0.9% 100 ML IVPB SCH ×3 (05:24→21:06)
[2017-09-03 05:58] LABS: Anion Gap 11 mmol/L (10-20); BUN (Urea Nitrogen) 17 mg/dL (9.8-20.1); Calc. Creatinine Clearance 69 mL/min (70-130); Calcium 8.5 mg/dL (7.8-10.44); Carbon Dioxide 21 mmol/L (23-31); Chloride 96 mmol/L (98-107); Estimated GFR-MDRD 74; Glucose 130 mg/dL (83-110); Magnesium 2.3 mg/dL (1.6-2.6); Phosphorus 2.5 mg/dL (2.3-4.7); Potassium 4.4 mmol/L (3.5-5.1); Sodium 124 mmol/L (136-145)
[2017-09-03 06:04] LABS: Band 2 % (5-11); Eosinophils 2 % (0-10); Lymphocytes 14 % (21-51); MDiff Complete? YES; Mean Corpuscular HGB CONC 33.5 g/dL (32.0-36.0); Mean Corpuscular Hemoglobin 31.8 pg (27.0-31.0); Mean Corpuscular Volume 94.9 fl (81.0-99.0); Mean Platelet Volume 8.2 fL (7.4-10.4); Metamyelocyte 1 % (0-0); Monocytes 18 % (0-10); Neutrophil 63 % (42-75); Nucleated RBC 1 % (0); PLT Morphology Comment Appears Adequate; Platelet Count 163 thou/uL (130-400); RBC Distribution Width 14.1 % (11.5-14.5); Red Blood Cell (RBC) Count 3.76 mill/uL (4.20-5.40); White Blood Cell (WBC) Count 14.7 thou/uL (4.8-10.8)
--- NOTE | 2017-09-03 07:16 | PRG ---
DATE OF SERVICE: 09/03/2017 I saw Ms. Borges in her hospital room this morning. She is an 86-year-old woman with a glioblastoma resection recently who had a postoperative infection and is recovering from that slowly. She is not ready for chemotherapy or radiation yet. I saw Ms. Borges this morning in her hospital room. I said hello to her and she responded to me with voice today. She said a word, but that was it. I did not get her to reliably follow commands. She does look at me around the room and I do not see any lateralizing motor deficits or neglect. Her so dium this morning is 124. White blood cell count is 14.7, which is down from yesterday. Neurosurgery team is hopeful that she could slowly make some recovery from this. She is certainly no t ready for any adjuvant therapy for tumor and we will continue to treat her aggressively as long as the family wants to do so.
[2017-09-03] MEDS: Dofetilide 0.125 MG CAP PO SCH ×3 (09:10→20:24)
[2017-09-03] MEDS: Losartan 25 MG TAB PO SCH ×2 (09:11→20:27)
[2017-09-03] MEDS: Sodium Chloride 0.9% 1,000 ML IV SCH ×2 (09:11→21:06)
--- NOTE | 2017-09-03 10:42 | PRG ---
DATE OF SERVICE: 09/03/2017 Ms. Borges is an 86-year-old female that is status post GBM removal. The daughter was in the room th morning and had questions about when chemotherapy and radiation treatment would be. She is not re suad for that medically at this point. She is able to follow me around the room this morning with her eyes. She is able to say a couple of words, but the words were jumbled and did not make sense. She was able to follow my commands by squeezing her left hand and wiggling her toes. White blood cell c ount this morning is 14.7. I do not see any lateralizing motor deficits or neglect. Vital signs see ms to be stable and it is hopeful that she could have some recovery, but it would be slow. If there are any further questions, please feel free to contact Neurosurgery.
--- NOTE | 2017-09-03 12:31 | PDOC.PN ---
- Subjective Encounter Start Date: 09/03/17 Encounter Start Time: 12:30 -: non-verbal Subjective: PATIENT REPORTEDLY SPOKE WITH NSURG PA. FAMILY AT BEDSIDE SHE IS MORE ALERT -: BUT MOSTLY NONVERBAL - Objective MAR Reviewed: Yes Vital Signs & Weight: Vital Signs (12 hours) Temp Pulse Resp BP BP Pulse Ox 09/03/17 07:58 98.5 F 83 16 110/63 95 09/03/17 05:24 123/66 09/03/17 04:00 98.8 F 87 18 123/66 96 Weight Admit Weight 180 lb 5 oz Weight 178 lb 12.8 oz Most Recent Monitor Data Heart Rate from ECG 86 NIBP 125/61 NIBP BP-Mean 84 Respiration from ECG 24 SpO2 97 I&O: 09/02/17 09/03/17 09/04/17 06:59 06:59 06:59 Intake Total 3700 Output Total 2850 Balance 850 Result Diagrams: 09/03/17 05:21 09/03/17 05:21 Phys Exam - Physical Examination Constitutional: NAD HEENT: PERRLA, moist MMs, sclera anicteric Neck: supple Respiratory: clear to auscultation bilateral Cardiovascular: RRR Gastrointestinal: soft, no distention, positive bowel sounds Musculoskeletal: no edema NON VERBAL DURING MY EXAM, BUT TRACKS WELL Skin: no rash Dx/Plan (1) Encephalopathy Code(s): G93.40 - ENCEPHALOPATHY, UNSPECIFIED Status: Acute Comment: Fluctuating level of consciousness (2) Facial cellulitis Code(s): L03.211 - CELLULITIS OF FACE Status: Acute (3) Post Surgical Infection Status: Acute Comment: s/p washout 08/24/17.Cx +ve for MRSA (4) DM type 2 (diabetes mellitus, type 2) Status: Chronic Qualifiers: Diabetes mellitus complication status: with unspecified complications Diabetes mellitus assisted insulin use: without assisted use Qualified Code( s): E11.8 - Type 2 diabetes mellitus with unspecified complications Comment: Continue accuchecks and insulin sliding scale. (5) Dyslipidemia Code(s): E78.5 - HYPERLIPIDEMIA, UNSPECIFIED Status: Chronic (6) Glioblastoma Code(s): C71.9 - MALIGNANT NEOPLASM OF BRAIN, UNSPECIFIED Status: Chronic Comment: h/o recent resection of mass (7) HTN (hypertension) Code(s): I10 - ESSENTIAL (PRIMARY) HYPERTENSION Status: Chronic Qualifiers: Hypertension type: essential hypertension Qualified Code(s): I10 - Essential (primary) hypertension Comment: Monitor vital signs, titrate antihypertensives as needed. - Plan cont current plan of care, plan discussed w/ family, continue antibiotics, PT/OT , speech therapy SLIGHT IMPROVMENT, CONDITION GUARDED, CONTINUE REGIMEN * .
[2017-09-04 04:33] LABS: Anion Gap 12 mmol/L (10-20); BUN (Urea Nitrogen) 17 mg/dL (9.8-20.1); Calc. Creatinine Clearance 72 mL/min (70-130); Calcium 8.7 mg/dL (7.8-10.44); Carbon Dioxide 23 mmol/L (23-31); Chloride 97 mmol/L (98-107); Estimated GFR-MDRD 79; Glucose 132 mg/dL (83-110); Magnesium 2.4 mg/dL (1.6-2.6); Phosphorus 2.5 mg/dL (2.3-4.7); Potassium 4.5 mmol/L (3.5-5.1); Sodium 127 mmol/L (136-145)
[2017-09-04 04:57] LABS: Band 7 % (5-11); Eosinophils 1 % (0-10); Hemoglobin 11.9 g/dL (12.0-16.0); Lymphocytes 10 % (21-51); MDiff Complete? YES; Mean Corpuscular HGB CONC 33.2 g/dL (32.0-36.0); Mean Corpuscular Hemoglobin 31.6 pg (27.0-31.0); Mean Corpuscular Volume 95.2 fl (81.0-99.0); Mean Platelet Volume 7.9 fL (7.4-10.4); Monocytes 9 % (0-10); Neutrophil 73 % (42-75); PLT Morphology Comment Appears Adequate; Platelet Count 167 thou/uL (130-400); RBC Distribution Width 13.9 % (11.5-14.5); RBC Morphology Normal; Red Blood Cell (RBC) Count 3.76 mill/uL (4.20-5.40); White Blood Cell (WBC) Count 12.8 thou/uL (4.8-10.8)
[2017-09-04] MEDS: Meropenem 2 GM in Sodium Chloride 0.9% 100 ML IVPB SCH ×2 (06:00→14:02)
[2017-09-04] MEDS: hydrALAZINE 20 MG/ML VIAL SLOW IVP PRN (06:01)
[2017-09-04] MEDS: Enalaprilat Dihydrate 1.25 MG/ML VIAL SLOW IVP SCH ×5 (06:01→23:59)
--- NOTE | 2017-09-04 07:08 | PRG ---
DATE OF SERVICE: 09/04/2017 I saw Ms. Borges in her hospital room this morning. She has been afebrile the last 24 hours. Other vital signs have been stable. When I entered the room this morning, Ms. Borges's eyes open and she b egins to try to speak. She is making sounds, but not words that are comprehensible. She moves all 4 extremities. She is not following commands. She does follow me with her gaze. Her white count is dropping, it is at 12.8, her sodium is coming up at 127. Ms. Borges is slowly improving over the last few days. She is still not ready for adjuvant therapy f or her tumor, but hopefully we are making some progress in getting the infection under control. We w ill continue to follow her while she is in the hospital.
[2017-09-04] MEDS: Losartan 25 MG TAB PO SCH ×2 (08:55→21:31)
[2017-09-04] MEDS: Dofetilide 0.125 MG CAP PO SCH ×3 (08:55→21:31)
--- NOTE | 2017-09-04 10:42 | PRG ---
DATE OF SERVICE: 09/04/2017 This is an inpatient progress note. Ms. Bogres is now more than 10 days out for a cranial wound revi nayeli. Infectious Disease is continuing to manage her methicillin-resistant Staphylococcus aureus inf ection via PICC line. The patient is a little bit more interactive today on my exam. Her sodium con tinues to improve. She is currently at 127. Her white count is also trending downward. We will con tinue to have our medical colleagues continue to manage the patient's sodium level and medical issues . Her incision is clean, dry, intact and closed with interrupted Vicryl sutures. We will keep these in at least 3 weeks postop. The case management has let me know that the patient's family has decid ed they would like a PEG tube placement and we will defer to our medical colleagues to help arrange t his. Palliative Care is also following the patient. The patient attempts to open her eyes to the ex aminer and when her eyes are open she is able to speak words, but these do not make sense. She is un able to follow commands formally. There is no family at the bedside currently to update. Again, Palliative and Medical Care will help manage the patient's medical issues, but we will continue to follow. Obviously, the patient is not r shasha at this time for chemotherapy and radiation, but again she is slowly improving. I think right n ow what she needs is time. Please call with any changes or questions in patient's neurologic status.
--- NOTE | 2017-09-04 13:04 | PDOC.PN ---
- Subjective Encounter Start Date: 09/04/17 Encounter Start Time: 13:02 Subjective: non verbal this am. daughter at bedside. NO decision on PEG or placement -: has been made. - Objective MAR Reviewed: Yes Vital Signs & Weight: Vital Signs (12 hours) Temp Pulse Resp BP BP Pulse Ox 09/04/17 12:17 121/66 09/04/17 12:00 99.7 F H 84 14 121/66 95 09/04/17 08:55 99.7 F H 97 16 96 09/04/17 07:46 99.7 F H 97 16 116/61 96 09/04/17 06:01 78 168/76 H 09/04/17 04:36 97.9 F 78 16 168/76 H 98 Weight Admit Weight 180 lb 5 oz Weight 178 lb 12.8 oz Most Recent Monitor Data Heart Rate from ECG 86 NIBP 125/61 NIBP BP-Mean 84 Respiration from ECG 24 SpO2 97 I&O: 09/03/17 09/04/17 09/05/17 06:59 06:59 06:59 Intake Total 3700 1680 Output Total 2850 2825 Balance 850 -1145 Result Diagrams: 09/04/17 03:56 09/04/17 03:56 Phys Exam - Physical Examination Constitutional: NAD HEENT: PERRLA, moist MMs, sclera anicteric dobhoff in place Neck: supple, full ROM Respiratory: no wheezing, no rhonchi Cardiovascular: RRR Gastrointestinal: soft, no distention Musculoskeletal: no edema tracks with gaze Dx/Plan (1) Encephalopathy Code(s): G93.40 - ENCEPHALOPATHY, UNSPECIFIED Status: Acute Comment: Fluctuating level of consciousness (2) Facial cellulitis Code(s): L03.211 - CELLULITIS OF FACE Status: Acute (3) Post Surgical Infection Status: Acute Comment: s/p washout 08/24/17.Cx +ve for MRSA (4) DM type 2 (diabetes mellitus, type 2) Status: Chronic Qualifiers: Diabetes mellitus complication status: with unspecified complications Diabetes mellitus intermediate manager insulin use: without intermediate manager use Qualified Code( s): E11.8 - Type 2 diabetes mellitus with unspecified complications Comment: Continue accuchecks and insulin sliding scale. (5) Dyslipidemia Code(s): E78.5 - HYPERLIPIDEMIA, UNSPECIFIED Status: Chronic (6) Glioblastoma Code(s): C71.9 - MALIGNANT NEOPLASM OF BRAIN, UNSPECIFIED Status: Chronic Comment: h/o recent resection of mass (7) HTN (hypertension) Code(s): I10 - ESSENTIAL (PRIMARY) HYPERTENSION Status: Chronic Qualifiers: Hypertension type: essential hypertension Qualified Code(s): I10 - Essential (primary) hypertension Comment: Monitor vital signs, titrate antihypertensives as needed. - Plan cont current plan of care, plan discussed w/ family, continue antibiotics FAMILY CONTINUING TO EXPLORE PLACEMENT...LTAC V. SNF V. HOSPICE -: NO DEFINITIVE DECISION ON PEG YET. * .
[2017-09-04] MEDS: Linezolid 600 MG in Premix Bag 1 BAG IVPB SCH ×2 (14:02)
--- NOTE | 2017-09-04 15:08 | ULT ---
BILATERAL LOWER EXTREMITY VENOUS DUPLEX SONOGRAM: History Bilateral leg pain and edema. FINDINGS: Each common femoral vein and greater saphenous junction, deep femoral, femoral, popliteal, and document control manager ior tibial vein were evaluated. There is good color and spectral Doppler, compression, and augmentat ion. IMPRESSION: No sonographic evidence of deep vein thrombosis within either lower extremity. POS: [facility]
[2017-09-04] MEDS: Sodium Chloride 0.9% 1,000 ML IV SCH ×2 (21:31→23:57)
--- NOTE | 2017-09-04 21:38 | PRG ---
DATE OF SERVICE: 09/04/2017 SUBJECTIVE: Awake, establishes eye contact, but no replies to questions, does not follow commands. Ocular movements are conjugate. The craniotomy site appears normal. Dry and no inflammatory changes . OBJECTIVE: LUNGS: Clear to auscultation and percussion. CARDIOVASCULAR: S1, S2, regular rate. ABDOMEN: Soft and not distended. EXTREMITIES: She is able to move extremities. VITAL SIGNS: T-max 99.8, blood pressure 129/63, pulse 81. LABORATORY DATA: White cell count 12.8, hemoglobin 11.9, platelets 167, 72% neutrophils. Sodium 127 , creatinine 0.7. Two sets of blood cultures from 08/31/2017 are negative. She had a venogram today , which showed no evidence of deep vein thrombosis. ASSESSMENT AND DISCUSSION: Glioblastoma multiforme with postop infection secondary to MRSA, some con cerns about possible superimposed infectious process and meropenem has been started, but the patient has improved and I am not sure that she truly had an additional infection. We will go ahead and disc ontinue meropenem, maintain linezolid. Decision to be made by family members regarding further care. If they are going to go for hospice care or continuation of aggressive management, which would prob ably then require gastrostomy tube placement. Again, I discussed with the family that glioblastoma i n elderly folks have short survival time, mostly due to the inability to provide them with aggressive management due to comorbidities.
[2017-09-05] MEDS: Enalaprilat Dihydrate 1.25 MG/ML VIAL SLOW IVP SCH ×3 (05:45→18:58)
[2017-09-05 06:30] LABS: Band 7 % (5-11); Eosinophils 2 % (0-10); Hemoglobin 11.6 g/dL (12.0-16.0); Lymphocytes 27 % (21-51); MDiff Complete? YES; Mean Corpuscular HGB CONC 33.6 g/dL (32.0-36.0); Mean Corpuscular Hemoglobin 32.1 pg (27.0-31.0); Mean Corpuscular Volume 95.5 fl (81.0-99.0); Mean Platelet Volume 7.8 fL (7.4-10.4); Monocytes 14 % (0-10); Neutrophil 50 % (42-75); PLT Morphology Comment Appears Adequate; Platelet Count 185 thou/uL (130-400); RBC Distribution Width 14.4 % (11.5-14.5); Red Blood Cell (RBC) Count 3.61 mill/uL (4.20-5.40)
[2017-09-05 06:38] LABS: Anion Gap 10 mmol/L (10-20); BUN (Urea Nitrogen) 18 mg/dL (9.8-20.1); Calc. Creatinine Clearance 76 mL/min (70-130); Calcium 8.3 mg/dL (7.8-10.44); Carbon Dioxide 20 mmol/L (23-31); Chloride 101 mmol/L (98-107); Estimated GFR-MDRD 83; Glucose 133 mg/dL (83-110); Magnesium 2.6 mg/dL (1.6-2.6); Phosphorus 2.5 mg/dL (2.3-4.7); Potassium 4.2 mmol/L (3.5-5.1); Sodium 127 mmol/L (136-145)
[2017-09-05] MEDS: Losartan 25 MG TAB PO SCH ×2 (07:53→20:03)
[2017-09-05] MEDS: Dofetilide 0.125 MG CAP PO SCH ×3 (08:47→20:03)
--- NOTE | 2017-09-05 10:36 | PRG ---
DATE OF SERVICE: 09/05/2017 I saw Ms. Borges with her family in the room this morning. They are making decisions about feeding t ube placement and have not finalized yet. Ms. Borges is more awake. She says a phrase or two to me. She does not follow commands. She opens her eyes. Her neurological examination is slightly better than it was in previous days. Her white blood cell count is down to 10.0 and her sodium is 127. Ms. Borges's family is going to decide on a feeding tube placement. She is not ready for radiation o r adjuvant therapy for her brain tumor and she is still fighting off her infection. Ultrasound of th e legs was negative for DVT yesterday. We will continue to follow her.
--- NOTE | 2017-09-05 10:55 | PRG ---
DATE OF SERVICE: 09/05/2017 SUBJECTIVE: Ms. Borges is an 86-year-old female who I saw in her room this morning. This morning, h er sodium is 127. Overnight, there have been no new neurologic deficits. She is able to wiggle her toes and move her arms. This morning, she is somewhat more awake and she is able to respond to some of my questions, 50% of what she says is appropriate to my questions. Family was in the room this mo rning and I spoke to them. They would like to hold off on a PEG tube for tube feeds because they are optimistic that she will be eating food with a fork in about a week. Venogram done yesterday was ne bridget for deep vein thrombosis in bilateral lower extremities. If there are any further questions, please feel free to contact Neurosurgery. She can continue to work with Physical Therapy throughout the week and Occupational Therapy.
--- NOTE | 2017-09-05 11:04 | PDOC.PN ---
- Subjective Encounter Start Date: 09/05/17 Encounter Start Time: 11:03 Subjective: more alert and talkative - Objective Vital Signs & Weight: Vital Signs (12 hours) Temp Pulse Resp BP BP Pulse Ox 09/05/17 08:00 99.1 F 82 20 09/05/17 07:40 99.1 F 82 20 139/73 98 09/05/17 05:45 137/69 09/05/17 03:18 97.6 F 76 14 137/69 97 09/04/17 23:59 130/69 09/04/17 23:52 98.9 F 81 18 130/69 97 Weight Admit Weight 180 lb 5 oz Weight 178 lb 12.8 oz Most Recent Monitor Data Heart Rate from ECG 86 NIBP 125/61 NIBP BP-Mean 84 Respiration from ECG 24 SpO2 97 I&O: 09/04/17 09/05/17 09/06/17 06:59 06:59 06:59 Intake Total 1680 2475 Output Total 2825 850 Balance -1145 1625 Result Diagrams: 09/05/17 05:31 09/05/17 05:31 Phys Exam - Physical Examination Constitutional: NAD HEENT: PERRLA, moist MMs, sclera anicteric Neck: supple, full ROM Respiratory: no wheezing, no rhonchi Cardiovascular: RRR Gastrointestinal: soft, non-tender Musculoskeletal: no edema Neurological: non-focal, moves all 4 limbs Psychiatric: normal affect Skin: no rash Dx/Plan (1) Encephalopathy Code(s): G93.40 - ENCEPHALOPATHY, UNSPECIFIED Status: Acute Comment: Fluctuating level of consciousness (2) Facial cellulitis Code(s): L03.211 - CELLULITIS OF FACE Status: Acute (3) Post Surgical Infection Status: Acute Comment: s/p washout 08/24/17.Cx +ve for MRSA (4) DM type 2 (diabetes mellitus, type 2) Status: Chronic Qualifiers: Diabetes mellitus fci insulin use: without fci use Diabetes mellitus complication status: with unspecified complications Qualified Code(s) : E11.8 - Type 2 diabetes mellitus with unspecified complications Comment: Continue accuchecks and insulin sliding scale. (5) Dyslipidemia Code(s): E78.5 - HYPERLIPIDEMIA, UNSPECIFIED Status: Chronic (6) Glioblastoma Code(s): C71.9 - MALIGNANT NEOPLASM OF BRAIN, UNSPECIFIED Status: Chronic Comment: h/o recent resection of mass (7) HTN (hypertension) Code(s): I10 - ESSENTIAL (PRIMARY) HYPERTENSION Status: Chronic Qualifiers: Hypertension type: essential hypertension Qualified Code(s): I10 - Essential (primary) hypertension Comment: Monitor vital signs, titrate antihypertensives as needed. - Plan cont current plan of care, plan discussed w/ family, continue antibiotics, PT/OT condition improved. PT for ROM exercises. leukocytosis resolved * .
[2017-09-05] MEDS: Linezolid 600 MG in Premix Bag 1 BAG IVPB SCH ×2 (12:16)
[2017-09-05] MEDS: Sodium Chloride 0.9% 1,000 ML IV SCH (12:23)
--- NOTE | 2017-09-05 13:16 | PRG ---
DATE OF SERVICE: 09/05/2017 HISTORY: Ms. Borges is now postoperative day #12, having undergone incisional wound washout with Dr. Marie. Overall, the patient appears to be improving. She is much more awake and alert today and i s actually interactive and attempts to make conversation. Her son is at bedside with multiple questi ons regarding the patient's next step of patient's care. Apparently there was some miscommunication between providers regarding patient's PEG tube placement. The patient's son states that they have no t yet decided how they would like to proceed with this. Case management as well as a medical physici ans have been involved. The patient had a venogram of the bilateral lower extremities yesterday with no evidence of DVT in the bilateral lower extremities. Patient's white blood cell count is now at a normal level at 10. Her sodium remains low, but stable at 27. Infectious Disease is helping manage d the patient's MRSA infection and she is on linezolid. The patient is awake, alert, and intermitten tly appropriate. She attempts to follow commands in the bilateral upper extremities and is able to w iggle the toes to command on the left. Again, the patient's son and brother were updated at bedside, but the question remains now what is the patient's discharge. They are considering LTAC versus SNF versus hospice, but may be leaning more towards LTAC, should the patient continue to improve. I woul d like the patient's sutures to stay in at least 3 weeks postop, as she has a facility, they can [place] ve those there and we will make sure that this is coordinated. Again, the patient's family was updat ed to their satisfaction able to discuss further issues with medical services as well as make a decis ion on patient further care. Obviously, the patient is not yet ready for chemotherapy and radiation. She will need to improve medically. Please call with any questions or changes in patient's neurolo gic status.
[2017-09-06] MEDS: Enalaprilat Dihydrate 1.25 MG/ML VIAL SLOW IVP SCH ×5 (00:06→23:44)
[2017-09-06] MEDS: Sodium Chloride 0.9% 1,000 ML IV SCH ×2 (04:31→17:14)
[2017-09-06 04:46] LABS: #Basophils 0.1 thou/uL (0.0-0.2); #Eosinphils 0.2 thou/uL (0.0-0.7); #Lymphocytes 1.6 thou/uL (1.20-3.40); #Monocytes 1.5 thou/uL (0.11-0.59); #Neutrophils 8.8 thou/uL (1.40-6.50); %Basophils 0.5 % (0.0-1.0); %Eosinophils 1.7 % (0.0-10.0); %Lymphocytes 13.5 % (21.0-51.0); %Monocytes 12.4 % (0.0-10.0); Mean Corpuscular HGB CONC 33.5 g/dL (32.0-36.0); Mean Corpuscular Hemoglobin 32.1 pg (27.0-31.0); Mean Platelet Volume 7.5 fL (7.4-10.4); Platelet Count 215 thou/uL (130-400); RBC Distribution Width 14.8 % (11.5-14.5); Red Blood Cell (RBC) Count 3.43 mill/uL (4.20-5.40); White Blood Cell (WBC) Count 12.2 thou/uL (4.8-10.8)
[2017-09-06 05:11] LABS: Anion Gap 12 mmol/L (10-20); BUN (Urea Nitrogen) 18 mg/dL (9.8-20.1); Calc. Creatinine Clearance 78 mL/min (70-130); Calcium 8.3 mg/dL (7.8-10.44); Carbon Dioxide 19 mmol/L (23-31); Chloride 103 mmol/L (98-107); Estimated GFR-MDRD 88; Glucose 119 mg/dL (83-110); Magnesium 2.5 mg/dL (1.6-2.6); Phosphorus 2.3 mg/dL (2.3-4.7); Potassium 4.3 mmol/L (3.5-5.1); Sodium 130 mmol/L (136-145)
--- NOTE | 2017-09-06 07:09 | PRG ---
DATE OF SERVICE: 09/06/2017 I saw Ms. Borges in her hospital room this morning. I spoke with the family yesterday. They are evelyn ing a decision on feeding tube placement. The nursing staff tells me arrangements are being made for that to be done today so they have decided to go ahead. Vital signs have been stable. I do not see a fever recorded. On neurological examination Ms. Borges opens her eyes when I say her first name. She is purposeful with 4 extremities and catches my gaze, but I can get her to follow commands. Th is is stable from yesterday. My plan for Ms. Borges is a feeding tube placement. When she is strong enough, she may be a candidat e for adjuvant therapy for her brain tumor, but right now she is still fighting off infection.
[2017-09-06] MEDS: Dofetilide 0.125 MG CAP PO SCH ×3 (08:55→20:42)
[2017-09-06] MEDS: Losartan 25 MG TAB PO SCH ×2 (08:56→20:41)
--- NOTE | 2017-09-06 11:54 | PRG ---
DATE OF SERVICE: 09/06/2017 Ms. Borges is an 87-year-old female that I saw in her room this morning. The family has decided to g o ahead with feeding tube placement. On her neuro exam this morning she is able to localize purposel y in all 4 extremities. She is not following my commands this morning. There are no new neurologic deficits on exam. Our plan is for Ms. Borges to continue healing and may continue receiving antibiot ics to fight off infection. If there are any further questions, please feel free to contact Neurosurgery.
--- NOTE | 2017-09-06 12:05 | PDOC.PN ---
- Subjective Encounter Start Date: 09/06/17 Encounter Start Time: 11:15 -: non-verbal Subjective: more somnolent today, no verbal interaction. - Objective MAR Reviewed: Yes Vital Signs & Weight: Vital Signs (12 hours) Temp Pulse Resp BP BP Pulse Ox 09/06/17 11:51 98.6 F 78 16 131/69 94 L 09/06/17 08:00 99.6 F 78 20 09/06/17 07:45 99.6 F 78 20 127/66 96 09/06/17 04:42 98.9 F 79 18 123/66 97 09/06/17 04:31 151/70 H 09/06/17 00:06 151/70 H 09/06/17 00:05 98.3 F 81 16 151/70 H 97 Weight Admit Weight 180 lb 5 oz Weight 178 lb 12.8 oz Most Recent Monitor Data Heart Rate from ECG 86 NIBP 125/61 NIBP BP-Mean 84 Respiration from ECG 24 SpO2 97 I&O: 09/05/17 09/06/17 09/07/17 06:59 06:59 06:59 Intake Total 2475 3410 Output Total 850 2350 Balance 1625 1060 Result Diagrams: 09/06/17 04:09 09/06/17 04:09 Phys Exam - Physical Examination Constitutional: NAD HEENT: moist MMs dobhoff in place Neck: supple Respiratory: no wheezing, no rhonchi Cardiovascular: RRR Gastrointestinal: soft, non-tender Musculoskeletal: edema present Deviation from normal: somnolent Skin: no rash Deviation from normal: sutures rt cranium Dx/Plan (1) Encephalopathy Code(s): G93.40 - ENCEPHALOPATHY, UNSPECIFIED Status: Acute Comment: Fluctuating level of consciousness (2) Facial cellulitis Code(s): L03.211 - CELLULITIS OF FACE Status: Acute (3) Post Surgical Infection Status: Acute Comment: s/p washout 08/24/17.Cx +ve for MRSA (4) DM type 2 (diabetes mellitus, type 2) Status: Chronic Qualifiers: Diabetes mellitus usp insulin use: without intermediate card tender use Diabetes mellitus complication status: with unspecified complications Qualified Code(s) : E11.8 - Type 2 diabetes mellitus with unspecified complications Comment: Continue accuchecks and insulin sliding scale. (5) Dyslipidemia Code(s): E78.5 - HYPERLIPIDEMIA, UNSPECIFIED Status: Chronic (6) Glioblastoma Code(s): C71.9 - MALIGNANT NEOPLASM OF BRAIN, UNSPECIFIED Status: Chronic Comment: h/o recent resection of mass (7) HTN (hypertension) Code(s): I10 - ESSENTIAL (PRIMARY) HYPERTENSION Status: Chronic Qualifiers: Hypertension type: essential hypertension Qualified Code(s): I10 - Essential (primary) hypertension Comment: Monitor vital signs, titrate antihypertensives as needed. - Plan cont current plan of care, continue antibiotics appreciate input from ID and Neurosurgery. PEG per GS. * .
--- NOTE | 2017-09-06 13:46 | CON ---
DATE OF CONSULTATION: 09/06/2017 REASON FOR ADMISSION/CHIEF COMPLAINT: Dysphagia. HISTORY OF PRESENT ILLNESS: The patient is an 87-year-old female who just had a birthday today who u nderwent a craniotomy on 08/02/2017 for a glioblastoma. She was found on the floor at home on the with a fever. She was readmitted and eventually had an I&D of the wound, found to have been in a subcutaneous infection, that grew out MRSA. She has been in the hospital slowly recovering, but is u nable to take oral nutrition. She has been on a feeding tube and requires a PEG for nutrition at the halfway. PAST MEDICAL HISTORY: Atrial arrhythmias, hypertension, hyperlipidemia. PAST SURGICAL HISTORY: She had a carotid endarterectomy, pacemaker. She has had a cardiac ablation. She has had a craniotomy and a repeat craniotomy. MEDICATIONS: She is on alendronate 70 weekly, aspirin 81 daily, hydralazine 10 t.i.d., losartan 50 b .i.d., metoprolol 25 b.i.d., Zetia 10 daily, Ranexa 500 b.i.d., vitamin D3 daily, Tikosyn 125 mcg 3 t imes a day. ALLERGIES: HYDROCODONE and PENICILLIN. FAMILY HISTORY: Unknown. SOCIAL HISTORY: She is . No tobacco or alcohol. PHYSICAL EXAMINATION: GENERAL: She is awake, but does not appear to respond to questions. HEENT: She has a healing incision on the right just above the forehead. There is no cellulitis or f luctuance. She has a feeding tube Dobbhoff tube in her naris. LUNGS: Clear. HEART: Regular rate and rhythm. ABDOMEN: Soft, nontender, no palpable masses. No scars. EXTREMITIES: Unremarkable. LABORATORY AND X-RAY FINDINGS: Her white count is 12.2, H&H 11 and 32, platelet count of 215. Sodiu m 130, potassium 4.3, chloride 103, CO2 of 19, glucose 119, creatinine 0.6, PT of 13, INR 1, PTT of 3 3. ASSESSMENT: Dysphagia. PLAN: Percutaneous endoscopic gastrostomy. I discussed it with her. There was no family here, so w e will have to discuss with the family and if we get a consent we will plan on putting it in tomorrow .
[2017-09-06] MEDS: Linezolid 600 MG in Premix Bag 1 BAG IVPB SCH (15:46)
--- NOTE | 2017-09-06 16:36 | PRG ---
DATE OF SERVICE: 09/06/2017 SUBJECTIVE: No change in her mental state since last visit. She opens her eyes and will attempt yair e replies, but she never completes her attempt. She was able to produce one monosyllabic reply, whic h had no meaning to it. She will establish eye contact briefly. OBJECTIVE: VITAL SIGNS: T-max 99.6, BP 130/69, pulse is 78. HEENT: Ocular movements conjugate. Pupils are equal. LUNGS: Symmetric air entry. HEART: S1, S2, regular rate. ABDOMEN: Soft, not distended. EXTREMITIES: She is diffusely weak. LABORATORY DATA: White cell count up to 12.2, hemoglobin 11, platelets 215. Chemistry with sodium 1 30, creatinine 0.64. Blood cultures from 08/31/2017, no growth thus far. 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 Currently on Zyvox. We will go ahead and discontinue meropenem since we do not have any evidence of a secondary superimposed infection at this time.
[2017-09-07] MEDS: Linezolid 600 MG in Premix Bag 1 BAG IVPB SCH ×2 (03:19→17:05)
[2017-09-07 05:02] LABS: #Eosinphils 0.2 thou/uL (0.0-0.7); #Lymphocytes 1.4 thou/uL (1.20-3.40); #Monocytes 1.3 thou/uL (0.11-0.59); #Neutrophils 7.6 thou/uL (1.40-6.50); %Basophils 0.4 % (0.0-1.0); %Eosinophils 2.2 % (0.0-10.0); %Lymphocytes 13.6 % (21.0-51.0); %Monocytes 12.4 % (0.0-10.0); %Neutrophils 71.5 % (42.0-75.0); Hemoglobin 12.2 g/dL (12.0-16.0); Mean Corpuscular HGB CONC 33.5 g/dL (32.0-36.0); Mean Corpuscular Hemoglobin 32.9 pg (27.0-31.0); Mean Corpuscular Volume 98.4 fl (81.0-99.0); Mean Platelet Volume 7.6 fL (7.4-10.4); Platelet Count 220 thou/uL (130-400); RBC Distribution Width 14.6 % (11.5-14.5); Red Blood Cell (RBC) Count 3.71 mill/uL (4.20-5.40); White Blood Cell (WBC) Count 10.7 thou/uL (4.8-10.8)
[2017-09-07 05:30] LABS: Anion Gap 12 mmol/L (10-20); BUN (Urea Nitrogen) 16 mg/dL (9.8-20.1); Calc. Creatinine Clearance 74 mL/min (70-130); Calcium 8.6 mg/dL (7.8-10.44); Carbon Dioxide 20 mmol/L (23-31); Chloride 102 mmol/L (98-107); Estimated GFR-MDRD 83; Glucose 134 mg/dL (83-110); Magnesium 2.8 mg/dL (1.6-2.6); Phosphorus 2.2 mg/dL (2.3-4.7); Potassium 4.7 mmol/L (3.5-5.1); Sodium 129 mmol/L (136-145)
[2017-09-07] MEDS: Enalaprilat Dihydrate 1.25 MG/ML VIAL SLOW IVP SCH ×3 (06:04→17:05)
[2017-09-07] MEDS: Sodium Chloride 0.9% 1,000 ML IV SCH ×3 (06:05→22:27)
--- NOTE | 2017-09-07 06:59 | PRG ---
DATE OF SERVICE: 09/07/2017 I saw Ms. Borges in her hospital room this morning. She is awaiting a gastrostomy tube placement and recovering from both a glioblastoma resection and a postoperative infection. Ms. Borges is more alert today and has some spontaneous conversation with me. She opens her eyes as I entered the room and she said good morning, conversation is disoriented. She has a tangential spee ch and then she drilled off, losing her train of thought. However, Ms. Borges is slowly improving. White blood cell count was 10.7 this morning and her sodium is up to 129. We will continue to follow along with Ms. Borges. Once the feeding tube is placed sh carina can be considered for placement in inpatient rehabilitation or alf facility.
[2017-09-07] MEDS: Losartan 25 MG TAB PO SCH ×2 (10:06→22:26)
[2017-09-07] MEDS: Dofetilide 0.125 MG CAP PO SCH ×3 (10:06→22:25)
[2017-09-07] MEDS ORDERED: Ondansetron HCl/PF 4 MG/2 ML Vial IVP PRN (12:53)
--- NOTE | 2017-09-07 15:13 | OP ---
PREOPERATIVE DIAGNOSIS: Dysphagia. SURGEON: Luis M Morales M.D. PROCEDURE PERFORMED: Esophagogastroduodenoscopy with percutaneous endoscopic gastrostomy. INDICATIONS: This is an 87-year-old female who had had a craniotomy and resection of brain tumor leonel t was complicated by a scalp infection, had to have a repeat craniotomy, has difficulty with feeding herself, unable to tolerate the tube feedings long-term through nasal tube. FINDINGS: There was some mild gastritis. PROCEDURE: After informed consent was obtained, the patient was taken to the operating room and give n total intravenous anesthesia, placed in the supine position. The video endoscope was inserted unde r direct vision through the esophagus down into the stomach. The stomach was inspected. There was s ome gastritis and some irritation, especially at the EG junction. The scope was retroflexed. The sc ope was advanced to the pylorus. No other ulceration seen. Then, the stomach was maximally insuffla zaheer with air. The light was visualized transcutaneously. Local anesthesia infiltrated subcutaneousl y and deep. An introducer needle was inserted transcutaneously into the stomach. The J-wire threade d and it was grasped with a snare. The J-wire then brought out through the mouth and connected to th e gastrostomy tube. The tube was then brought retroflex through the stomach and then through the ski n. The secured, then the endoscope was reintroduced, advanced into the stomach. The position looked good. There was no bleeding. The stomach decompressed. Scope removed. Then the clamp was a pplied to the tubing. The tubing divided and the end cap was placed on the tubing. A sterile bandag e was applied. The patient tolerated the procedure well and was transferred to recovery in good cond ition. Sponge and needle count verified correct x2.
[2017-09-07] MEDS ORDERED: PROPOFOL 200 MG/20 ML VIAL ONE (16:04)
[2017-09-07] MEDS ORDERED: Lidocaine 1% PF 5 ML VIAL ONE (16:04)
[2017-09-08] MEDS: Enalaprilat Dihydrate 1.25 MG/ML VIAL SLOW IVP SCH ×5 (00:27→23:17)
[2017-09-08] MEDS: Linezolid 600 MG in Premix Bag 1 BAG IVPB SCH ×2 (04:59→15:43)
[2017-09-08 05:41] LABS: Anion Gap 11 mmol/L (10-20); BUN (Urea Nitrogen) 19 mg/dL (9.8-20.1); Calc. Creatinine Clearance 73 mL/min (70-130); Calcium 8.6 mg/dL (7.8-10.44); Carbon Dioxide 21 mmol/L (23-31); Chloride 102 mmol/L (98-107); Estimated GFR-MDRD 82; Glucose 124 mg/dL (83-110); Magnesium 2.3 mg/dL (1.6-2.6); Potassium 4.2 mmol/L (3.5-5.1); Sodium 130 mmol/L (136-145)
[2017-09-08 05:43] LABS: #Eosinphils 0.2 thou/uL (0.0-0.7); #Lymphocytes 2.2 thou/uL (1.20-3.40); #Monocytes 1.4 thou/uL (0.11-0.59); %Basophils 0.4 % (0.0-1.0); %Eosinophils 1.7 % (0.0-10.0); %Lymphocytes 20.1 % (21.0-51.0); %Monocytes 12.8 % (0.0-10.0); Hemoglobin 11.2 g/dL (12.0-16.0); Mean Corpuscular HGB CONC 32.8 g/dL (32.0-36.0); Mean Corpuscular Hemoglobin 31.5 pg (27.0-31.0); Mean Platelet Volume 7.3 fL (7.4-10.4); Platelet Count 246 thou/uL (130-400); RBC Distribution Width 14.6 % (11.5-14.5); Red Blood Cell (RBC) Count 3.55 mill/uL (4.20-5.40); White Blood Cell (WBC) Count 10.7 thou/uL (4.8-10.8)
[2017-09-08] MEDS: Losartan 25 MG TAB PO SCH ×2 (08:38→22:08)
[2017-09-08] MEDS: Dofetilide 0.125 MG CAP PO SCH ×3 (08:38→22:08)
--- NOTE | 2017-09-08 09:00 | PRG ---
DATE OF SERVICE: 09/08/2017 NEUROSURGERY PROGRESS NOTE SUBJECTIVE: I saw Ms. Borges on rounds. She had a feeding tube placement yesterday and the nasogast ritu tube is out of her nose. She looks happier with it gone. Overnight, she has no fevers recorded and her vital signs are stable. As I entered the room, she opens her eyes. She says a few words to me and a phrase. She does not follow commands, however. Ms. Borges's neurological examination is stable from last 3 days. She had improved from last weekend to Sunday and stabilized from Sunday through today. Ms. Borges is being ready for placement. It has been four days since her last venogram and I think it is reasonable to check another to make sure there is no DVT developing. Otherwise, she will be ready for transfer any time.
--- NOTE | 2017-09-08 10:39 | PRG ---
DATE OF SERVICE: 09/08/2017 Ms. Borges is an 87-year-old female who I saw in her room this morning. She had a gastrostomy tube p laced yesterday. She is recovering from glioblastoma resection, postoperative infection. This morni ng on exam, Ms. Borges is able to follow me around the room with her eyes. Her conversation is disor iented; however, she does try to make an effort to participate in conversation. Her neurologic exam has been stable since yesterday and there are no new neurologic deficits on exam. This morning, her white blood cell count is 10.7 and her sodium is 130, up from 129 yesterday. Plan for Ms. Borges is to now as the feeding tube was in place, the next step will be to look for octaviano cement of inpatient rehabilitation or long-term facility. Case management has talked with the family regarding LTAC options. The patient is too complex for a long-term facility per case gian espinoza, said they would like to wait to make a decision before she is sent home. We will continue to wait for updates in regard for placement after hospital discharge. If there are any further quest ions, please feel free to contact Neurosurgery.
--- NOTE | 2017-09-08 15:04 | ULT ---
BILATERAL LOWER EXTREMITY VENOUS DOPPLER ULTRASOUND EVALUATION: HISTORY: Immobility. Lower extremity swelling. Evaluate for venous thrombosis. Bilateral lower extremity ge neralized edema. FINDINGS: Multiple longitudinal and transverse images of the right and left lower extremity venous systems are obtained using a multihertz linear ray transducer. Real-time, color flow, and spectral waveform Dopp ler analysis demonstrates no evidence of acute or old clot seen in the right or left common femoral, superficial femoral, femoral profunda, popliteal, posterior tibial vein, post trifurcation veins, and greater saphenous veins. IMPRESSION: No evidence of right or left lower extremity deep venous thrombosis. POS: [facility]
--- NOTE | 2017-09-08 15:08 | PDOC.PN ---
- Subjective Encounter Start Date: 09/08/17 Encounter Start Time: 11:30 Subjective: MINIMAL VERBAL EXCHANGE, PER RN SHE IS MORE TALKATIVE W/O NEW -: COMPLAINTS - Objective MAR Reviewed: Yes Vital Signs & Weight: Vital Signs (12 hours) Temp Pulse Resp BP BP Pulse Ox 09/08/17 12:17 132/78 09/08/17 12:13 97.9 F 80 16 132/78 97 09/08/17 08:08 98.9 F 79 18 144/73 H 96 09/08/17 04:00 98.1 F 80 19 132/76 97 Weight Admit Weight 180 lb 5 oz Weight 178 lb 12.8 oz Most Recent Monitor Data Heart Rate from ECG 86 NIBP 125/61 NIBP BP-Mean 84 Respiration from ECG 24 SpO2 97 I&O: 09/07/17 09/08/17 09/09/17 06:59 06:59 06:59 Intake Total 2386 376 9661 Output Total 1300 2400 700 Balance -80 -1545 860 Result Diagrams: 09/08/17 05:15 09/08/17 05:15 Additional Labs: Accuchecks 09/07/17 17:09 POC Glucose 104 Phys Exam - Physical Examination Constitutional: NAD HEENT: PERRLA, moist MMs, sclera anicteric Neck: supple Respiratory: no rhonchi Cardiovascular: RRR Gastrointestinal: soft PEG IN PLACE Musculoskeletal: edema present Skin: no rash Dx/Plan (1) Encephalopathy Code(s): G93.40 - ENCEPHALOPATHY, UNSPECIFIED Status: Acute Comment: Fluctuating level of consciousness (2) Facial cellulitis Code(s): L03.211 - CELLULITIS OF FACE Status: Acute (3) Post Surgical Infection Status: Acute Comment: s/p washout 08/24/17.Cx +ve for MRSA (4) DM type 2 (diabetes mellitus, type 2) Status: Chronic Qualifiers: Diabetes mellitus snf insulin use: without snf use Diabetes mellitus complication status: with unspecified complications Qualified Code(s) : E11.8 - Type 2 diabetes mellitus with unspecified complications Comment: Continue accuchecks and insulin sliding scale. (5) Dyslipidemia Code(s): E78.5 - HYPERLIPIDEMIA, UNSPECIFIED Status: Chronic (6) Glioblastoma Code(s): C71.9 - MALIGNANT NEOPLASM OF BRAIN, UNSPECIFIED Status: Chronic Comment: h/o recent resection of mass (7) HTN (hypertension) Code(s): I10 - ESSENTIAL (PRIMARY) HYPERTENSION Status: Chronic Qualifiers: Hypertension type: essential hypertension Qualified Code(s): I10 - Essential (primary) hypertension Comment: Monitor vital signs, titrate antihypertensives as needed. - Plan NEGATIVE U/S FOR DVT BLE, AWAITING PLACEMENT IN LTAC -: SIADH --IV NS FOR HYPONATREMIA, CONSIDER FLUID RESTRICTIONS * .
[2017-09-08] MEDS: Sodium Chloride 0.9% 1,000 ML IV SCH (15:47)
--- NOTE | 2017-09-08 18:54 | PRG ---
DATE OF SERVICE: 09/08/2017 ATTENDING PHYSICIAN: Dr. Puma Aly. SUBJECTIVE: Ms. Borges is an 87-year-old female who had a craniotomy and resection of a brain tumor that was complicated by a scalp infection. She has had difficulty with feeding herself and unable to tolerate tube feedings through a keno terminal operator nasal tube. She had a percutaneous endoscopic gastrostomy tube placed yesterday. She is now seen on the surgical floor in follow up. OBJECTIVE: VITAL SIGNS: Temperature 98.3, pulse 80, respirations 16, O2 sat 97% room air, blood pressure 132/78. CONSTITUTIONAL: Elderly female, in no acute distress. ABDOMEN: Soft, nontender, nondistended. PEG tube insertion site without drainage or redness. No pain expressed with palpation around surgical site. Tube feedings going through a PEG tube without difficulty. The patient also having bowel movements. ASSESSMENT: 1. Status post PEG tube placement. 2. WBC 10.7, stable from 10.7 yesterday. PLAN: 1. Continue using PEG tube for tube feedings. 2. Trauma/General Surgery will continue to follow and assist as needed. The patient was reviewed with Dr. Aly who agrees with plan. [facility]
[2017-09-09] MEDS: Linezolid 600 MG in Premix Bag 1 BAG IVPB SCH ×2 (03:40→15:51)
[2017-09-09 04:15] LABS: #Basophils 0.1 thou/uL (0.0-0.2); #Eosinphils 0.1 thou/uL (0.0-0.7); #Lymphocytes 1.7 thou/uL (1.20-3.40); #Monocytes 1.4 thou/uL (0.11-0.59); %Basophils 0.4 % (0.0-1.0); %Eosinophils 1.2 % (0.0-10.0); %Lymphocytes 13.6 % (21.0-51.0); %Monocytes 11.2 % (0.0-10.0); %Neutrophils 73.6 % (42.0-75.0); Hemoglobin 11.6 g/dL (12.0-16.0); Mean Corpuscular HGB CONC 33.5 g/dL (32.0-36.0); Mean Corpuscular Hemoglobin 32.3 pg (27.0-31.0); Mean Corpuscular Volume 96.4 fl (81.0-99.0); Mean Platelet Volume 6.9 fL (7.4-10.4); Platelet Count 249 thou/uL (130-400); RBC Distribution Width 14.8 % (11.5-14.5); Red Blood Cell (RBC) Count 3.59 mill/uL (4.20-5.40); White Blood Cell (WBC) Count 12.2 thou/uL (4.8-10.8)
[2017-09-09 04:57] LABS: Anion Gap 11 mmol/L (10-20); BUN (Urea Nitrogen) 17 mg/dL (9.8-20.1); Calc. Creatinine Clearance 73 mL/min (70-130); Calcium 8.7 mg/dL (7.8-10.44); Carbon Dioxide 22 mmol/L (23-31); Chloride 101 mmol/L (98-107); Estimated GFR-MDRD 82; Glucose 114 mg/dL (83-110); Magnesium 2.3 mg/dL (1.6-2.6); Potassium 4.7 mmol/L (3.5-5.1); Sodium 129 mmol/L (136-145)
[2017-09-09 05:03] LABS: Phosphorus 1.9 mg/dL (2.3-4.7)
[2017-09-09] MEDS: Enalaprilat Dihydrate 1.25 MG/ML VIAL SLOW IVP SCH ×4 (07:38→22:52)
[2017-09-09] MEDS: Losartan 25 MG TAB PO SCH ×2 (08:39→21:11)
[2017-09-09] MEDS: Dofetilide 0.125 MG CAP PO SCH ×3 (08:40→21:10)
--- NOTE | 2017-09-09 09:35 | PRG ---
DATE OF SERVICE: 09/09/2017 NEUROSURGERY PROGRESS NOTE SUBJECTIVE: I saw Ms. Borges in our hospital room this morning. I asked her to try to get to better for us and she said that she would try. This is an appropriate phrase as a complete sentence and parisi s better speech than she has had for me in the past 3 days. However, I still cannot get her to follo w there many commands. She moves 4 extremities purposefully, but not very much. LABORATORY DATA: This morning, sodium is 129. White blood cell count is 12.2. Ms. Borges's feeding tube in place. I think it would be reasonable to look for placement. Now she i s not ready for any adjuvant therapy for her brain tumor, unfortunately. We will continue to follow.
--- NOTE | 2017-09-09 11:14 | PDOC.PN ---
- Subjective Encounter Start Date: 09/09/17 Encounter Start Time: 10:50 -: non-verbal - Objective MAR Reviewed: Yes Vital Signs & Weight: Vital Signs (12 hours) Temp Pulse Resp BP BP Pulse Ox 09/09/17 08:44 98.3 F 80 16 159/74 H 97 09/09/17 07:38 159/74 H 09/09/17 00:25 143/82 H 09/08/17 23:17 175/74 H Weight Admit Weight 180 lb 5 oz Weight 178 lb 12.8 oz Most Recent Monitor Data Heart Rate from ECG 86 NIBP 125/61 NIBP BP-Mean 84 Respiration from ECG 24 SpO2 97 I&O: 09/08/17 09/09/17 09/10/17 06:59 06:59 06:59 Intake Total 855 3270 Output Total 2400 2400 Balance -1545 870 Result Diagrams: 09/09/17 04:00 09/09/17 04:00 Phys Exam - Physical Examination Constitutional: NAD HEENT: PERRLA, moist MMs, sclera anicteric sutures scalp Neck: supple Respiratory: no wheezing, no rhonchi Cardiovascular: RRR Gastrointestinal: soft, non-tender peg tube in place Musculoskeletal: no edema Deviation from normal: non verbal this morning Skin: no rash Dx/Plan (1) Encephalopathy Code(s): G93.40 - ENCEPHALOPATHY, UNSPECIFIED Status: Acute Comment: Fluctuating level of consciousness (2) Facial cellulitis Code(s): L03.211 - CELLULITIS OF FACE Status: Acute (3) Post Surgical Infection Status: Acute Comment: s/p washout 08/24/17.Cx +ve for MRSA (4) DM type 2 (diabetes mellitus, type 2) Status: Chronic Qualifiers: Diabetes mellitus middle or intermediate school principal insulin use: without middle or intermediate school principal use Diabetes mellitus complication status: with unspecified complications Qualified Code(s) : E11.8 - Type 2 diabetes mellitus with unspecified complications Comment: Continue accuchecks and insulin sliding scale. (5) Dyslipidemia Code(s): E78.5 - HYPERLIPIDEMIA, UNSPECIFIED Status: Chronic (6) Glioblastoma Code(s): C71.9 - MALIGNANT NEOPLASM OF BRAIN, UNSPECIFIED Status: Chronic Comment: h/o recent resection of mass (7) HTN (hypertension) Code(s): I10 - ESSENTIAL (PRIMARY) HYPERTENSION Status: Chronic Qualifiers: Hypertension type: essential hypertension Qualified Code(s): I10 - Essential (primary) hypertension Comment: Monitor vital signs, titrate antihypertensives as needed. - Plan cont current plan of care to LTAC soon * .
--- NOTE | 2017-09-09 11:21 | PRG ---
DATE OF SERVICE: 09/09/2017 I saw Ms. Borges in her room this morning. She is an 87-year-old female, status post craniotomy for tumor resection. There are no new neurologic deficits on her exam. She is able to follow me around her room with her eyes, but she cannot follow any of my commands. All 4 of her extremities move purp osefully. Her vital signs overnight have been stable, and this morning, she is hyponatremic with sod ium of 129. We can try to look for placement for post-hospital rehabilitation. If there are any fur ther questions, please feel free to contact Neurosurgery.
[2017-09-09] MEDS: Sodium Chloride 0.9% 1,000 ML IV SCH ×2 (21:10→22:57)
[2017-09-10] MEDS: Linezolid 600 MG in Premix Bag 1 BAG IVPB SCH ×2 (03:26→16:07)
[2017-09-10 06:01] LABS: #Eosinphils 0.2 thou/uL (0.0-0.7); #Lymphocytes 1.9 thou/uL (1.20-3.40); #Monocytes 1.3 thou/uL (0.11-0.59); #Neutrophils 9.7 thou/uL (1.40-6.50); %Basophils 0.3 % (0.0-1.0); %Eosinophils 1.8 % (0.0-10.0); %Lymphocytes 14.5 % (21.0-51.0); %Monocytes 9.6 % (0.0-10.0); %Neutrophils 73.8 % (42.0-75.0); Hemoglobin 11.9 g/dL (12.0-16.0); Mean Corpuscular HGB CONC 33.7 g/dL (32.0-36.0); Mean Corpuscular Hemoglobin 32.8 pg (27.0-31.0); Mean Corpuscular Volume 97.2 fl (81.0-99.0); Mean Platelet Volume 6.9 fL (7.4-10.4); Platelet Count 232 thou/uL (130-400); RBC Distribution Width 14.6 % (11.5-14.5); Red Blood Cell (RBC) Count 3.64 mill/uL (4.20-5.40); White Blood Cell (WBC) Count 13.1 thou/uL (4.8-10.8)
[2017-09-10] MEDS: Enalaprilat Dihydrate 1.25 MG/ML VIAL SLOW IVP SCH ×3 (06:13→18:09)
[2017-09-10 06:27] LABS: Anion Gap 12 mmol/L (10-20); BUN (Urea Nitrogen) 15 mg/dL (9.8-20.1); Calc. Creatinine Clearance 74 mL/min (70-130); Calcium 8.8 mg/dL (7.8-10.44); Carbon Dioxide 19 mmol/L (23-31); Chloride 100 mmol/L (98-107); Estimated GFR-MDRD 83; Glucose 114 mg/dL (83-110); Magnesium 2.3 mg/dL (1.6-2.6); Potassium 4.4 mmol/L (3.5-5.1); Sodium 127 mmol/L (136-145)
[2017-09-10] MEDS: Dofetilide 0.125 MG CAP PO SCH ×3 (09:06→21:37)
[2017-09-10] MEDS: Losartan 25 MG TAB PO SCH ×2 (09:06→21:36)
--- NOTE | 2017-09-10 10:57 | PRG ---
DATE OF SERVICE: 09/10/2017 Ms. Borges is now postoperative day #17, having undergone a right cranial wound washout. She does co ntinue to improve slowly. By report yesterday she was speaking with slight concurrent words, but tod ay she is speaking words, but these do not make sense. She does move her extremities spontaneously, although not to command. Her son is at bedside and updated on her progress. She did get a PEG tube placed this weekend. The issue now is placement. I would like her sutures to remain until the 3 wee k palmira at least and she should be placed at a LTAC facility, they can certainly do the suture removal there. Of course, she is not yet a candidate for adjunctive tumor therapy, although again, she does continue to improve. Her son notes that she did sit on the side of the bed for 10 minutes yesterday with physical therapy. She was also felt in the right direction for improvement. Her white blood c ell count again was trending upward at 13. Her sodium is still low at 127. We will ask our medical colleagues to continue to keep an eye on this. Otherwise, the patient is doing well from a neurosurg ical standpoint and does slowly, but continuously improve.
[2017-09-10] MEDS: Sodium Chloride 0.9% 1,000 ML IV SCH (16:08)
--- NOTE | 2017-09-10 17:00 | PDOC.PN ---
- Subjective Encounter Start Date: 09/10/17 Encounter Start Time: 16:45 Subjective: f/u for cranial wound infection with MRSA on current Linezolid. s/p removal -: R frontal prior craniotomy site with washout and current abx. Pt remains -: weak, speaks in a few words, minimally following commands. - Objective MAR Reviewed: Yes Vital Signs & Weight: Vital Signs (12 hours) Temp Pulse Resp BP BP Pulse Ox 09/10/17 12:00 119/70 09/10/17 09:06 99.2 F 80 14 96 09/10/17 07:47 99.2 F 80 14 151/79 H 96 09/10/17 06:13 144/69 H Weight Admit Weight 180 lb 5 oz Weight 178 lb 12.8 oz Most Recent Monitor Data Heart Rate from ECG 86 NIBP 125/61 NIBP BP-Mean 84 Respiration from ECG 24 SpO2 97 I&O: 09/09/17 09/10/17 09/11/17 06:59 06:59 06:59 Intake Total 3270 2669 237 Output Total 2400 2400 Balance 870 269 237 Result Diagrams: 09/10/17 04:56 09/10/17 04:56 Additional Labs: Laboratory Tests 09/04/17 09/05/17 09/06/17 03:56 05:31 04:09 WBC Sodium 127 L 127 L 130 L Phosphorus Magnesium 09/07/17 09/07/17 09/08/17 04:53 04:53 05:15 WBC 10.7 Sodium 129 L 130 L Phosphorus Magnesium 09/08/17 09/09/17 09/09/17 05:15 04:00 04:00 WBC 10.7 12.2 H Sodium 129 L Phosphorus Magnesium 09/10/17 04:56 WBC Sodium Phosphorus 2.0 L Magnesium 2.3 Phys Exam - Physical Examination Constitutional: NAD HEENT: PERRLA, oral pharynx no lesions Neck: no JVD, supple Respiratory: no wheezing, clear to auscultation bilateral Cardiovascular: RRR PEG site CDI Gastrointestinal: soft, non-tender, no distention, positive bowel sounds Musculoskeletal: no edema, pulses present moves limbs randomly states unrelated words Neurological: moves all 4 limbs A x O x 1 Skin: normal turgor, cap refill <2 seconds Dx/Plan (1) Post Surgical Infection Status: Acute Comment: s/p washout 3/2/18.Cx +ve for MRSA, continue Linezolid 600mg BID (2) Glioblastoma Code(s): C71.9 - MALIGNANT NEOPLASM OF BRAIN, UNSPECIFIED Status: Chronic Comment: s/p R craniotomy with resection GBM, not a candidate for adjuvant chemo currently, continue Keppra 250mg PT BID (3) HTN (hypertension) Code(s): I10 - ESSENTIAL (PRIMARY) HYPERTENSION Status: Chronic Qualifiers: Hypertension type: essential hypertension Qualified Code(s): I10 - Essential (primary) hypertension Comment: Monitor vital signs, titrate antihypertensives as needed, continue Metoprolol and Losartan (4) Hyponatremia Code(s): E87.1 - HYPO-OSMOLALITY AND HYPONATREMIA Status: Chronic Comment: subacute, likely multifactorial given poor po intake, current TF's and GBM, clinically stable despite value, saline lock IVF's given free H20 intake per PEG tube (5) Dysphagia Code(s): R13.10 - DYSPHAGIA, UNSPECIFIED Status: Acute Qualifiers: Dysphagia type: oropharyngeal phase Qualified Code(s): R13.12 - Dysphagia, oropharyngeal phase Comment: s/p PEG tube insertion with current TF's Jevity 1.5, 4 cans/day with Les TID - Plan continue antibiotics, PT/OT, social worker psychiatric, speech therapy, DVT proph w/SCDs Continue supportive mgmt -: Change Keppra 250mg PT BID -: Saline lock IVF's -: Nutritional support with Jevity 1.5, 4 cans/day, Les TID -: CM for LTAC options * Continue Linezolid 600mg PT BID
--- NOTE | 2017-09-10 18:12 | PRG ---
DATE OF SERVICE: 09/10/2017 SUBJECTIVE: Ms. Borges is more alert today. She establishes eye contact and smiles. She was able t o talk earlier, but not now. She has had no vomiting, no respiratory symptoms. OBJECTIVE: VITAL SIGNS: T-max 99.2, blood pressure 140/69, pulse 80, respirations 16, O2 sat 96%. The cranioto my incision appears dry and without inflammatory changes. LUNGS: With symmetric clear breath sounds. Gastrostomy tube in place. HEART: S1, S2, regular rate. ABDOMEN: Soft, not distended. She is able to move extremities, but she has quite delayed onset of m otion. LABORATORY DATA: White cell count 13,000, hemoglobin 11, platelets 232. Sodium 127, creatinine 0.67 with glucose of 114. No new culture results. ASSESSMENT AND DISCUSSION: Glioblastoma status post resection, postoperative infection secondary to MRSA with some element of cerebritis. We will transition to Zyvox through gastrostomy tube administr ation in view of the excellent bioavailability. End date of therapy will be 10/04/2017.
[2017-09-10] MEDS: levETIRAcetam 500 MG TAB PER TUBE SCH (21:36)
[2017-09-11] MEDS: Enalaprilat Dihydrate 1.25 MG/ML VIAL SLOW IVP SCH ×5 (00:12→23:43)
[2017-09-11] MEDS: Linezolid 600 MG TAB PER TUBE SCH ×2 (03:03→17:26)
[2017-09-11 05:55] LABS: #Basophils 0.1 thou/uL (0.0-0.2); #Eosinphils 0.2 thou/uL (0.0-0.7); #Lymphocytes 1.8 thou/uL (1.20-3.40); %Basophils 0.8 % (0.0-1.0); %Lymphocytes 16.4 % (21.0-51.0); %Monocytes 9.2 % (0.0-10.0); %Neutrophils 71.8 % (42.0-75.0); Hemoglobin 12.3 g/dL (12.0-16.0); Mean Corpuscular HGB CONC 33.7 g/dL (32.0-36.0); Mean Corpuscular Hemoglobin 33.3 pg (27.0-31.0); Mean Corpuscular Volume 98.8 fl (81.0-99.0); Mean Platelet Volume 7.2 fL (7.4-10.4); Platelet Count 216 thou/uL (130-400); RBC Distribution Width 14.5 % (11.5-14.5); White Blood Cell (WBC) Count 11.1 thou/uL (4.8-10.8)
[2017-09-11 06:06] LABS: Anion Gap 12 mmol/L (10-20); BUN (Urea Nitrogen) 15 mg/dL (9.8-20.1); Calc. Creatinine Clearance 78 mL/min (70-130); Calcium 9.3 mg/dL (7.8-10.44); Carbon Dioxide 20 mmol/L (23-31); Chloride 99 mmol/L (98-107); Estimated GFR-MDRD 88; Glucose 114 mg/dL (83-110); Magnesium 2.2 mg/dL (1.6-2.6); Phosphorus 2.4 mg/dL (2.3-4.7); Potassium 4.2 mmol/L (3.5-5.1); Sodium 127 mmol/L (136-145)
[2017-09-11] MEDS: Dofetilide 0.125 MG CAP PO SCH ×3 (08:34→20:32)
[2017-09-11] MEDS: levETIRAcetam 500 MG TAB PER TUBE SCH ×2 (08:34→20:33)
[2017-09-11] MEDS: Losartan 25 MG TAB PO SCH ×2 (08:34→20:33)
[2017-09-11] MEDS: Enoxaparin Sodium 30 MG/0.3 ML SYRINGE SC SCH (11:50)
--- NOTE | 2017-09-11 11:56 | PRG ---
DATE OF SERVICE: 09/11/2017 Ms. Borges is now two weeks out from wound wash out for an infected craniotomy wound following a glio blastoma resection. She has demonstrated slow but meaningful progress. This morning on exam, she is alert and does attend to the examiner and even follows commands intermittently. She also will speak appropriately. Metabolically, it appears as if her white blood cell count is trending to a more nor mal level. She does have hyponatremia, but we are now working on appropriate placement. I would rec ommend a suture removal at 21 days postop, which would be this Sunday and we will start low dose Love nox.
--- NOTE | 2017-09-11 16:45 | PDOC.PN ---
- Subjective Encounter Start Date: 09/11/17 Encounter Start Time: 16:40 Subjective: f/u for R frontal craniotomy with washout and post op MRSA on Linezolid. -: Remains weak and sitting better with PT, recommendations for SNF -: and ongoing supervised care. - Objective MAR Reviewed: Yes Vital Signs & Weight: Vital Signs (12 hours) Temp Pulse Resp BP BP Pulse Ox 09/11/17 16:32 97.7 F 85 16 165/74 H 99 09/11/17 11:50 153/79 H 09/11/17 11:15 97.9 F 77 16 159/85 H 95 09/11/17 08:47 98.9 F 79 16 165/84 H 98 09/11/17 08:00 98.9 F 79 16 09/11/17 05:16 153/79 H Weight Admit Weight 180 lb 5 oz Weight 178 lb 12.8 oz Most Recent Monitor Data Heart Rate from ECG 86 NIBP 125/61 NIBP BP-Mean 84 Respiration from ECG 24 SpO2 97 I&O: 09/10/17 09/11/17 09/12/17 06:59 06:59 06:59 Intake Total 2669 1302 Output Total 2400 2100 Balance 269 -798 Result Diagrams: 09/11/17 05:41 09/11/17 05:41 Phys Exam - Physical Examination Constitutional: NAD HEENT: PERRLA, oral pharynx no lesions Neck: no JVD, supple Respiratory: no wheezing, clear to auscultation bilateral Cardiovascular: RRR Gastrointestinal: soft, non-tender, no distention, positive bowel sounds Musculoskeletal: no edema, pulses present slow reaction and movement Neurological: moves all 4 limbs alert, slow response to questions, nods Skin: normal turgor, cap refill <2 seconds Dx/Plan (1) Post Surgical Infection Status: Acute Comment: s/p washout 08/24/17.Cx +ve for MRSA, continue Linezolid 600mg BID until 10/04/17 (2) Glioblastoma Code(s): C71.9 - MALIGNANT NEOPLASM OF BRAIN, UNSPECIFIED Status: Chronic Comment: s/p R craniotomy with resection GBM, not a candidate for adjuvant chemo currently, continue Keppra 250mg PT BID (3) HTN (hypertension) Code(s): I10 - ESSENTIAL (PRIMARY) HYPERTENSION Status: Chronic Qualifiers: Hypertension type: essential hypertension Qualified Code(s): I10 - Essential (primary) hypertension Comment: Monitor vital signs, titrate antihypertensives as needed, continue Metoprolol and Losartan (4) Hyponatremia Code(s): E87.1 - HYPO-OSMOLALITY AND HYPONATREMIA Status: Chronic Comment: subacute, likely multifactorial given poor po intake, current TF's and GBM, clinically stable despite value, saline lock IVF's given free H20 intake per PEG tube (5) Dysphagia Code(s): R13.10 - DYSPHAGIA, UNSPECIFIED Status: Acute Qualifiers: Dysphagia type: oropharyngeal phase Qualified Code(s): R13.12 - Dysphagia, oropharyngeal phase Comment: s/p PEG tube insertion with current TF's Jevity 1.5, 4 cans/day with Les TID - Plan PT/OT, social service worker, speech therapy, DVT proph w/SCDs Continue supportive mgmt -: Local wound care -: PT/OT for mobilization -: Continue Keppra 250mg BID -: Nutritional support Jevity 1.5, 4 cans daily * AM lab: BMP
[2017-09-12] MEDS: Linezolid 600 MG TAB PER TUBE SCH ×2 (03:50→16:55)
[2017-09-12] MEDS: Enalaprilat Dihydrate 1.25 MG/ML VIAL SLOW IVP SCH ×3 (05:09→18:16)
[2017-09-12 05:42] LABS: Anion Gap 12 mmol/L (10-20); BUN (Urea Nitrogen) 20 mg/dL (9.8-20.1); Calc. Creatinine Clearance 72 mL/min (70-130); Calcium 9.1 mg/dL (7.8-10.44); Carbon Dioxide 22 mmol/L (23-31); Chloride 99 mmol/L (98-107); Estimated GFR-MDRD 80; Glucose 104 mg/dL (83-110); Potassium 4.3 mmol/L (3.5-5.1); Sodium 129 mmol/L (136-145)
[2017-09-12] MEDS: Dofetilide 0.125 MG CAP PO SCH ×3 (09:31→21:52)
[2017-09-12] MEDS: Losartan 25 MG TAB PO SCH ×2 (09:32→21:51)
[2017-09-12] MEDS: levETIRAcetam 500 MG TAB PER TUBE SCH ×2 (09:32→21:51)
--- NOTE | 2017-09-12 11:25 | PRG ---
DATE OF SERVICE: 09/12/2017 Servando Alegria PA-C dictating for Winston Marie MD. Ms. Borges is now a little bit more than 2 weeks out from a cranial wound washout. Her neurologic ex am does wax and wane. Currently, she is awake in bed, but is nonverbal. She also does not follow co mmands. When asked to wiggle her fingers, she opens her mouth. Her sodium is somewhat improved and is currently 129. There were no CBC labs currently. Again now, the question remains regarding disch arge. This will involve LTAC versus assisted. We will work with case management in regards t o this. Please call with any questions or changes in patient's neurologic status. Otherwise, we etta l continue to follow the patient and again hope for discharge soon.
[2017-09-12] MEDS: Enoxaparin Sodium 30 MG/0.3 ML SYRINGE SC SCH (12:36)
--- NOTE | 2017-09-12 19:27 | PDOC.PN ---
- Subjective Encounter Start Date: 09/12/17 Encounter Start Time: 19:10 Subjective: f/u after craniotomy with washout and MRSA on Linezolid. No new -: issues reported. Awaiting placement options. - Objective MAR Reviewed: Yes Vital Signs & Weight: Vital Signs (12 hours) Temp Pulse Resp BP BP Pulse Ox 09/12/17 18:16 130/73 09/12/17 15:00 98.9 F 85 24 H 152/92 H 100 09/12/17 12:37 130/73 09/12/17 11:37 98.9 F 81 20 153/80 H 98 09/12/17 08:00 98.9 F 85 24 H 09/12/17 07:51 98.7 F 80 16 137/72 94 L Weight Admit Weight 180 lb 5 oz Weight 179 lb 1.6 oz Most Recent Monitor Data Heart Rate from ECG 86 NIBP 125/61 NIBP BP-Mean 84 Respiration from ECG 24 SpO2 97 I&O: 09/11/17 09/12/17 09/13/17 06:59 06:59 06:59 Intake Total 1302 240 Output Total 2100 900 Balance -798 -660 Result Diagrams: 09/11/17 05:41 09/12/17 04:22 Additional Labs: Laboratory Tests 09/04/17 09/05/17 09/06/17 03:56 05:31 04:09 WBC Sodium 127 L 127 L 130 L Phosphorus Magnesium 09/07/17 09/07/17 09/08/17 04:53 04:53 05:15 WBC 10.7 Sodium 129 L 130 L Phosphorus Magnesium 09/08/17 09/09/17 09/09/17 05:15 04:00 04:00 WBC 10.7 12.2 H Sodium 129 L Phosphorus Magnesium 09/10/17 04:56 WBC Sodium Phosphorus 2.0 L Magnesium 2.3 Phys Exam - Physical Examination Constitutional: NAD opens eyes to name, not following commands HEENT: PERRLA, oral pharynx no lesions Neck: no JVD, supple Respiratory: no wheezing, clear to auscultation bilateral Cardiovascular: RRR LUQ +PEG C/D/I Gastrointestinal: soft, non-tender, no distention, positive bowel sounds Musculoskeletal: no edema, pulses present Neurological: moves all 4 limbs Skin: normal turgor, cap refill <2 seconds Dx/Plan (1) Post Surgical Infection Status: Acute Comment: s/p washout 08/24/17.Cx +ve for MRSA, continue Linezolid 600mg BID until 10/04/17 (2) Glioblastoma Code(s): C71.9 - MALIGNANT NEOPLASM OF BRAIN, UNSPECIFIED Status: Chronic Comment: s/p R craniotomy with resection GBM, not a candidate for adjuvant chemo currently, continue Keppra 250mg PT BID (3) HTN (hypertension) Code(s): I10 - ESSENTIAL (PRIMARY) HYPERTENSION Status: Chronic Qualifiers: Hypertension type: essential hypertension Qualified Code(s): I10 - Essential (primary) hypertension Comment: Monitor vital signs, titrate antihypertensives as needed, continue Metoprolol and Losartan (4) Hyponatremia Code(s): E87.1 - HYPO-OSMOLALITY AND HYPONATREMIA Status: Chronic Comment: subacute, likely multifactorial given poor po intake, current TF's and GBM, clinically stable despite value, saline lock IVF's given free H20 intake per PEG tube (5) Dysphagia Code(s): R13.10 - DYSPHAGIA, UNSPECIFIED Status: Acute Qualifiers: Dysphagia type: oropharyngeal phase Qualified Code(s): R13.12 - Dysphagia, oropharyngeal phase Comment: s/p PEG tube insertion with current TF's Jevity 1.5, 4 cans/day with Les TID - Plan continue antibiotics, PT/OT, rn social work, DVT proph w/SCDs Stable currently -: Continue supportive measures -: Continue Linezolid 600mg BID until 10/04/17 -: CM assisting with LTAC/SNF options -: AM lab: BMP * .
[2017-09-12] MEDS: Acetaminophen 325 MG TAB PO PRN (21:52)
[2017-09-13] MEDS: Enalaprilat Dihydrate 1.25 MG/ML VIAL SLOW IVP SCH ×3 (01:17→13:40)
[2017-09-13] MEDS: Linezolid 600 MG TAB PER TUBE SCH (03:59)
[2017-09-13 04:48] LABS: Anion Gap 12 mmol/L (10-20); BUN (Urea Nitrogen) 24 mg/dL (9.8-20.1); Calc. Creatinine Clearance 71 mL/min (70-130); Calcium 9.4 mg/dL (7.8-10.44); Carbon Dioxide 25 mmol/L (23-31); Chloride 98 mmol/L (98-107); Estimated GFR-MDRD 79; Glucose 101 mg/dL (83-110); Potassium 4.2 mmol/L (3.5-5.1); Sodium 131 mmol/L (136-145)
--- NOTE | 2017-09-13 08:12 | PRG ---
DATE OF SERVICE: 09/13/2017 Ms. Borges is now almost 3 weeks postop from a cranial wound washout. She remains on Linezolid per t ube at the direction of Infectious Disease. This morning she is more alert. She will spontaneously move all 4 extremities, though not to command. She is improved; however, because she will state her name when asked. The issue now is placement. A swing bed has accepted her in [place] and Dr. Marie has discussed her case with the accepting physician, Dr. Parish. She is okay to go from our standpoin t with the understanding that her sutures will be removed tomorrow. Certainly we will check back on the patient if she is still here tomorrow. Of note, her sodium is improved at 131, up from 129 yeste rday. We would like the Ketyeshara and Lovenox, continued. Please call with any questions or changes in the patient's neurologic status. Otherwise, she is stab le for discharge from a neurosurgical standpoint.
[2017-09-13] MEDS: Losartan 25 MG TAB PO SCH (10:15)
[2017-09-13] MEDS: Dofetilide 0.125 MG CAP PO SCH (10:15)
[2017-09-13] MEDS: levETIRAcetam 500 MG TAB PER TUBE SCH (10:16)
[2017-09-13] MEDS: Acetaminophen 325 MG TAB PO PRN (10:16)
[2017-09-13] MEDS: Enoxaparin Sodium 30 MG/0.3 ML SYRINGE SC SCH (10:17)
--- NOTE | 2017-09-13 13:45 | DIS ---
DATE OF ADMISSION: 08/22/2017 DATE OF DISCHARGE: 09/13/2017 DISCHARGE DIAGNOSES: 1. Postoperative right craniotomy wound infection with methicillin-resistant Staphylococcus aureus, status post incision and drainage with irrigation 08/24/2017. 2. Status post right frontal craniotomy status post right frontal stereotactic craniotomy with right frontal glioblastoma resection. 3. Glioblastoma, status post resection. 4. Hypertension, stable. 5. Hyponatremia, improved. 6. Dysphagia, status post PEG tube insertion. 7. 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 8. Ischemic cardiomyopathy, chronic and stable. CONSULTATIONS: Dr. Marie and Dr. Dejesus with Neurosurgical Service. Dr. Camacho with Infectious D isease Service. Dr. Escobar with Pulmonology Service. PERTINENT LABORATORY AND X-RAY FINDINGS: Sodium ranged between 124 to 138. Phosphorus ranged betwee n less than 1 to 2.5. Magnesium level ranged between 1.7-2.8. CRP 11.89. CBC showed a white blood cell count ranging between 10.0-20.4. Blood cultures x2 from 08/22/2017 showed no growth at 5 days. Influenza A and B antigen dated 08/22/2017 negative. Right cranial wound culture dated 08/24/2017 s howed methicillin-resistant Staphylococcus aureus. Blood cultures x2 dated 08/31/2017 showed no grow th at 5 days. Urine culture dated 09/01/2017 showed no growth at [address] of the brain without contrast dated 08/22/2017 showed 3.3 x 3.1 cm heterogeneous intraaxial lesion in the right frontal re gion likely postoperative cavity. Soft tissue swelling in the periorbital region laterally on the ri ght. CT of the cervical spine dated 08/22/2017 showed multilevel degenerative changes without eviden ce of acute fracture or dislocation. CT of the thoracic spine dated 08/22/2017 showed no acute fract ure or dislocation. CT of the lumbar spine dated 08/22/2017 showed no acute fracture or dislocation. CT of the brain dated 08/26/2017 showed no acute or worsening process. HOSPITAL COURSE: The patient initially presented after being found down by family members with assoc iated right facial erythema concerning for cellulitis status post recent right frontal lobe craniotom y due to the glioblastoma. The patient underwent extensive evaluation with multiple imaging studies and placed on broad spectrum IV antibiotic therapy including vancomycin, cefepime and Flagyl. The pa mikhail was evaluated by the Neurosurgical Service status post right-sided craniotomy with recent gliob lastoma resection with undergoing repeat surgical intervention with incision and drainage with irriga tion and washout of the surgical wound on 08/24/2017. Cultures of the wound site showed methicillin- resistant Staphylococcus aureus at which point the patient continued on IV antibiotic therapy. The p maria de jesus was evaluated by the Infectious Disease service with recommendations to transition to linezoli d 600 mg b.i.d. Due to patient's overall deconditioned state, recent diagnosis of glioblastoma and n eurologic decline including aphasia and inability to ambulate, the patient underwent evaluation by Sp eech Therapy after concern for dysphagia and nutritional status. The patient underwent EGD and percu taneous endoscopic gastrostomy tube placement on 09/07/2017 for optimal nutritional supplementation a nd administration of chronic medications. The patient was placed on tube feeds with initially Jevity 1.5 with current recommendations of volume restricted 2.0 TwoCal per mL 3 cans per day. The patient was able to tolerate tube feeds without difficulty. The patient's hospital course was protracted du e to concern for cerebritis in the context of methicillin-resistant Staphylococcus aureus in the surg ical wound. The patient continued on regular evaluation by the neurosurgical service during the hosp ital course and antibiotic therapy throughout the hospital stay. The patient was evaluated by physic al, occupational, and speech therapy with overall recommendations to continue ongoing skilled care af ter discharge. The patient has been approved to transfer to [facility] to continue local wou nd care, physical, occupational, and speech therapy. On day of discharge, the patient remains aphasi c, opens eyes to her name and moves extremities spontaneously. The patient currently is sitting at t he edge of bed with contact guard assistance. Lungs remain clear to auscultation bilaterally and car diovascular exam shows S1, S2. PEG tube is in place in the abdominal cavity and the patient is overa ll clinically stable and ready for discharge on 09/13/2017. DISCHARGE MEDICATIONS: 1. Linezolid 600 mg per PEG tube b.i.d. until 10/04/2017. 2. Calcium carbonate 600 mg per PEG tube daily. 3. Vitamin D3 of 1000 units per PEG tube daily. 4. Tikosyn 0.125 mg per PEG tube t.i.d. 5. Lovenox 30 mg subcutaneously daily. 6. Keppra 250 mg per PEG tube b.i.d. 7. Losartan 50 mg per PEG tube b.i.d. 8. Magnesium 250 mg per PEG tube daily. 9. Toprol-XL 50 mg per PEG tube b.i.d. 10. Ranexa 500 mg per PEG tube b.i.d. 11. Vitamin E 400 units per PEG tube daily. FOLLOWUP: Patient may follow up with Dr. Parish at [facility] after discharge. The patient w ill follow up with Dr. Winston Marie with Neurosurgical Service and to call his office for appointment time and date. CONDITION ON DISCHARGE: Guarded. ACTIVITY: Sitting at the edge of bed with maximal assist x2 required. DIET: Tube feeding with volume restricted 2.0 TwoCal per mL 1 can 3 times per day, Pro-Stat t.i.d. a nd water flushes 30 mL q.4 hours. CODE STATUS: FULL. DISPOSITION: Discharged to [facility] 09/13/2017. Total time preparing and coordinating discharge 40 minutes.
[2017-09-13 15:35] VITALS: BP 166/68; TEMP 97.1
[2017-09-13] MEDS ORDERED: Nystatin 500,000 UNITS/5 ML UDCUP SSP SCH (21:00)
== END 2017-09-13 16:10 | disposition swing bed (61) | DRG 856 ==
LOC: ERS 11:41 → 2NO 18:04 → CCU 08-23 13:03 → SURG A 08-29 10:02
PROVIDERS: ADMIT Internal Medicine; ATTEND Internal Medicine
PROC: 0W910ZZ Drainage of Cranial Cavity, Open Approach (ICD-10-PCS; principal; 2017-08-24)
PROC: 02HV33Z Insertion of Infusion Device into Superior Vena Cava, Percutaneous Approach (ICD-10-PCS; 2017-08-28)
PROC: 0DH63UZ Insertion of Feeding Device into Stomach, Percutaneous Approach (ICD-10-PCS; 2017-09-07)
DX: T81.4XXA Infection following a procedure, initial encounter (principal); G93.40 Encephalopathy, unspecified; C71.9 Malignant neoplasm of brain, unspecified; E87.1 Hypo-osmolality and hyponatremia; R47.01 Aphasia; L03.211 Cellulitis of face; R13.10 Dysphagia, unspecified; I25.5 Ischemic cardiomyopathy; E11.9 Type 2 diabetes mellitus without complications; Z51.5 Encounter for palliative care; E78.5 Hyperlipidemia, unspecified; I10 Essential (primary) hypertension; K29.70 Gastritis, unspecified, without bleeding; A49.02 Methicillin resistant Staphylococcus aureus infection, unspecified site; Z88.5 Allergy status to narcotic agent; Z88.0 Allergy status to penicillin; Z79.82 Long term (current) use of aspirin; Z79.899 Other long term (current) drug therapy; Z95.810 Presence of automatic (implantable) cardiac defibrillator; Y83.8 Other surgical procedures as the cause of abnormal reaction of the patient, or of later complication, without mention of misadventure at the time of the procedure
CPT/HCPCS: 36415; 36416; 36569; 51701; 70450; 71045; 72125; 72128; 72131; 80048; 80051; 80053; 80202; 81001; 81003; 82553; 83735; 84100; 84484; 85025; 85610; 85652; 85730; 86140; 87040; 87070; 87077; 87086; 87186; 87205; 87804; 90471; 90670; 93005; 93970; 96365; 99214; A4216; A4353; C1751; G0009; G0463; G8978-GP-CN; G8979-GP-CL; G8996-GN-CL; G8996-GN-CM; G8997-GN-CK; J0131; J0360; J0670; J0692; J0696; J1644; J1650; J1940; J1953; J2001; J2020; J2060; J2185; J2405; J2704; J3010; J3370; J3480; J3490; J7050; J8499

== ENCOUNTER 2017-11-30 09:40 | Outpatient (CLI) | payer MEDICARE, BC ==
--- NOTE | 2017-11-30 11:44 | CT ---
HEAD CT WITH AND WITHOUT CONTRAST: COMPARISON: 10/09/17. History Followup glioblastoma. TECHNIQUE: Pre- and postcontrast head CT is performed in the axial plane. FINDINGS: Stable postsurgical changes involving the calvarium. No parenchymal hemorrhage. No extraaxial hematoma. No midline shift. Basilar cisterns are patent. Age-appropriate atrophy. Cortical mcclendon-white matter differentiation is preserved, with the exceptio n of the right frontal lobe. White matter hypodensities and chronic small vessel ischemic changes a re identified. There is also evidence of hypoattenuation of the right frontal periventricular and de ep white matter due to vasogenic edema. On the postcontrast images, there is a peripherally enhancin g lesion with central necrosis, measuring 3.2 cm mediolateral x 3.4 cm anterior posterior. When comp ared to the previous examination, the region of enhancement has increased in size. Previously, this area of enhancement measures 2.0 x 2.2 cm. There is subtle hyperdensity in the occipital horn of the right lateral ventricle. The degree of hyp erdensity has slightly decreased. On the postcontrast images, there is associated enhancement. Prev iously noted enhancement along the right frontal dura is not evident on the current examination. Adequate aeration of the sinuses and mastoid air cells. IMPRESSION: 1. Interval increase in size in terms of the enhancement involving the right frontal lobe suggesting progression of tumor versus superimposed scar tissue. 2. Increased enhancement of the occipital horn of the right ventricle. Spread of tumor is again fav ored. POS: [facility]
[2017-11-30] MEDS ORDERED: Iopamidol 370 76% 100 ML VIAL ONE (16:30)
== END 2017-11-30 09:41 | disposition home or self-care (01) ==
LOC: TBSIIMAG 09:40
PROVIDERS: ATTEND Surgery
DX: C71.9 Malignant neoplasm of brain, unspecified (principal)
CPT/HCPCS: 70470